=== PATIENT | male | born 1980 | race Caucasian/White ===

== ENCOUNTER → 2018-10-17 | Outpatient (CLI) | payer MEDICAID ==
--- NOTE | 2018-10-17 10:06 | REP ---
RIGHT UPPER QUADRANT ULTRASOUND: Real-time sonographic evaluation of the right upper quadrant was performed. There are small gallstones in the gallbladder with no gallbladder wall thickening or pericholecystic fluid or biliary dilatation. Common bile duct measures 3 mm. Liver demonstrates mild increased echotexture suggesting some degree of mild fatty infiltration. Pancreas could not be seen due to overlying bowel gas. Right kidney demonstrates no hydronephrosis with normal size 10.4 cm in length. IMPRESSION: Limited exam due to bowel gas. Small gallstones in the gallbladder without gallbladder wall thickening, pericholecystic fluid or biliary dilatation. Suspect mild fatty infiltration of the liver. Electronically Signed by Fan Larose MD 10/17/2018 05:23 P
== END ==
LOC: M RAD 08:16
PROVIDERS: ATTEND Physician Assistant
DX: R94.5 Abnormal results of liver function studies (principal); K80.20 Calculus of gallbladder without cholecystitis without obstruction

== ENCOUNTER 2021-05-05 12:28 | Emergency (ER) | payer MEDICAID ==
[~2021-05-05] VITALS: Ht 167.6 cm; Wt 84.1 kg
--- OUTSIDE RECORDS SUMMARY | 2021-05-05 12:38 | CCD | Continuity of Care Document ---
Author Author German ROSALES PA Organization Unknown Address [address] [place] [address] Phone [phone] Care Team Providers Care Halal Butcher Name Role Phone Bryant Meraz DO AUTM Unavailable Problems Active Problems Provider Date Hammer toe Karla Almeida DPM-pc Onset: 02/22/2018 Dystrophia unguium Karla Almeida DPM-pc Onset: 02/22/2018 Pain in limb Karla Almeida DPM-pc Onset: 02/22/2018 Metatarsus adductus Karla Almeida DPM-pc Onset: 02/22/2018 Ingrowing nail Karla Almeida DPM-pc Onset: 12/26/2020 Talipes planus Karla Almeida DPM-pc Onset: 12/26/2020 Tibialis tendinitis Karla Almeida DPM-pc Onset: 12/26/2020 Callosity on toe Karla Almeida DPM-pc Onset: 04/05/2019 Pronation Karla Almeida DPM-pc Onset: 04/05/2019 Social History Type Date Description Comments Sex Unknown Tobacco Use Start: Unknown Never Smoked Cigarettes Tobacco Use Start: Unknown Never Smoked Cigars Tobacco Use Start: Unknown Never Smoked A Pipe Smoking Status Reviewed: 03/10/21 Never Smoked A Pipe Tobacco Use Start: Unknown Never Used Smokeless Tobacco ETOH Use Denies alcohol use Tobacco Use Start: Unknown Patient has never smoked Allergies and adverse reactions Active Allergies Criticality Reaction | Severity Comments Date Penicillin Unable to assess criticality 02/22/2018 Medications Active Medications SIG Qnty Indications Ordering Provide r Date Dok 100mg Capsules Unknown Loratadine 10mg Tablets Unknown Metoprolol Tartrate 50mg Tablets Unknown Atorvastatin Calcium 10mg Tablets take 1 tablet by mouth once daily Unknown Ferrous Gluconate 324(38Fe) mg Tab lets take 1 tablet by mouth once daily Unknown Docqlace 100mg Capsules Unknown Omeprazole 20mg Capsules DR 1 by mouth every day Unknown History Medications Levofloxacin 500mg Tablets 1 by mouth once a day 10tabs Km Unger 1 - 03/10/2021 Immunizations Description No Information Available Vital Signs Date Vital Result Comment 05/03/2018 11:02am Weight 175.00 lb Weight 79.380 kg Height 64 inches 5'4" BMI (Body Mass Index) 30.0 kg/m2 BSA (Body Surface Area) 1.85 m2 02/22/2018 2:22pm Weight 176.00 lb Weight 79.834 kg Height 64 inches 5'4" BMI (Body Mass Index) 30.2 kg/m2 BSA (Body Surface Area) 1.85 m2 Results Description No Information Available Procedures Date Code Description Status 03/10/2021 48780 Trim Nondystrophic Nails Complet ed 02/04/2021 65188 Office/Outpatient Established Lo w MDM 20-29 Min Completed 02/04/2021 40047 Avulsion Nail Plate Simple Singl e Completed 01/21/2021 70553 Office/Outpatient Established SF MDM 10-19 Min Completed 12/26/2020 18743 Trim Nondystrophic Nails Complet ed Medical Devices Description No Information Available Encounters Description No Information Available Assessments Date Code Description Provider 03/10/2021 M21.6x9 Other acquired deformities of un specified foot Km Unger 03/10/2021 M20.41 Other hammer toe(s) (acquired), right foot Km Unger 03/10/2021 L60.0 Ingrowing nail Km Unger 03/10/2021 M21.40 Flat foot [pes planus] (acquired ), unspecified foot Km Unger 03/10/2021 L84 Corns and callosities Km Booker 03/10/2021 L60.3 Nail dystrophy Km Unger 02/04/2021 L60.0 Ingrowing nail Km Unger 02/04/2021 M20.41 Other hammer toe(s) (acquired), right foot Karla Almeida, DPM-pc 02/04/2021 M21.6x9 Other acquired deformities of un specified foot Karla Almeida DPM-pc 02/04/2021 M21.40 Flat foot [pes planus] (acquired ), unspecified foot Karla Almeida DPM-pc 02/04/2021 L84 Corns and callosities Karla Will iams, DPM-pc 02/04/2021 L60.3 Nail dystrophy Karla Almeida, DPM-pc 02/04/2021 M79.672 Pain in left foot Karla Almeida DPM-pc 02/04/2021 L03.031 Cellulitis of right toe Karla Gayle vianney, DPM-pc 01/21/2021 L60.0 Ingrowing nail Sohan Barbosa, DPM 12/26/2020 M20.41 Other hammer toe(s) (acquired), right foot Karla Almeida DPM-pc 12/26/2020 M21.6x9 Other acquired deformities of un specified foot Karla Almeida DPM-pc 12/26/2020 M21.40 Flat foot [pes planus] (acquired ), unspecified foot Karla Almeida DPM-pc 12/26/2020 L60.0 Ingrowing nail Karla Almeida, DPM-pc 12/26/2020 L84 Corns and callosities Karla Will iams, DPM-pc 12/26/2020 L60.3 Nail dystrophy Karla Almeida DPM-pc 12/26/2020 M79.672 Pain in left foot Karla MIMA AlmeidaM-renay Plan of Treatment Future Appointment(s):* 05/19/2021 1:15 pm - Km Unger at [facility] Podiatry 03/10/2021 - Km Unger* M21.6x9 Other acquired deformities of unspecified foot* Comments:* I removed hyperkeratosis from submet 5 and heels bilaterally with scalpel and burred to normal thickness. I trimmed dystrophic nails: x10 with nippers and bur. I will continue to monitor new nail growth on R1. Lotioned feet. Follow up in 10 weeks. * M20.41 Other hammer toe(s) (acquired), right foot * L60.0 Ingrowing nail * M21.40 Flat foot [pes planus] (acquired), unspecified foot * L84 Corns and callosities * L60.3 Nail dystrophy Functional Status Description No Information Available Mental Status Description No Information Available Referrals Description No Information Available
--- OUTSIDE RECORDS SUMMARY | 2021-05-05 12:38 | CCD | Continuity of Care Document ---
Author Author German LEHMAN DPM-PC Organization Unknown Address [address] [place] [address] Phone [phone] Care Team Providers Care Marine Equipment Test Engineer Name Role Phone Bryant Meraz DO AUTM Unavailable Problems Active Problems Provider Date Hammer toe Karla Lehman DPM-pc Onset: 02/22/2018 Dystrophia unguium Km Unger Onset: 02/22/2018 Pain in limb Karla Lehman DPM-renay Onset: 02/22/2018 Metatarsus adductus Km Unger Onset: 02/22/2018 Ingrowing nail Karla Lehman DPM-renay Onset: 12/26/2020 Talipes planus Karla Lehman DPM-renay Onset: 12/26/2020 Tibialis tendinitis Km Unger Onset: 12/26/2020 Callosity on toe Karla Lehman DPM-renay Onset: 04/05/2019 Pronation Karla Lehman DPM-renay Onset: 04/05/2019 Social History Type Date Description Comments Sex Unknown Tobacco Use Start: Unknown Never Smoked Cigarettes Tobacco Use Start: Unknown Never Smoked Cigars Tobacco Use Start: Unknown Never Smoked A Pipe Smoking Status Reviewed: 01/21/21 Never Smoked A Pipe Tobacco Use Start: Unknown Never Used Smokeless Tobacco ETOH Use Denies alcohol use Tobacco Use Start: Unknown Patient has never smoked Allergies, Adverse Reactions, Alerts Active Allergies Reaction Severity Comments Date Penicillin 02/22/2018 Medications Active Medications SIG Qnty Indications Ordering Provide r Date Levofloxacin 500mg Tablets 1 by mouth once a day 10tabs Karla Lehman DPM-pc Dok 100mg Capsules Unknown Loratadine 10mg Tablets Unknown Metoprolol Tartrate 50mg Tablets Unknown Atorvastatin Calcium 10mg Tablets take 1 tablet by mouth once daily Unknown Ferrous Gluconate 324(38Fe) mg Tab lets take 1 tablet by mouth once daily Unknown Docqlace 100mg Capsules Unknown Omeprazole 20mg Capsules DR 1 by mouth every day Unknown Immunizations Description No Information Available Vital Signs [...] Information Available Procedures Date Code Description Status 02/04/2021 20391 Office/Outpatient Established Lo w MDM 20-29 Min Completed 02/04/2021 64967 Avulsion Nail Plate Simple Singl e Completed 01/21/2021 00746 Office/Outpatient Established SF MDM 10-19 Min Completed 12/26/2020 23072 Trim Nondystrophic Nails Complet ed 10/17/2020 27335 Trim Nondystrophic Nails Complet ed 08/08/2020 73742 Trim Nondystrophic Nails Complet ed Medical Devices Description No Information Available Encounters Type Date Location Provider Dx Diagnosis Office Visit 02/04/2021 1:15p [facility] Podiatry Km Unger L6 0.0 Ingrowing nail M20.41 Other hammer toe(s) (acquire d), right foot M21.6x9 Other acquired deformities o f unspecified foot M21.40 Flat foot [pes planus] (acqu ired), unspecified foot L84 Corns and callosities L60.3 Nail dystrophy M79.672 Pain in left foot L03.031 Cellulitis of right toe Assessments Date Code Description Provider 02/04/2021 L60.0 Ingrowing nail Km Unger 02/04/2021 M20.41 Other hammer toe(s) (acquired), right foot Km Unger 02/04/2021 M21.6x9 Other acquired deformities of un specified foot Karla Lehman, DPM-pc 02/04/2021 M21.40 Flat foot [pes planus] (acquired ), unspecified foot Karla Lehman, DPM-pc 02/04/2021 L84 Corns and callosities Karla Will iams, DPM-pc 02/04/2021 L60.3 Nail dystrophy Karla Lehman, DPM-pc 02/04/2021 M79.672 Pain in left foot Karla Lehman , DPM-pc 02/04/2021 L03.031 Cellulitis of right toe Karla faith, DPM-pc 01/21/2021 L60.0 Ingrowing nail Sohan Barbosa, DPM 12/26/2020 M20.41 Other hammer toe(s) (acquired), right foot Karla Lehman, DPM-pc 12/26/2020 M21.6x9 Other acquired deformities of un specified foot Karla Lehman, DPM-pc 12/26/2020 M21.40 Flat foot [pes planus] (acquired ), unspecified foot Karla Lehman, DPM-pc 12/26/2020 L60.0 Ingrowing nail Krala Lehman, DPM-pc 12/26/2020 L84 Corns and callosities Karla Will iams, DPM-pc 12/26/2020 L60.3 Nail dystrophy Karla Lehman, DPM-pc 12/26/2020 M79.672 Pain in left foot Karla Lehman , DPM-pc 10/17/2020 M20.41 Other hammer toe(s) (acquired), right foot Karla Lehman, DPM-pc 10/17/2020 L60.3 Nail dystrophy Karla Lehman, DPM-pc 10/17/2020 M21.6x9 Other acquired deformities of un specified foot Karla Lehman, DPM-pc 10/17/2020 L84 Corns and callosities Karla Will iams, DPM-pc 08/08/2020 M20.41 Other hammer toe(s) (acquired), right foot Karla Lehman, DPM-pc 08/08/2020 L60.3 Nail dystrophy Karla Lehman, DPM-pc 08/08/2020 M21.6x9 Other acquired deformities of un specified foot Km Unger 08/08/2020 L84 Corns and callosities Karla Buenrostro Km carlson 08/08/2020 M79.672 Pain in left foot Km Unger Plan of Treatment Future Appointment(s):* 03/06/2021 11:00 am - Km Unger at [facility] Podiatry 02/04/2021 - Km Unger* L60.0 Ingrowing nail * M20.41 Other hammer toe(s) (acquired), right foot * M21.6x9 Other acquired deformities of unspecified foot * M21.40 Flat foot [pes planus] (acquired), unspecified foot * L84 Corns and callosities * L60.3 Nail dystrophy * M79.672 Pain in left foot * L03.031 Cellulitis of right toe* Comments:* I was unable to anesthetize him since he was agitated. He was able to do an examination of his right foot to ensure that he did not have any fractures to his dislocations by doing range of motion palpation and determined that the only thing a problematic was the infected ingrown nuisance nail of the right hallux I removed 3/4 of the distal tip of the right hallux nail and applied topical antibiotics, 2 x 2 and Coban. I put him on Levaquin. He can soak his foot in Epsom salts quarter cup in water for 15 minutes and then apply a light dressing with antibiotic and Band- Aid to the foot. Follow up in 1 week. * All * New Medication:* Levofloxacin 500 mg - 1 by mouth once a day Functional Status Description No Information Available Mental Status Description No Information Available Referrals Description No Information Available
--- OUTSIDE RECORDS SUMMARY | 2021-05-05 12:38 | CCD | Continuity of Care Document ---
Author Author German ROSALES PA Organization Unknown Address [address] [place] [address] Phone [phone] Care Team Providers Care Seat Nailer Name Role Phone Bryant Meraz DO AUTM [...] Available Procedures Date Code Description Status 03/10/2021 15190 Trim Nondystrophic Nails Complet ed 02/04/2021 16017 Office/Outpatient Established Lo w MDM 20-29 Min Completed 02/04/2021 07981 Avulsion Nail Plate Simple Singl e Completed 01/21/2021 30180 Office/Outpatient Established SF MDM 10-19 Min Completed 12/26/2020 44215 Trim Nondystrophic Nails Complet ed Medical Devices [...] 05/19/2021 1:15 pm - Km Unger at [facility] Podiatry 03/10/2021 - Km Unger* M21.6x9 Other [...]
--- OUTSIDE RECORDS SUMMARY | 2021-05-05 12:38 | CCD ---
Continuity of Care Document (CCD) Created on: 02/04/2021 German Brown External Reference #: [id number] : [id number] Sex: Male Author Author German LEHMAN DPM-PC Organization Unknown Address [address] [place] [address] Phone [phone] Care Team Providers Care Dispatcher Motor Vehicle Name Role Phone Bryant Meraz DO AUTM [...] Available Procedures Date Code Description Status 02/04/2021 16344 Office/Outpatient Established Lo w MDM 20-29 Min Completed 02/04/2021 53492 Avulsion Nail Plate Simple Singl e Completed 01/21/2021 02068 Office/Outpatient Established SF MDM 10-19 Min Completed 12/26/2020 71129 Trim Nondystrophic Nails Complet ed 10/17/2020 28041 Trim Nondystrophic Nails Complet ed 08/08/2020 96060 Trim Nondystrophic Nails Complet ed Medical Devices Description No Information Available Encounters Type Date Location Provider Dx Diagnosis Office Visit 02/04/2021 1:15p [facility] Podiatry Km Unger L6 0.0 Ingrowing [...] Karla Lehman, DPM-pc 12/26/2020 L60.0 Ingrowing nail Karla Lehman, DPM-pc 12/26/2020 L84 Corns and callosities [...] 03/06/2021 11:00 am - Km Unger at [facility] Podiatry 02/04/2021 - Km Unger* L60.0 [...]
--- OUTSIDE RECORDS SUMMARY | 2021-05-05 12:38 | CCD | Continuity of Care Document ---
Author Author German MOHAN D.O. Organization Unknown Address [address] [place] [id number] Phone [phone] Care Team Providers Care Broke Worker Name Role Phone Brennan Dela Cruz M.D. AUTM [phone] Bryant Mohan D.O. AUTM [phone] Problems Active Problems Provider Date Mental retardation Elias Torres M.D. Onset: 04/12/2007 Obstructive hydrocephalus Bryant Mohan D.O., JASMYNEFP Onset : 05/18/2007 Allergic rhinitis Elias Torres M.D. Onset: 07/26/2007 Heart valve replacement Elias Torres M.D. Onset: 008 Note: bovine Gastroesophageal reflux disease Bryant Mohan D.O., JASMYNEFP Onset: 05/30/2009 Hyperlipidemia Bryant Mohan D.O., FAAFP Onset: 09/28 Chronic nonalcoholic liver disease Bryant Mohan D.O., FA AFP Onset: 02/28/2013 Proteinuria Bryant Mohan D.O., FAAFP Onset: 08/2013 Benign hypertension Bryant Mohan D.O., FAAFP Onset: 11/26 Elevated liver enzymes level Bryant Mohan D.O., BARBRA On set: 12/08/2014 Note: FOLLOWED BY GI NEG W/U ? FATTY LIVER Intellectual disability Bryant Mohan D.O., JASMYNEFP Onset: 12/02/2018 Aortic valve disorder Bryant Mohan D.O., FAAFP Onset: Note: TAVR Social History Type Date Description Comments Sex Unknown Tobacco Use Start: Unknown Never Smoked Cigarettes ETOH Use alcohol use: never used Recreational Drug Use Never Used Drugs Tobacco Use Start: Unknown Patient has never smoked Smoking Status Reviewed: 11/20/20 Patient has never smoked Allergies, Adverse Reactions, Alerts Active Allergies Criticality Reaction | Severity Comments Date Penicillin Unable to assess criticality 08/19/2007 Medications Active Medications SIG Qnty Indications Ordering Provide r Date Carafate 1GM/10ML Suspension take 10ml by mouth three times a day 840ml Bryant Mohan D.O., F AAFP 11/29/2020 Albuterol Sulfate HFA 108(90Base) mcg/Act Aerosol Inhale 2 Puffs By Mouth Every 4 To 6 Hours as Needed 6.7units [facility] D.O., [facility] 11/05/[address] 1 by mouth every day (recommended by oncology) 60caps Bryant hanna D.O., FAAFP 08/14/2020 Pulmicort 0.5mg/2ML Suspension one by neb twice a day please call 60ml Bryant Mohan D.O., F AA 04/29/2020 Hydrocortisone 2.5% Cream apply externally two times a day to back x 10 dys 60gm Bryant Cherry , D.Charlene, [facility] 10/30/2019 Debrox 6.5% Solution 4 drops in each ear, let drops stay in each ear for 10 minutes x 3 days 1Bottle Bryant Mohan D.O., FAAFP 12/23/2018 Dok 100mg Capsules take 1 capsule by mouth twice daily for constipation 60caps Irvin Davis, FAAFP 05/11/2018 Clindamycin HCL 300mg Capsules take 2 capsules by mouth 1 hour before procedure 6caps Josette Mohan D.O., FAAFP 04/28/2018 Ferrous Gluconate 324(38Fe) mg Tab lets Take 1 Tablet By Mouth Every Day(Take For 60 Days) 30tabs Bryant Mohan D.O., FAAFP 10/14/2016 Metoprolol Tartrate 50mg Tablets Take 1 Tablet By Mouth Twice Daily 60tabs Bryant Mohan D.O ., FAAFP 03/20/2015 Albuterol Sulfate 0.63mg/3ML Nebul izer Inhale The Contents Of 1 Vial Every 6 Hours as Directed If Needed 300units Bryant Mohan D.O., FAAFP 04/15/2009 Loratadine 10mg Tablets Take 1 Tablet By Mouth Every Day 90tabs Bryant Mohan D.O., FAAFP Fish Oil Extra Strength 1200mg Capsules Unknown Moderna Covid-19 Vaccine 100mcg/0.5ML Suspension pt recieved both Unknown Aspirin 325mg Tablets 1 by mouth every day Per Process Server For Aortic Valve Replacement U nknown History Medications Aspirin 325mg Tablets take 1 tablet by mouth once daily Bryant Mohan D.O., FAAFP - 11/29/2020 Medications Administered in Office Medication SIG Qnty Indications Ordering Provider Date Injection (SC)/(Im) Injection [facility] D.O., [facility] 03/21/2021 Injection (SC)/(Im) Injection Bryant Mohan D.O., FAAFP 04/10/2014 Injection (SC)/(Im) Injection Bryant Mohan D.O., FAAFP 05/30/2013 Injection (SC)/(Im) Injection Bryant Mohan D.O., FAAFP 07/27/2012 Injection (SC)/(Im) Injection Bryant Mohan D.O., FAAFP 04/04/2012 Injection (SC)/(Im) Injection Bryant Mohan D.O., FAAFP 05/18/2011 Injection (SC)/(Im) Injection Bryant Mohan D.O., FAAFP 03/03/2011 Injection (SC)/(Im) Injection Bryant Mohan D.O., FAAFP 06/24/2010 Immunizations CPT Code Status Date Vaccine Lot # [id number] Given 03/21/2021 Influenza Virus Vaccine, Quadrivalent, Slit Virus, Im Use 3Y & Up 40100 Given 04/29/2020 Influenza Virus Vaccine, Quadrivalent, Slit Virus, Im Use 3Y & Up [id number] 97403 Given 06/16/2019 Influenza Virus Vaccine, Quadrivalent, Slit Virus, Im Use 3Y & Up [id number] 25377 Given 05/13/2018 Influenza Virus Vaccine, Quadrivalent, Slit Virus, Im Use 3Y & Up [id number] 66259 Given 04/20/2017 Influenza Virus Vaccine, Quadrivalent, Slit Virus, Im Use 3Y & Up [id number] 27074 Given 05/13/2016 Influenza Virus Vaccine, Quadrivalent, Slit Virus, Im Use 3Y & Up [id number] 59572 Given 08/28/2015 Influenza Virus Vac. Split Virus Individuals 3 Years And Above 79711 Given 04/10/2014 Influenza Virus Vac. Split Virus Individuals 3 Years And Above [id number] 15140 Given 01/10/2014 Tdap Tetanus,Dip htheria Toxoids/Acellular Pertussis 7Yrs Or Older [id number] 72029 Given 05/30/2013 Influenza Virus Vac. Split Virus Individuals 3 Years And Above [id number] 01415 Given 07/27/2012 PPD Tuberculosis Intradermal 41798 Given 04/04/2012 Influenza Virus Vac. Split Virus Individuals 3 Years And Above [id number] 87071 Given 05/18/2011 Influenza Virus Vac. Split Virus Individuals 3 Years And Above [id number] 26109 Given 03/03/2011 Pneumococcal Immunization 06 14 11570 Given 06/24/2010 Influenza Virus Vac. Split Virus Individuals 3 Years And Above [id number] 31312 Given 05/30/2009 Influenza Virus Vac. Split Virus Individuals 3 Years And Above [id number] 25270 Given 02/06/2004 PPD Tuberculosis Intradermal Vital Signs Date Vital Result Comment 03/21/2021 9:32am BP Systolic 130 mmHg BP Diastolic 70 mmHg Body Temperature 97.2 F Heart Rate 71 /min Respiratory Rate 18 /min Height 64.25 inches 5'4.25" Weight 186.00 lb Clarks Body Weight 130 lb BMI (Body Mass Index) 31.7 kg/m2 O2 % BldC Oximetry 96 % 11/20/2020 1:41pm BP Systolic 130 mmHg BP Diastolic 72 mmHg Body Temperature 98.0 F Heart Rate 71 /min Height 64.25 inches 5'4.25" Weight 182.00 lb Clarks Body Weight 130 lb BMI (Body Mass Index) 31.0 kg/m2 O2 % BldC Oximetry 98 % Results Test Acquired Date Facility Test Result H/L Range Note CBC W/Automated Diff 11/20/2020 [place] [address] [phone] CBC W/Automated Diff (SEE NOTE) 1, 2 WBC 6.0 10^3/uL 4.2 - 11.0 RBC 4.91 10^6/uL 4.50 - 6.30 Hemoglobin 11.7 g/dL Low 14.0 - 16.0 Hematocrit 38.3 % Low 41.0 - 51.0 MCV 78.0 fL Low 80.0 - 94.0 MCH 23.8 pg Low 27.0 - 34.0 MCHC 30.5 g/dL Low 31.0 - 36.0 RDW 13.7 % 11.5 - 14.8 Platelets 258 10^3/uL 150 - 450 MPV 10.8 fL High 7.4 - 10.4 Neut 60.9 % 37.0 - 80.0 Lymph 22.9 % Low 25.0 - 40.0 [place] 7.2 % 3.0 - 8.0 Eos 7.5 % High 0.0 - 7.0 Baso 1.2 % 0.0 - 2.0 %Ig 0.3 % High 0.0 - 0.0 %NRBC 0.0 % 0.0 - 0.0 #Neut 3.65 10^3/uL 2.00 - 6.90 #Lymph 1.37 10^3/uL 0.60 - 3.40 #[place] 0.43 10^3/uL 0.00 - 0.90 #Eos 0.45 10^3/uL 0.00 - 0.70 #Baso 0.07 10^3/uL 0.00 - 0.20 #Ig 0.02 10^3/uL 0.00 - 0.10 #NRBC 0.00 10^3/uL 0.00 - 0.00 Manual Diff NOT INDICATED RBC Morph NOT INDICATED Comprehensive Metabolic Panel 11/20/2020 [place] [address] [phone] Comprehensive Metabo (SEE NOTE) 3 Sodium 140 mEq/L 134 - 153 Potassium 4.1 mEq/L 3.6 - 5.0 Chloride 103 mEq/L 98 - 107 Co2 28 mEq/L 22 - 30 Glucose 88 mg/dL 70 - 99 BUN 15 mg/dL 7 - 21 Creatinine 0.8 mg/dL 0.7 - 1.5 BUN/Creat 19 8 - 27 Total Protein 7.2 g/dL 6.3 - 8.2 Albumin 4.1 g/dL 3.9 - 5.0 Globulin 3.1 GM/DL 2.4 - 3.2 A/G Ratio 1.3 0.8 - 2.0 Calcium 9.2 mg/dL 8.4 - 10.2 Total Bili <0.7 mg/dL 0.2 - 1.3 Alkaline Phos 201 U/L High 38 - 126 Sgot/Ast 44 U/L High 5 - 40 SGPT/Alt 51 U/L 7 - 56 Anion Gap 9.0 mmol/L 8.0 - 16.0 Age 40 yrs Non-Aa GFR >60 mL/min Afr Amer GFR >60 mL/min 4 Cve Panel 11/20/2020 [place] [address] [phone] Cve Panel (SEE NOTE) 5 Cholesterol 226 mg/dL High 131 - 200 Triglycerides 146 mg/dL 35 - 160 HDL 71 mg/dL 29 - 86 LDL 143 mg/dL 65 - 175 Risk Factor 3.2 Low 3.4 - 4.9 LDL/HDL 2.01 1.00 - 3.55 6 Urinalysis 11/20/2020 [place] [address] [phone] Urinalysis (SEE NOTE) 7 Source Random Void Color yellow Normal: Yellow Clarity clear Normal: Clear Spec [place] 1.020 1.001 - 1.030 pH 5 5 - 9 Glucose NORM Normal: Negative Bilirubin NEG Normal: Negative Ketone NEG Normal: Negative Protein 100 Abnormal Normal: Negative Nitrite NEG Normal: Negative Blood NEG Normal: Negative Leuk Est 100 Abnormal Normal: Negative Urobilinogen NOR less than 1.0 mg/dL Microscopic See Below WBC 30 - 40 Abnormal Normal: None Seen RBC 0 - 1 Normal: None Seen Epithelial FEW Normal: None Seen Bacteria 1+ SMALL Normal: None Seen Mucous Trace Normal: None Seen Laboratory test finding 11/20/2020 [facility] [place] [address] [phone] CPK 118 U/L 30 - 170 Culture Urine 11/20/2020 [facility] [place] [address] [phone] Culture Urine (SEE NOTE) 8 Laboratory test finding 11/20/2020 [facility] [place] [address] [phone] Ferritin Kristina 14.5 ng/mL 5.0 - 244 Iron Binding Capacity 11/20/2020 [facility] [place] [address] [phone] Iron 28 g/dL Low 42 - 135 Uibc 404 g/dL High 112 - 347 Tibc 432 g/dL 250 - 450 Iron Sat 6 % 1 {SOURCE: Random Void~NURSE COLLECTED? N Is patient fasting? N Is patient fasting? N 2 COMPLETE BLOOD COUNT 3 COMPREHENSIVE METABOLIC PANE L 4 Male GFR Interprentation 20-49 yrs >60 mL/min Normal 50-59 yrs >56 mL/min Normal 60-69 yrs >49 mL/min Normal 70-79yrs >42 mL/min Normal 80 and above >35 mL/min Normal Female GFR Interpretation 20-39 yrs >60 mL/min Normal 40-49 yrs >58 mL/min Normal 50-59 yrs >51 mL/min Normal 60-69 yrs >45 mL/min Normal 70-79 yrs >39 mL/min Normal 80 and above >32 mL/min Normal 5 LIPID PANEL 6 CVE RISK CHOL/HDL LDL/HDL MEN: 1/2 AVERAGE 3.43 1.00 AVERAGE 4.97 3.55 2X AVERAGE 9.55 6.25 3X AVERAGE 23.99 7.99 WOMEN: / AVERAGE 3.27 1.47 AVERAGE 4.44 3.22 2X AVERAGE 7.05 5.03 3X AVERAGE 11.04 6.14 7 URINALYSIS 8 _CULTURE URINE_ ^$[id number] ^^[id number] $$867893 ^^596794 $$075890 $$361638 $$578213 $$348521 $$180439 $$934311 $$082391 $$765614 $$277989 $$957946 $$872877 $$800475 $$888389 $$325240 $$842153 $$693639 $$740973 $$724721 $$788503 $$821638 $$320635 $$892470 $$147500 ^^665044 $$918663 $$735901 $$092310 -- Continued on next page -- Patient: PRICILA Cevallos Order: Page 2 Culture: CULTURE URINE Status: Final -- Continued on next page -- Patient: PRICILA SON J Order: Page 2 Culture: CULTURE URINE Status: Prelim $$[id number] $$[id number] REPORTED DATE/TIME: 11/26/2020 14:06 Culture: CULTURE URINE Status: Final Urine Culture,Comprehensive: P1 No growth in 36 - 48 hours. Previous result entered on 11/23/2020 09:53 ET No growth after 18-24 hours. P1 [facility]: [id number] [address] [place] [phone] [facility] [address] Undercollar Baster : Aguilar Schwartz MD NPI #: Casing Sewer : 11/23/20.1042.XMT.SENT REF 11/27/20.XMT.SENT REF 11/27/20.DW .to MARQUES JOANGAYATHRI via fax Procedures Date Code Description Status 03/21/2021 65555 Office/Outpatient Established Mo d MDM 30-39 Min Completed 03/21/2021 56732 Injection (SC)/(Im) Completed 11/22/2020 04447 Removal Impacted Cerumen Irrigat ion/Lavage Unilateral Completed 11/20/2020 64386 Office/Outpatient Established Mo d MDM 30-39 Min Completed Medical Devices Description No Information Available Encounters Type Date Location Provider Dx Diagnosis Office Visit 03/21/2021 9:15a [place] [facility] Bryant Mohan D.O ., FAAFP E78.5 Hyperlipidemia, unspecified I10 Essential (primary) hyperten brit K76.0 Fatty (change of) liver, not elsewhere classified K21.9 Gastro-esophageal reflux dis ease without esophagitis Z95.2 Presence of prosthetic heart valve D50.9 Iron deficiency anemia, unsp ecified Office Visit 11/20/2020 2:00p [place] [facility] Luli Davis, FAAFP E78.5 Hyperlipidemia, unspecified I10 Essential (primary) hyperten brit K76.0 Fatty (change of) liver, not elsewhere classified K21.9 Gastro-esophageal reflux dis ease without esophagitis F79 Unspecified intellectual dis abilities Z95.2 Presence of prosthetic heart valve H61.22 Impacted cerumen, left ear H61.21 Impacted cerumen, right ear Assessments Date Code Description Provider 03/21/2021 E78.5 Hyperlipidemia, unspecified Adrian Mohan D.O., FAAFP 03/21/2021 I10 Essential (primary) hypertension Bryant Mohan D.O., FAAFP 03/21/2021 K76.0 Fatty (change of) liver, not els ewhere classified Bryant Mohan D.O., FAAFP 03/21/2021 K21.9 Gastro-esophageal reflux disease without esophagitis Bryant Mohan D.O., FAAFP 03/21/2021 Z95.2 Presence of prosthetic heart jodi ve Jemal Davis.Charlene, FAAFP 03/21/2021 D50.9 Iron deficiency anemia, unspecif ied Bryant Mohan D.O., FAAFP 11/22/2020 H61.22 Impacted cerumen, left ear Lyndon Mohan D.O., FAAFP 11/22/2020 H61.21 Impacted cerumen, right ear Irvin MiddletonOSabrina, FAAFP 11/20/2020 E78.5 Hyperlipidemia, unspecified Adrian Mohan D.O., [facility] 11/20/2020 I10 Essential (primary) hypertension Bryant Mohan D.O., [facility] 11/20/2020 K76.0 Fatty (change of) liver, not els ewhere classified Bryant Mohan D.O., [facility] 11/20/2020 K21.9 Gastro-esophageal reflux disease without esophagitis Bryant Mohan D.O., [facility] 11/20/2020 F79 Unspecified intellectual disabil ities Bryant Mohan D.O., [facility] 11/20/2020 Z95.2 Presence of prosthetic heart jodi ve Bryant Mohan D.O., [facility] 11/20/2020 H61.22 Impacted cerumen, left ear Lyndon Mohan D.O., [facility] 11/20/2020 H61.21 Impacted cerumen, right ear Adrian Mohan D.O., FAAFP Plan of Treatment Future Appointment(s):* 06/24/2021 10:00 am - Bryant Mohan D.O., FAAFP at [facility] Functional Status Description No Information Available Mental Status Description No Information Available Referrals Refer to Reason for Referral Status Appt Date [facility] PLEASE EVAL COMPLAINTS OF SOB AND OCCAS IONAL WHEEZING Closed 03/12/[address] [place] [address] [phone]
--- OUTSIDE RECORDS SUMMARY | 2021-05-05 12:38 | CCD | Continuity of Care Document ---
Author Author German MOHAN D.O. Organization Unknown Address [address] [place] [address] Phone [phone] Care Team Providers Care Blender/Braze Applicator Name Role Phone Brennan Dela Cruz M.D. AUTM [phone] Bryant Mohan D.O. AUTM [phone] Problems Active Problems Provider Date Mental retardation Elias Torres M.D. Onset: 04/12/2007 Obstructive hydrocephalus Bryant Mohan D.O., JASMYNEFP Onset : 05/18/2007 Allergic rhinitis Elias Torres M.D. Onset: 07/26/2007 Heart valve replacement Elais Torres M.D. Onset: 008 Note: bovine Gastroesophageal [...] Hours as Needed 6.7units [facility].O., [facility] 11/05/[address] 1 by mouth every day (recommended by oncology) 60caps Bryant hanna D.O., FAAFP 08/14/2020 Pulmicort 0.5mg/2ML Suspension one by neb twice a day please call 60ml Bryant Mohan D.O., F AA 04/29/2020 Hydrocortisone 2.5% Cream apply externally two times a day to back x 10 dys 60gm Bryant Cherry , D.Charlene, [facility] 10/30/2019 Debrox 6.5% Solution 4 drops in [...] Directed If Needed 300units Bryant [facility]an D.O., [facility] 04/15/2009 Loratadine 10mg Tablets Take 1 Tablet By Mouth Every Day 90tabs Bryant Mohan D.O., FAAFP Fish Oil Extra Strength 1200mg Capsules Unknown Moderna Covid-19 Vaccine 100mcg/0.5ML Suspension pt recieved both Unknown Aspirin 325mg Tablets 1 by mouth every day Per College Counselor For Aortic Valve Replacement U nknown History Medications Aspirin 325mg Tablets take 1 tablet by mouth once daily Bryant [facility]an D.O., [facility] - 11/29/2020 Medications Administered in Office Medication SIG Qnty Indications Ordering Provider Date Injection (SC)/(Im) Injection Bryant Mohan D.O., [facility] 03/21/2021 Injection (SC)/(Im) Injection Bryant Mohan D.O., [...] CPT Code Status Date Vaccine Lot # [id number] Given 03/21/2021 Influenza Virus Vaccine, Quadrivalent, Slit Virus, Im Use 3Y & Up [id number] 04268 Given 04/29/2020 Influenza Virus Vaccine, Quadrivalent, Slit Virus, Im Use 3Y & Up [id number] 03485 Given 06/16/2019 Influenza Virus Vaccine, Quadrivalent, Slit Virus, Im Use 3Y & Up [id number] 19574 Given 05/13/2018 Influenza Virus Vaccine, Quadrivalent, Slit Virus, Im Use 3Y & Up [id number] 39460 Given 04/20/2017 Influenza Virus Vaccine, Quadrivalent, Slit Virus, Im Use 3Y & Up [id number] 02478 Given 05/13/2016 Influenza Virus Vaccine, Quadrivalent, Slit Virus, Im Use 3Y & Up [id number] 97906 Given 08/28/2015 Influenza Virus Vac. Split Virus Individuals 3 Years And Above 45161 Given 04/10/2014 Influenza Virus Vac. Split Virus Individuals 3 Years And Above [id number] 83503 Given 01/10/2014 Tdap Tetanus,Dip htheria Toxoids/Acellular Pertussis 7Yrs Or Older [id number] 71490 Given 05/30/2013 Influenza Virus Vac. Split Virus Individuals 3 Years And Above [id number] 37286 Given 07/27/2012 PPD Tuberculosis Intradermal 36889 Given 04/04/2012 Influenza Virus Vac. Split Virus Individuals 3 Years And Above [id number] 37461 Given 05/18/2011 Influenza Virus Vac. Split Virus Individuals 3 Years And Above [id number] 89692 Given 03/03/2011 Pneumococcal Immunization 06 14 55828 Given 06/24/2010 Influenza Virus Vac. Split Virus Individuals 3 Years And Above [id number] 83130 Given 05/30/2009 Influenza Virus Vac. Split Virus Individuals 3 Years And Above [id number] 14427 Given 02/06/2004 PPD Tuberculosis Intradermal Vital Signs Date Vital Result Comment 03/21/2021 9:32am BP Systolic 130 mmHg BP Diastolic 70 mmHg Body Temperature 97.2 F Heart Rate 71 /min Respiratory Rate 18 /min Height 64.25 inches 5'4.25" Weight 186.00 lb [place] Body Weight 130 lb BMI (Body Mass Index) 31.7 kg/m2 O2 % BldC Oximetry 96 % 11/20/2020 1:41pm BP Systolic 130 mmHg BP Diastolic 72 mmHg Body Temperature 98.0 F Heart Rate 71 /min Height 64.25 inches 5'4.25" Weight 182.00 lb [place] Body Weight 130 lb BMI (Body Mass Index) 31.0 kg/m2 O2 % BldC Oximetry 98 % Results Test Acquired Date Facility Test Result H/L Range Note CBC With Differential/Platelet 03/21/2021 [facility] [place] E WBC 4.6 x10E3/uL 3.4-10.8 RBC 5.83 x10E6/uL High 4.14-5.80 Hemoglobin 15.8 g/dL 13.0-17.7 Hematocrit 47.1 % 37.5-51.0 MCV 81 fL 79-97 MCH 27.1 pg 26.6-33.0 MCHC 33.5 g/dL 31.5-35.7 RDW 15.0 % 11.6-15.4 Platelets 167 x10E3/uL 150-450 Neutrophils 53 % Not Estab. Lymphs 30 % Not Estab. Monocytes 8 % Not Estab. Eos 7 % Not Estab. Basos 2 % Not Estab. Immature Cells TNP Neutrophils (Absolute) 2.4 x10E3/uL 1.4-7.0 Lymphs (Absolute) 1.4 x10E3/uL 0.7-3.1 Monocytes(Absolute) 0.4 x10E3/uL 0.1-0.9 Eos (Absolute) 0.3 x10E3/uL 0.0-0.4 Baso (Absolute) 0.1 x10E3/uL 0.0-0.2 Immature Granulocytes 0 % Not Estab. Immature Grans (Abs) 0.0 x10E3/uL 0.0-0.1 NRBC TNP Hematology Comments: TNP Comp. Metabolic Panel (14) 03/21/2021 [facility] [place] Glucose 94 mg/dL 65-99 BUN 13 mg/dL 6-20 Creatinine 0.79 mg/dL 0.76-1.27 eGFR If NonAfricn Am 113 mL/min/1.73 >59 eGFR If Africn Am 131 mL/min/1.73 >59 1 BUN/Creatinine Ratio 16 9-20 Sodium 140 mmol/L 134-144 Potassium 4.3 mmol/L 3.5-5.2 Chloride 103 mmol/L 96-106 Carbon Dioxide, Total 26 mmol/L 20-29 Calcium 9.1 mg/dL 8.7-10.2 Protein, Total 7.1 g/dL 6.0-8.5 Albumin 3.9 g/dL Low 4.0-5.0 Globulin, Total 3.2 g/dL 1.5-4.5 A/G Ratio 1.2 1.2-2.2 Bilirubin, Total 0.6 mg/dL 0.0-1.2 Alkaline Phosphatase 215 IU/L High 44-121 2 Ast (Sgot) 51 IU/L High 0-40 Alt (SGPT) 49 IU/L High 0-44 CBC W/Automated Diff 11/20/2020 [place], [place] [address] [phone] CBC W/Automated Diff (SEE NOTE) 3, 4 WBC 6.0 10^3/uL 4.2 - 11.0 RBC [...] Lymph 22.9 % Low 25.0 - 40.0 [place] 7.2 % 3.0 - 8.0 Eos 7.5 % High 0.0 - 7.0 Baso 1.2 % 0.0 - 2.0 %Ig 0.3 % High 0.0 - 0.0 %NRBC 0.0 % 0.0 - 0.0 #Neut 3.65 10^3/uL 2.00 - 6.90 #Lymph 1.37 10^3/uL 0.60 - 3.40 #[place] 0.43 10^3/uL 0.00 - 0.90 #Eos 0.45 10^3/uL 0.00 - 0.70 #Baso 0.07 10^3/uL 0.00 - 0.20 #Ig 0.02 10^3/uL 0.00 - 0.10 #NRBC 0.00 10^3/uL 0.00 - 0.00 Manual Diff NOT INDICATED RBC Morph NOT INDICATED Comprehensive Metabolic Panel 11/20/2020 [facility] [place] [address] [phone] Comprehensive Metabo (SEE NOTE) 5 Sodium 140 mEq/L 134 - 153 Potassium [...] >60 mL/min Afr Amer GFR >60 mL/min 6 Cve Panel 11/20/2020 [place] [address] [phone] Cve Panel (SEE NOTE) 7 Cholesterol 226 mg/dL High 131 - 200 Triglycerides 146 mg/dL 35 - 160 HDL 71 mg/dL 29 - 86 LDL 143 mg/dL 65 - 175 Risk Factor 3.2 Low 3.4 - 4.9 LDL/HDL 2.01 1.00 - 3.55 8 Urinalysis 11/20/2020 [place] [address] [phone] Urinalysis (SEE NOTE) 9 Source Random Void Color yellow Normal: Yellow Clarity clear Normal: Clear Spec [place] 1.020 1.001 - 1.030 pH 5 5 [...] Normal: None Seen Laboratory test finding 11/20/2020 [place] [address] [phone] CPK 118 U/L 30 - 170 Culture Urine 11/20/2020 [place] [address] [phone] Culture Urine (SEE NOTE) 10 Laboratory test finding 11/20/2020 [place] [address] [phone] Ferritin Kristina 14.5 ng/mL 5.0 - 244 Iron Binding Capacity 11/20/2020 [place] [address] [phone] Iron 28 g/dL Low 42 - 135 Uibc 404 g/dL High 112 - 347 Tibc 432 g/dL 250 - 450 Iron Sat 6 % 1 [facility] currently reports eGFR in compliance with the current recommendations of the National Kidney Foundation. [facility] will update reporting as new guidelines are published from the NKF-ASN Task force. 2 Please note reference inte rval change 3 {SOURCE: Random Void~NURSE COLLECTED? N Is patient fasting? N Is patient fasting? N 4 COMPLETE BLOOD COUNT 5 COMPREHENSIVE METABOLIC PANE L 6 Male GFR Interprentation 20-49 yrs >60 mL/min Normal 50-59 yrs >56 mL/min Normal 60-69 yrs >49 mL/min Normal 70-79yrs >42 mL/min Normal 80 and above >35 mL/min Normal Female GFR Interpretation 20-39 yrs >60 mL/min Normal 40-49 yrs >58 mL/min Normal 50-59 yrs >51 mL/min Normal 60-69 yrs >45 mL/min Normal 70-79 yrs >39 mL/min Normal 80 and above >32 mL/min Normal 7 LIPID PANEL 8 CVE RISK CHOL/HDL LDL/HDL MEN: 1/2 AVERAGE 3.43 1.00 AVERAGE 4.97 3.55 2X AVERAGE 9.55 6.25 3X AVERAGE 23.99 7.99 WOMEN: 1/2 AVERAGE 3.27 1.47 AVERAGE 4.44 3.22 2X AVERAGE 7.05 5.03 3X AVERAGE 11.04 6.14 9 URINALYSIS 10 _CULTURE URINE_ ^$703820 ^^318706 $$023429 ^^274436 $$800156 $$146056 $$831876 $$707195 $$900863 $$069671 $$827619 $$458212 $$844854 $$036052 $$056366 $$123816 $$014110 $$521146 $$214968 $$202288 $$224629 $$994162 $$860388 $$206920 $$306875 $$227351 $$875525 ^^113388 $$022840 $$482960 $$474131 -- Continued on next page -- Patient: PRICILA SON J Order: [id number] [place] 2 Culture: CULTURE URINE Status: Final -- Continued on next page -- Patient: PRICILA SON J Order: [place] 2 Culture: CULTURE URINE Status: Prelim $$[id number] $$[id number] REPORTED DATE/TIME: 11/26/2020 14:06 Culture: CULTURE URINE Status: Final Urine Culture,Comprehensive: P1 No growth in 36 - 48 hours. Previous result entered on 11/23/2020 09:53 ET No growth after 18-24 hours. P1 Test performed by: [facility] Christy CORTEZ #: [id number] [address] [place] [address] Avenue [id number] [facility] [address] Isobutylene Operator Chief : Aguilar Schwartz MD NPI #: Chief Communications Officer : 11/23/20.1042.XMT.SENT REF 11/27/20.XMT.SENT REF 11/27/20.DW .to MARQUES LENNON via fax Procedures Date Code Description Status 03/21/2021 76128 Office/Outpatient Established Mo d MDM 30-39 Min Completed 03/21/2021 51801 Injection (SC)/(Im) Completed 11/22/2020 86617 Removal Impacted Cerumen Irrigat ion/Lavage Unilateral Completed 11/20/2020 56083 Office/Outpatient Established Mo d MDM 30-39 Min Completed Medical Devices Description No Information Available Encounters Type Date Location Provider Dx Diagnosis Office Visit 03/21/2021 9:15a [place] [facility] Llui Davis, FAAFP E78.5 Hyperlipidemia, unspecified I10 Essential (primary) hyperten brit K76.0 Fatty (change of) liver, not elsewhere classified K21.9 Gastro-esophageal reflux dis ease without esophagitis Z95.2 Presence of prosthetic heart valve D50.9 Iron deficiency anemia, unsp ecified Office Visit 11/20/2020 2:00p [place] [facility] Luli Davis, FAAFP E78.5 Hyperlipidemia, unspecified [...] prosthetic heart jodi ve Bryant Mohan D.O., FAAFP 03/21/2021 D50.9 Iron deficiency anemia, unspecif ied [facility] D.O., [facility] 11/22/2020 H61.22 Impacted cerumen, left ear Lyndon Mohan D.O., FAAFP 11/22/2020 H61.21 Impacted cerumen, right ear Adrian Mohan D.O., [facility] 11/20/2020 E78.5 Hyperlipidemia, unspecified Adrian [facility]an D.O., [facility] 11/20/2020 I10 Essential (primary) hypertension Bryant Mohan D.O., [facility] 11/20/2020 K76.0 Fatty (change of) liver, not els ewhere classified Bryant Mohan D.O., [facility] 11/20/2020 K21.9 Gastro-esophageal reflux disease without esophagitis Bryant Mohan D.O., [facility] 11/20/2020 F79 Unspecified intellectual disabil ities Bryant Mohan D.O., [facility] 11/20/2020 Z95.2 Presence of prosthetic heart jodi ve Bryant Mohan D.O., [facility] 11/20/2020 H61.22 Impacted cerumen, left ear Lyndon Mohan D.O., [facility] 11/20/2020 H61.21 Impacted cerumen, right ear Adrian Mohan D.O., FAAFP Plan of Treatment Future Appointment(s):* 06/24/2021 10:00 am - Bryant Mohan D.O., FAAFP at [facility] Functional Status Description No Information Available Mental Status Description No Information Available Referrals Refer to Reason for Referral Status Appt Date [facility] PLEASE EVAL COMPLAINTS OF SOB AND OCCAS IONAL WHEEZING Closed 03/12/[address] [place] [address] [phone]
--- OUTSIDE RECORDS SUMMARY | 2021-05-05 12:38 | CCD | Continuity of Care Document ---
Author Author German MOHAN D.O. Organization Unknown Address [address] [place] [address] Phone [phone] Care Team Providers Care Observation Nurse Name Role Phone Brennan Dela Cruz M.D. AUTM [phone] Bryant Mohan D.O. AUTM [phone] Problems Active Problems Provider Date Mental retardation Elias Torres M.D. Onset: 04/12/2007 Obstructive hydrocephalus Bryant Mohan D.O., [facility] Onset : 05/18/2007 Allergic rhinitis Elias Torres M.D. Onset: 07/26/2007 Heart valve replacement Elias Torres M.D. Onset: 008 Note: bovine Gastroesophageal reflux disease Bryant Mohan D.O., JASMYNEFP Onset: 05/30/2009 Hyperlipidemia Bryant oMhan D.O., FAAFP Onset: 09/28 Chronic nonalcoholic liver [...] Hours as Needed 6.7units [facility]., [facility] 11/05/[address] 1 by mouth every day (recommended by oncology) 60caps Bryant hanna D.O., FAAFP 08/14/2020 Pulmicort 0.5mg/2ML Suspension one by neb twice a day please call 60ml Bryant Mohan D.O., F AA 04/29/2020 Hydrocortisone 2.5% Cream apply externally two times a day to back x 10 dys 60gm Bryant Cherry , D.Charlene, [facility] 10/30/2019 Debrox 6.5% Solution 4 drops [...] Directed If Needed 300units [facility] D.O., [facility] 04/15/2009 Loratadine 10mg Tablets Take 1 Tablet By Mouth Every Day 90tabs Bryant Mohan D.O., FAAFP Fish Oil Extra Strength 1200mg Capsules Unknown Moderna Covid-19 Vaccine 100mcg/0.5ML Suspension pt recieved both Unknown Aspirin 325mg Tablets 1 by mouth every day Per Phone Circuit Operator For Aortic Valve Replacement U nknown History Medications Aspirin 325mg Tablets take 1 tablet by mouth once daily [facility] D.O., [facility] - 11/29/2020 Medications Administered in Office Medication SIG Qnty Indications Ordering Provider Date Injection (SC)/(Im) Injection Bryant Mohan D.O., [facility] 04/10/2014 Injection (SC)/(Im) Injection Bryant Mohan D.O., FAAFP 05/30/2013 Injection (SC)/(Im) Injection Bryant Mohan D.O., FAAFP 07/27/2012 Injection (SC)/(Im) Injection Bryant Mohan D.O., FAAFP 04/04/2012 Injection (SC)/(Im) Injection Bryant Mohan D.O., FAAFP 05/18/2011 Injection (SC)/(Im) Injection Bryant Mohan D.O., FAAFP 03/03/2011 Injection (SC)/(Im) Injection Bryant Mohan D.O., FAAFP 06/24/2010 Immunizations CPT Code Status Date Vaccine Lot # [id number] Given 03/21/2021 Influenza Virus Vaccine, Quadrivalent, Slit Virus, Im Use 3Y & Up [id number] 28915 Given 04/29/2020 Influenza Virus Vaccine, Quadrivalent, Slit Virus, Im Use 3Y & Up [id number] 34082 Given 06/16/2019 Influenza Virus Vaccine, Quadrivalent, Slit Virus, Im Use 3Y & Up [id number] 14835 Given 05/13/2018 Influenza Virus Vaccine, Quadrivalent, Slit Virus, Im Use 3Y & Up [id number] 58489 Given 04/20/2017 Influenza Virus Vaccine, Quadrivalent, Slit Virus, Im Use 3Y & Up [id number] 65020 Given 05/13/2016 Influenza Virus Vaccine, Quadrivalent, Slit Virus, Im Use 3Y & Up [id number] 64278 Given 08/28/2015 Influenza Virus Vac. Split Virus Individuals 3 Years And Above 11709 Given 04/10/2014 Influenza Virus Vac. Split Virus Individuals 3 Years And Above [id number] 19082 Given 01/10/2014 Tdap Tetanus,Dip htheria Toxoids/Acellular Pertussis 7Yrs Or Older [id number] 27632 Given 05/30/2013 Influenza Virus Vac. Split Virus Individuals 3 Years And Above [id number] 94563 Given 07/27/2012 PPD Tuberculosis Intradermal 37191 Given 04/04/2012 Influenza Virus Vac. Split Virus Individuals 3 Years And Above [id number] 63989 Given 05/18/2011 Influenza Virus Vac. Split Virus Individuals 3 Years And Above [id number] 59713 Given 03/03/2011 Pneumococcal Immunization 06 14 09141 Given 06/24/2010 Influenza Virus Vac. Split Virus Individuals 3 Years And Above [id number] 86274 Given 05/30/2009 Influenza Virus Vac. Split Virus Individuals 3 Years And Above [id number] 17360 Given 02/06/2004 PPD Tuberculosis Intradermal Vital Signs Date Vital Result Comment 03/21/2021 9:32am BP Systolic 130 mmHg BP Diastolic 70 mmHg Body Temperature 97.2 F Heart Rate 71 /min Respiratory Rate 18 /min Height 64.25 inches 5'4.25" Weight 186.00 lb [place] Body Weight 130 lb BMI (Body Mass Index) 31.7 kg/m2 O2 % BldC Oximetry 96 % 11/20/2020 1:41pm BP Systolic 130 mmHg BP Diastolic 72 mmHg Body Temperature 98.0 F Heart Rate 71 /min Height 64.25 inches 5'4.25" Weight 182.00 lb [place] Body Weight 130 lb BMI (Body Mass [...] IU/L High 0-44 CBC W/Automated Diff 11/20/2020 [place] [address] [phone] CBC W/Automated Diff (SEE NOTE) 3, 4 [...] Lymph 22.9 % Low 25.0 - 40.0 [place] 7.2 % 3.0 - 8.0 Eos 7.5 % High 0.0 - 7.0 Baso 1.2 % 0.0 - 2.0 %Ig 0.3 % High 0.0 - 0.0 %NRBC 0.0 % 0.0 - 0.0 #Neut 3.65 10^3/uL 2.00 - 6.90 #Lymph 1.37 10^3/uL 0.60 - 3.40 #[place] 0.43 10^3/uL 0.00 - 0.90 #Eos 0.45 10^3/uL 0.00 - 0.70 #Baso 0.07 10^3/uL 0.00 - 0.20 #Ig 0.02 10^3/uL 0.00 - 0.10 #NRBC 0.00 10^3/uL 0.00 - 0.00 Manual Diff NOT INDICATED RBC Morph NOT INDICATED Comprehensive Metabolic Panel 11/20/2020 [place] [address] [phone] Comprehensive Metabo (SEE NOTE) 5 Sodium 140 [...] GFR >60 mL/min 6 Cve Panel 11/20/2020 [place], [place] 10[address] [phone] Cve Panel (SEE NOTE) 7 Cholesterol 226 mg/dL High 131 - 200 Triglycerides 146 mg/dL 35 - 160 HDL 71 mg/dL 29 - 86 LDL 143 mg/dL 65 - 175 Risk Factor 3.2 Low 3.4 - 4.9 LDL/HDL 2.01 1.00 - 3.55 8 Urinalysis 11/20/2020 [place] [address] [phone] Urinalysis (SEE NOTE) 9 Source Random Void Color yellow Normal: Yellow Clarity clear Normal: Clear Spec [place] 1.020 1.001 - 1.030 pH 5 5 [...] Normal: None Seen Laboratory test finding 11/20/2020 [place] [address] [phone] CPK 118 U/L 30 - 170 Culture Urine 11/20/2020 [place] [address] [phone] Culture Urine (SEE NOTE) 10 Laboratory test finding 11/20/2020 [place] [address] [phone] Ferritin Kristina 14.5 ng/mL 5.0 - 244 Iron Binding Capacity 11/20/2020 [place] [address] [phone] Iron 28 g/dL Low 42 - 135 [...] 11.04 6.14 9 URINALYSIS 10 _CULTURE URINE_ ^$222331 ^^428215 $$238592 ^^606602 $$974287 $$254127 $$180919 $$113035 $$656143 $$053363 $$094080 $$316028 $$653636 $$998979 $$812296 $$555873 $$929894 $$271811 $$239447 $$958307 $$789539 $$273550 $$755784 $$553741 $$701315 $$336333 $$509580 ^^347885 $$252004 $$776673 $$743542 -- Continued on next page -- Patient: PRICILA SON J Order: [id number] [place] 2 Culture: CULTURE URINE Status: Final -- Continued on next page -- Patient: PRICILA SON J Order: [id number] [place] 2 Culture: CULTURE URINE Status: Prelim $$[id number] $$[id number] REPORTED DATE/TIME: 11/26/2020 14:06 Culture: CULTURE URINE Status: Final Urine Culture,Comprehensive: P1 No growth in 36 - 48 hours. Previous result entered on 11/23/2020 09:53 ET No growth after 18-24 hours. P1 Test performed by: [facility] Christy CORTEZ #: [id number] [address] [place] [address] [id number] [facility] [address] Marketing Analytics Lead : Aguilar Schwartz MD NPI #: General Labor : 11/23/20.1042.XMT.SENT REF 06.XMT.SENT REF 11/27/20.DW .to MARQUES LENNON via fax Procedures Date Code Description Status 03/21/2021 83357 Office/Outpatient Established Mo d MDM 30-39 Min Completed 11/22/2020 48093 Removal Impacted Cerumen Irrigat ion/Lavage Unilateral Completed 11/20/2020 31217 Office/Outpatient Established Mo d MDM 30-39 Min Completed Medical Devices Description No Information Available Encounters Type Date Location Provider Dx Diagnosis Office Visit 03/21/2021 9:15a [place] [facility] Luli Davis, FAAFP E78.5 Hyperlipidemia, unspecified I10 Essential (primary) hyperten brit K76.0 Fatty (change of) liver, not elsewhere classified K21.9 Gastro-esophageal reflux dis ease without esophagitis Z95.2 Presence of prosthetic heart valve D50.9 Iron deficiency anemia, unsp ecified Z23 Encounter for immunization Office Visit 11/20/2020 2:00p [place] [facility] Luli Davis, FAAFP E78.5 Hyperlipidemia, unspecified [...] deficiency anemia, unspecif ied Bryant Mohan D.O., [facility] 03/21/2021 Z23 Encounter for immunization Lyndon Mohan D.O., [facility] 11/22/2020 H61.22 Impacted cerumen, left ear Lyndon Mohan D.O., [facility] 11/22/2020 H61.21 Impacted cerumen, right ear Adrian Mohan D.O., [facility] 11/20/2020 E78.5 Hyperlipidemia, unspecified Adrian Mohan D.O., [facility] 11/20/2020 I10 Essential (primary) hypertension Bryant Mohan D.O., [facility] 11/20/2020 K76.0 Fatty (change of) liver, not els ewhere classified Bryant Mohan D.O., [facility] 11/20/2020 K21.9 Gastro-esophageal reflux disease without esophagitis Bryant Mohan D.O., [facility] 11/20/2020 F79 Unspecified intellectual disabil ities Bryant Mohan D.O., [facility] 11/20/2020 Z95.2 Presence of prosthetic heart jodi ve Bryant Mohan D.O., [facility] 11/20/2020 H61.22 Impacted cerumen, left ear Lyndon Mohan D.O., [facility] 11/20/2020 H61.21 Impacted cerumen, right ear Adrian Mohan D.O., FAAFP Plan of Treatment Future Appointment(s):* 06/24/2021 10:00 am - Bryant Mohan D.O., FAAFP at [facility] Functional Status Description No Information Available Mental Status Description No Information Available Referrals Refer to Reason for Referral Status Appt Date [facility] PLEASE EVAL COMPLAINTS OF SOB AND OCCAS IONAL WHEEZING Closed 03/12/[address] [place] [address] [phone]
--- OUTSIDE RECORDS SUMMARY | 2021-05-05 12:39 | CCD | Continuity of Care Document ---
Author Author German LEHMAN DPM-PC Organization Unknown Address [address] [place] [address] Phone [phone] Care Team Providers Care Outpatient Pharmacy Manager Name Role Phone Bryant Meraz DO AUTM [...] Available Procedures Date Code Description Status 02/04/2021 83418 Office/Outpatient Established Lo w MDM 20-29 Min Completed 02/04/2021 55167 Avulsion Nail Plate Simple Singl e Completed 01/21/2021 25903 Office/Outpatient Established SF MDM 10-19 Min Completed 12/26/2020 42394 Trim Nondystrophic Nails Complet ed 10/17/2020 78679 Trim Nondystrophic Nails Complet ed 08/08/2020 10858 Trim Nondystrophic Nails Complet ed Medical Devices Description No Information Available Encounters Type Date Location Provider Dx Diagnosis Office Visit 02/04/2021 1:15p [facility] Pod[facility] [place] L6 0.0 Ingrowing nail [...] 03/06/2021 11:00 am - [facility] at [facility] Podiatry 02/04/2021 - [place] [place]* L60.0 Ingrowing [...]
--- OUTSIDE RECORDS SUMMARY | 2021-05-05 12:39 | CCD | Continuity of Care Document ---
Author Author German LEHMAN DPM-PC Organization Unknown Address [address] [place] [address] Phone [phone] Care Team Providers Care Metal Fabricating Shop Helper Name Role Phone Bryant Meraz DO AUTM [...] Available Procedures Date Code Description Status 02/04/2021 05887 Office/Outpatient Established Lo w MDM 20-29 Min Completed 02/04/2021 24532 Avulsion Nail Plate Simple Singl e Completed 01/21/2021 02686 Office/Outpatient Established SF MDM 10-19 Min Completed 12/26/2020 48704 Trim Nondystrophic Nails Complet ed 10/17/2020 97222 Trim Nondystrophic Nails Complet ed 08/08/2020 25240 Trim Nondystrophic Nails Complet ed Medical Devices Description No Information Available Encounters Type Date Location Provider Dx Diagnosis Office Visit 02/04/2021 1:15p [facility] Podiatry [place] L6 0.0 Ingrowing [...] 03/06/2021 11:00 am - [facility] at [facility] Podiatry 02/04/2021 - [place] [place]* L60.0 [...]
--- OUTSIDE RECORDS SUMMARY | 2021-05-05 12:42 | CCD ---
Author Author [facility] Organization [facility] Address Unknown Phone Unavailable Care Team Providers Care Consulting Software Engineer Name Role Phone Elvira Lee Unavailable Unavailable Symenow, Elvira German PA Unavailable Unavailable Symenow, Elvira German PA Unavailable Unavailable Symenow, Elvira German PA Unavailable Unavailable Symenow, Elvira German PA Unavailable Unavailable Symenow, Elvira German PA Unavailable Unavailable Symenow, Elvira German PA Unavailable Unavailable Symenow, Elvira German PA Unavailable Unavailable Symenow, Elvira German PA Unavailable Unavailable BelénenoElivra spann PA Unavailable Unavailable SymenoElvira spann PA Unavailable Unavailable Symenow, Elvira German PA Unavailable Unavailable Symenow, Elvira German PA Unavailable Unavailable Symenow, Elvira German PA Unavailable Unavailable Symenow, Elvira German PA Unavailable Unavailable Symenow, Elvira Monserrat PA Unavailable Unavailable Symenow, Elvira German PA Unavailable Unavailable Symenow, Elvira German PA Unavailable Unavailable Symenow, Elvira Monserrat PA Unavailable Unavailable Symenow, Elvira German PA Unavailable Unavailable Symenow, Elvira Monserrat PA Unavailable Unavailable Symenow, Elvira German PA Unavailable Unavailable Symenow, Elvira Monserrat PA Unavailable Unavailable Symenow, Elvira Monserrat PA Unavailable Unavailable Symenow, Elvira Monserrat PA Unavailable Unavailable Symenow, Elvira Monserrat PA Unavailable Unavailable Symenow, Elvira Monserrat PA Unavailable Unavailable Symenow, Elvira Monserrat PA Unavailable Unavailable Symenow, Elvira Monserrat PA Unavailable Unavailable Symenow, Elvira Monserrat PA Unavailable Unavailable Symenow, Elvira Monserrat PA Unavailable Unavailable Symenow, Elvira Monserrat PA Unavailable Unavailable Symenow, Elvira Monserrat PA Unavailable Unavailable Symenow, Elvira Monserrat PA Unavailable Unavailable Kennedi BARBOSA MD Unavailable Unavailable Kennedi BARBOSA MD Unavailable Unavailable Kennedi BARBOSA MD Unavailable Unavailable Kennedi BARBOSA MD Unavailable Unavailable Kennedi BARBOSA MD Unavailable Unavailable Kennedi BARBOSA MD Unavailable Unavailable Kennedi BARBOSA MD Unavailable Unavailable Kennedi BARBOSA MD Unavailable Unavailable Kennedi BARBOSA MD Unavailable Unavailable Kennedi BARBOSA MD Unavailable Unavailable Kennedi BARBOSA MD Unavailable Unavailable Kennedi BARBOSA MD Unavailable Unavailable Kennedi BARBOSA MD Unavailable Unavailable Kennedi BARBOSA MD Unavailable Unavailable Kennedi BARBOSA MD Unavailable Unavailable Kennedi BARBOSA MD Unavailable Unavailable Kennedi BARBOSA MD Unavailable Unavailable Kennedi BARBOSA MD Unavailable Unavailable Kennedi BARBOSA MD Unavailable Unavailable Kennedi BARBOSA MD Unavailable Unavailable Kennedi BARBOSA MD Unavailable Unavailable Kennedi BARBOSA MD Unavailable Unavailable Kennedi BARBOSA MD Unavailable Unavailable Kennedi BARBOSA MD Unavailable Unavailable Kennedi BARBOSA MD Unavailable Unavailable Kennedi BARBOSA MD Unavailable Unavailable Kennedi BARBOSA MD Unavailable Unavailable Kennedi BARBOSA MD Unavailable Unavailable Kennedi BARBOSA MD Unavailable Unavailable Kennedi BARBOSA MD Unavailable Unavailable Kennedi BARBOSA MD Unavailable Unavailable Kennedi BARBOSA MD Unavailable Unavailable Kennedi BARBOSA MD Unavailable Unavailable Kennedi BARBOSA MD Unavailable Unavailable Kennedi BARBOSA MD Unavailable Unavailable Kennedi BARBOSA MD Unavailable Unavailable Kennedi BARBOSA MD Unavailable Unavailable Kennedi BARBOSA MD Unavailable Unavailable Kennedi BARBOSA MD Unavailable Unavailable Kennedi BARBOSA MD Unavailable Unavailable Kennedi BARBOSA MD Unavailable Unavailable Kennedi BARBOSA MD Unavailable Unavailable Kennedi BARBOSA MD Unavailable Unavailable Kennedi BARBOSA MD Unavailable Unavailable Kennedi BARBOSA MD Unavailable Unavailable Kennedi BARBOSA MD Unavailable Unavailable Kennedi BARBOSA MD Unavailable Unavailable Kennedi BARBOSA MD Unavailable Unavailable Kennedi BARBOSA MD Unavailable Unavailable Kennedi BARBOSA MD Unavailable Unavailable Kennedi BARBOSA MD Unavailable Unavailable Kennedi BARBOSA MD Unavailable Unavailable Kennedi BARBOSA MD Unavailable Unavailable Kennedi BARBOSA MD Unavailable Unavailable Kennedi BARBOSA MD Unavailable Unavailable Kennedi BARBOSA MD Unavailable Unavailable Kennedi BARBOSA MD Unavailable Unavailable Kennedi BARBOSA MD Unavailable Unavailable Kennedi BARBOSA MD Unavailable Unavailable Kennedi BARBOSA MD Unavailable Unavailable Kennedi BARBOSA MD Unavailable Unavailable Kennedi BARBOSA MD Unavailable Unavailable Kennedi BARBOSA MD Unavailable Unavailable Kennedi BARBOSA MD Unavailable Unavailable Kennedi BARBOSA MD Unavailable Unavailable Kennedi BARBOSA MD Unavailable Unavailable Kennedi BARBOSA MD Unavailable Unavailable Kennedi BARBOSA MD Unavailable Unavailable Kennedi BARBOSA MD Unavailable Unavailable Kennedi BARBOSA MD Unavailable Unavailable Kennedi BARBOSA MD Unavailable Unavailable Kennedi BARBOSA MD Unavailable Unavailable Kennedi BARBOSA MD Unavailable Unavailable Kennedi BARBOSA MD Unavailable Unavailable Kennedi BARBOSA MD Unavailable Unavailable Kennedi BARBOSA MD Unavailable Unavailable Vanessa Linares Unavailable Unavailable ANTECOL, Kennedi MUNOZ MD Unavailable Unavailable ANTECOL, Kennedi MUNOZ MD Unavailable Unavailable ANTECOL, Kennedi MUNOZ MD Unavailable Unavailable ANTECOL, Kennedi MUNOZ MD Unavailable Unavailable ANTECOL, Kennedi MUNOZ MD Unavailable Unavailable ANTECOL, Kennedi MUNOZ MD Unavailable Unavailable ANTECOL, Kennedi MUNOZ MD Unavailable Unavailable ANTECOL, Kennedi MUNOZ MD Unavailable Unavailable ANTECOL, Kennedi MUNOZ MD Unavailable Unavailable ANTECOL, Kennedi MUNOZ MD Unavailable Unavailable ANTECOL, Kennedi MUNOZ MD Unavailable Unavailable ANTECOL, Kennedi MUNOZ MD Unavailable Unavailable ANTECOL, Kennedi MUNOZ MD Unavailable Unavailable ANTECOL, Kennedi MUNOZ MD Unavailable Unavailable ANTECOL, Kennedi MUNOZ MD Unavailable Unavailable ANTECOL, Kennedi MUNOZ MD Unavailable Unavailable ANTECOL, Kennedi MUNOZ MD Unavailable Unavailable ANTECOL, Kennedi MUNOZ MD Unavailable Unavailable ANTECOL, Kennedi MUNOZ MD Unavailable Unavailable ANTECOL, Kennedi MUNOZ MD Unavailable Unavailable ANTECOL, Kennedi MUNOZ MD Unavailable Unavailable ANTECOL, Kennedi MUNOZ MD Unavailable Unavailable ANTECOL, Kennedi MUNOZ MD Unavailable Unavailable ANTECOL, Kennedi MUNOZ MD Unavailable Unavailable ANTECOL, Kennedi MUNOZ MD Unavailable Unavailable ANTECOL, Kennedi MUNOZ MD Unavailable Unavailable ANTECOL, Kennedi MUNOZ MD Unavailable Unavailable ANTECOL, Kennedi MUNOZ MD Unavailable Unavailable ANTECOL, Kennedi MUNOZ MD Unavailable Unavailable ANTECOL, Kennedi MUNOZ MD Unavailable Unavailable ANTECOL, Kennedi MUNOZ MD Unavailable Unavailable ANTECOL, Kennedi MUNOZ MD Unavailable Unavailable ANTECOL, Kennedi MUONZ MD Unavailable Unavailable ANTECOL, Kennedi MUNOZ MD Unavailable Unavailable ANTECOL, Kennedi MUNOZ MD Unavailable Unavailable ANTECOL, Kennedi MUNOZ MD Unavailable Unavailable ANTECOL, Kennedi MUNOZ MD Unavailable Unavailable ANTECOL, Kennedi MUNOZ MD Unavailable Unavailable ANTECOL, Kennedi MUNOZ MD Unavailable Unavailable ANTECOL, Kennedi MUNOZ MD Unavailable Unavailable ANTECOL, Kennedi MUNOZ MD Unavailable Unavailable ANTECOL, Kennedi MUNOZ MD Unavailable Unavailable ANTECOL, Kennedi MUNOZ MD Unavailable Unavailable ANTECOL, Kennedi MUNOZ MD Unavailable Unavailable ANTECOL, Kennedi MUNOZ MD Unavailable Unavailable ANTECOL, Kennedi MUNOZ MD Unavailable Unavailable ANTECOL, Kennedi MUNOZ MD Unavailable Unavailable ANTECOL, Kennedi MUNOZ MD Unavailable Unavailable ANTECOL, Kennedi MUNOZ MD Unavailable Unavailable ANTECOL, Kennedi MUNOZ MD Unavailable Unavailable ANTECOL, Kennedi MUNOZ MD Unavailable Unavailable ANTECOL, Kennedi MUNOZ MD Unavailable Unavailable ANTECOL, Kenneid MUNOZ MD Unavailable Unavailable ANTECOL, Kennedi MUNOZ MD Unavailable Unavailable Ban LINARES MD Unavailable Unavailable Ban LINARES MD Unavailable Unavailable Ban LINARES MD Unavailable Unavailable Ban LINARES MD Unavailable Unavailable Ban LINARES MD Unavailable Unavailable Ban LINARES MD Unavailable Unavailable Ban LINARES MD Unavailable Unavailable Ban LINARES MD Unavailable Unavailable Ban LINARES MD Unavailable Unavailable Ban LINARES MD Unavailable Unavailable Ban LINARES MD Unavailable Unavailable Ban LINARES MD Unavailable Unavailable Ban LINARES MD Unavailable Unavailable Ban LINARES MD Unavailable Unavailable Ban LINARES MD Unavailable Unavailable Ban LINARES MD Unavailable Unavailable Ban LINARES MD Unavailable Unavailable Ban LINARES MD Unavailable Unavailable Ban LINARES MD Unavailable Unavailable Ban LINARES MD Unavailable Unavailable Ban LINARES MD Unavailable Unavailable Ban LINARES MD Unavailable Unavailable Ban LINARES MD Unavailable Unavailable Ban LINARES MD Unavailable Unavailable Ban LINARES MD Unavailable Unavailable Ban LINARES MD Unavailable Unavailable Ban LINARES MD Unavailable Unavailable Ban LINARES MD Unavailable Unavailable Ban LINARES MD Unavailable Unavailable Ban LINARES MD Unavailable Unavailable Ban LINARES MD Unavailable Unavailable Ban LINARES MD Unavailable Unavailable Ban LINARES MD Unavailable Unavailable Ban LINARES MD Unavailable Unavailable Ban LINARES MD Unavailable Unavailable Ban LINARES MD Unavailable Unavailable Ban LINARES MD Unavailable Unavailable Ban LINARES MD Unavailable Unavailable Ban LINARES MD Unavailable Unavailable Ban LINARES MD Unavailable Unavailable Ban LINARES MD Unavailable Unavailable Ban LINARES MD Unavailable Unavailable Ban LINARES MD Unavailable Unavailable Ban LINARES MD Unavailable Unavailable Ban LINARES MD Unavailable Unavailable Ban LINARES MD Unavailable Unavailable Ban LINARES MD Unavailable Unavailable Ban LINARES MD Unavailable Unavailable Ban LINARES MD Unavailable Unavailable Ban LINARES MD Unavailable Unavailable Ban LINARES MD Unavailable Unavailable Ban LINARES MD Unavailable Unavailable Ban LINARES MD Unavailable Unavailable Ban LINARES MD Unavailable Unavailable Ban LINARES MD Unavailable Unavailable Ban LINARES MD Unavailable Unavailable Ban LINARES MD Unavailable Unavailable Ban LINARES MD Unavailable Unavailable Ban LINARES MD Unavailable Unavailable Ban LINARES MD Unavailable Unavailable Ban LINARES MD Unavailable Unavailable Ban LINARES MD Unavailable Unavailable Ban LINARES MD Unavailable Unavailable Ban LINARES MD Unavailable Unavailable Ban LINARES MD Unavailable Unavailable Ban LINARES MD Unavailable Unavailable Ban LINARES MD Unavailable Unavailable Ban LINARES MD Unavailable Unavailable Ban LINARES MD Unavailable Unavailable Ban LINARES MD Unavailable Unavailable Ban LINARES MD Unavailable Unavailable Ban LINARES MD Unavailable Unavailable Ban LINARES MD Unavailable Unavailable Ban LINARES MD Unavailable Unavailable Ban LINARES MD Unavailable Unavailable Ban LINARES MD Unavailable Unavailable Ban LINARES MD Unavailable Unavailable Ban LINARES MD Unavailable Unavailable Ban LINARES MD Unavailable Unavailable Ban LINARES MD Unavailable Unavailable Ban LINARES MD Unavailable Unavailable Ban LINARES MD Unavailable Unavailable Ban LINARES MD Unavailable Unavailable Ban LINARES MD Unavailable Unavailable Ban LINARES MD Unavailable Unavailable Ban LINARES MD Unavailable Unavailable Ban LINARES MD Unavailable Unavailable Ban LINARES MD Unavailable Unavailable Ban LINARES MD Unavailable Unavailable Ban LINARES MD Unavailable Unavailable Ban LINARES MD Unavailable Unavailable Ban LINARES MD Unavailable Unavailable Ban LINARES MD Unavailable Unavailable Ban LINARES MD Unavailable Unavailable Ban LINARES MD Unavailable Unavailable Ban LINARES MD Unavailable Unavailable Ban LINARES MD Unavailable Unavailable Fish, J Bryant Unavailable Unavailable Fish, J Bryant Unavailable Unavailable Fish, J Bryant Unavailable Unavailable Fish, J Bryant Unavailable Unavailable Fish, J Bryant Unavailable Unavailable Fish, J Bryant Unavailable Unavailable Fish, J Bryant Unavailable Unavailable Fish, J Bryant Unavailable Unavailable Fish, J Bryant Unavailable Unavailable Fish, J Bryant Unavailable Unavailable Fish, J Bryant Unavailable Unavailable Fish, J Bryant Unavailable Unavailable Fish, J Bryant Unavailable Unavailable Fish, J Bryant Unavailable Unavailable Fish, J Bryant Unavailable Unavailable Fish, J Bryant Unavailable Unavailable Fish, J Bryant Unavailable Unavailable Fish, J Bryant Unavailable Unavailable Fish, J Bryant Unavailable Unavailable Fish, J Bryant Unavailable Unavailable Fish, J Bryant Unavailable Unavailable Fish, J Bryant Unavailable Unavailable Fish, J Bryant Unavailable Unavailable Fish, J Bryant Unavailable Unavailable Fish, J Bryant Unavailable Unavailable Fish, J Bryant Unavailable Unavailable Fish, J Bryant Unavailable Unavailable Fish, J Bryant Unavailable Unavailable Fish, J Bryant Unavailable Unavailable Fish, J Bryant Unavailable Unavailable Fish, J Bryant Unavailable Unavailable Fish, J Bryant Unavailable Unavailable Fish, J Bryant Unavailable Unavailable Fish, J Bryant Unavailable Unavailable Fish, J Bryant Unavailable Unavailable Fish, J Bryant Unavailable Unavailable Fish, J Bryant Unavailable Unavailable Fish, J Bryant Unavailable Unavailable Fish, J Bryant Unavailable Unavailable Fish, J Bryant Unavailable Unavailable Fish, J Bryant Unavailable Unavailable Fish, J Bryant Unavailable Unavailable Fish, J Bryant Unavailable Unavailable Fish, J Bryant Unavailable Unavailable Fish, J Bryant Unavailable Unavailable Fish, J Bryant Unavailable Unavailable Fish, J Bryant Unavailable Unavailable Fish, J Bryant Unavailable Unavailable Fish, J Bryant Unavailable Unavailable Fish, J Bryant Unavailable Unavailable Fish, J Bryant Unavailable Unavailable Fish, J Bryant Unavailable Unavailable Fish, J Bryant Unavailable Unavailable Fish, J Bryant Unavailable Unavailable Fish, J Bryant Unavailable Unavailable Fish, J Bryant Unavailable Unavailable Fish, J Bryant Unavailable Unavailable Fish, J Bryant Unavailable Unavailable Fish, J Bryant Unavailable Unavailable Fish, J Bryant Unavailable Unavailable Fish, J Bryant Unavailable Unavailable Fish, J Bryant Unavailable Unavailable Fish, J Bryant Unavailable Unavailable Fish, J Bryant Unavailable Unavailable Fish, J Bryant Unavailable Unavailable Fish, J Bryant Unavailable Unavailable Fish, J Bryant Unavailable Unavailable Fish, J Bryant Unavailable Unavailable Fish, J Bryant Unavailable Unavailable Fish, J Bryant Unavailable Unavailable Fish, J Bryant Unavailable Unavailable Fish, J Bryant Unavailable Unavailable Fish, J Bryant Unavailable Unavailable Fish, J Bryant Unavailable Unavailable Fish, J Bryant Unavailable Unavailable Fish, J Bryant Unavailable Unavailable Fish, J Bryant Unavailable Unavailable Fish, J Bryant Unavailable Unavailable Fish, J Bryant Unavailable Unavailable Fish, J Bryant Unavailable Unavailable Fish, J Bryant Unavailable Unavailable Fish, J Bryant Unavailable Unavailable Fish, J Bryant Unavailable Unavailable Fish, J Bryant Unavailable Unavailable Fish, J Bryant Unavailable Unavailable FORNI, R JENNIFER DPM Unavailable Unavailable FORNI, R JENNIFER DPM Unavailable Unavailable FORNI, R JENNIFER DPM Unavailable Unavailable FORNI, R JENNIFER DPM Unavailable Unavailable FORNI, R JENNIFER DPM Unavailable Unavailable FORNI, R JENNIFER DPM Unavailable Unavailable FORNI, R JENNIFER DPM Unavailable Unavailable FORNI, R JENNIFER DPM Unavailable Unavailable FORNI, R JENNIFER DPM Unavailable Unavailable FORNI, R JENNIFER DPM Unavailable Unavailable MustizerVenice PA Unavailable Unavailable MustizerVenice PA Unavailable Unavailable MustizerVenice PA Unavailable Unavailable MustizerVenice PA Unavailable Unavailable Mustizer E Lenore PA Unavailable Unavailable Mustizer E Lenore PA Unavailable Unavailable Fish, J Bryant Unavailable Unavailable Fish, J Bryant Unavailable Unavailable Fish, J Bryant Unavailable Unavailable Fish, J Bryant Unavailable Unavailable Fish, J Bryant Unavailable Unavailable Fish, J Bryant Unavailable Unavailable Fish, J Bryant Unavailable Unavailable Fish, J Bryant Unavailable Unavailable Fish, J Bryant Unavailable Unavailable Fish, J Bryant Unavailable Unavailable Fish, J Bryant Unavailable Unavailable Fish, J Bryant Unavailable Unavailable Fish, J Bryant Unavailable Unavailable Fish, J Bryant Unavailable Unavailable Fish, J Bryant Unavailable Unavailable Fish, J Bryant Unavailable Unavailable Fish, J Bryant Unavailable Unavailable Fish, J Bryant Unavailable Unavailable Fish, J Bryant Unavailable Unavailable Fish, J Bryant Unavailable Unavailable Fish, J Bryant Unavailable Unavailable Fish, J Bryant Unavailable Unavailable Fish, J Bryant Unavailable Unavailable Fish, J Bryant Unavailable Unavailable Fish, J Bryant Unavailable Unavailable Fish, J Bryant Unavailable Unavailable Fish, J Bryant Unavailable Unavailable Fish, J Bryant Unavailable Unavailable Fish, J Bryant Unavailable Unavailable Fish, J Bryant Unavailable Unavailable Fish, J Bryant Unavailable Unavailable Fish, J Bryant Unavailable Unavailable Fish, J Bryant Unavailable Unavailable Fish, J Bryant Unavailable Unavailable Fish, J Bryant Unavailable Unavailable Fish, J Bryant Unavailable Unavailable Fish, J Bryant Unavailable Unavailable Fish, J Bryant Unavailable Unavailable Fish, J Bryant Unavailable Unavailable Fish, J Bryant Unavailable Unavailable Fish, J Bryant Unavailable Unavailable Fish, J Bryant Unavailable Unavailable Fish, J Bryant Unavailable Unavailable Fish, J Bryant Unavailable Unavailable Fish, J Bryant Unavailable Unavailable Fish, J Bryant Unavailable Unavailable Fish, J Bryant Unavailable Unavailable Fish, J Bryant Unavailable Unavailable Fish, J Bryant Unavailable Unavailable Fish, J Bryant Unavailable Unavailable Fish, J Bryant Unavailable Unavailable Fish, J Bryant Unavailable Unavailable Fish, J Bryant Unavailable Unavailable Fish, J Bryant Unavailable Unavailable Fish, J Bryant Unavailable Unavailable Fish, J Bryant Unavailable Unavailable Fish, J Bryant Unavailable Unavailable Fish, J Bryant Unavailable Unavailable Fish, J Bryant Unavailable Unavailable Fish, J Bryant Unavailable Unavailable Fish, J Bryant Unavailable Unavailable Fish, J Bryant Unavailable Unavailable Fish, J Bryant Unavailable Unavailable Fish, J Bryant Unavailable Unavailable Fish, J Bryant Unavailable Unavailable Fish, J Bryant Unavailable Unavailable Fish, J Bryant Unavailable Unavailable Fish, J Bryant Unavailable Unavailable Fish, J Bryant Unavailable Unavailable Fish, J Bryant Unavailable Unavailable Fish, J Bryant Unavailable Unavailable Fish, J Bryant Unavailable Unavailable Fish, J Bryant Unavailable Unavailable Fish, J Bryant Unavailable Unavailable Fish, J Bryant Unavailable Unavailable Fish, J Bryant Unavailable Unavailable Fish, J Bryant Unavailable Unavailable Fish, J Bryant Unavailable Unavailable Fish, J Bryant Unavailable Unavailable Fish, J Bryant Unavailable Unavailable Fish, J Bryant Unavailable Unavailable Fish, J Bryant Unavailable Unavailable Fish, J Bryant Unavailable Unavailable Fish, J Bryant Unavailable Unavailable Fish, J Bryant Unavailable Unavailable Kennedi BARBOSA MD Unavailable Unavailable Kennedi BARBOSA MD Unavailable Unavailable Kennedi BARBOSA MD Unavailable Unavailable Kennedi BARBOSA MD Unavailable Unavailable Kennedi BARBOSA MD Unavailable Unavailable Kennedi BARBOSA MD Unavailable Unavailable Kennedi BARBOSA MD Unavailable Unavailable Kennedi BARBOSA MD Unavailable Unavailable Kennedi BARBOSA MD Unavailable Unavailable Kennedi BARBOSA MD Unavailable Unavailable Kennedi BARBOSA MD Unavailable Unavailable Kennedi BARBOSA MD Unavailable Unavailable Kennedi BARBOSA MD Unavailable Unavailable Kennedi BARBOSA MD Unavailable Unavailable Kennedi BARBOSA MD Unavailable Unavailable Kennedi BARBOSA MD Unavailable Unavailable Kennedi BARBOSA MD Unavailable Unavailable Kennedi BARBOSA MD Unavailable Unavailable Kennedi BARBOSA MD Unavailable Unavailable Kennedi BARBOSA MD Unavailable Unavailable Kennedi BARBOSA MD Unavailable Unavailable Kennedi BARBOSA MD Unavailable Unavailable Kennedi BARBOSA MD Unavailable Unavailable Kennedi BARBOSA MD Unavailable Unavailable Kennedi BARBOSA MD Unavailable Unavailable Kennedi BARBOSA MD Unavailable Unavailable Kennedi BARBOSA MD Unavailable Unavailable Kennedi BARBOSA MD Unavailable Unavailable Kennedi BARBOSA MD Unavailable Unavailable Kennedi BARBOSA MD Unavailable Unavailable Kennedi BARBOSA MD Unavailable Unavailable Kennedi BARBOSA MD Unavailable Unavailable Kennedi BARBOSA MD Unavailable Unavailable Kennedi BARBOSA MD Unavailable Unavailable Kennedi BARBOSA MD Unavailable Unavailable Kennedi BARBOSA MD Unavailable Unavailable Kennedi BARBOSA MD Unavailable Unavailable Kennedi BARBOSA MD Unavailable Unavailable Kennedi BARBOSA MD Unavailable Unavailable Kennedi BARBOSA MD Unavailable Unavailable Kennedi BARBOSA MD Unavailable Unavailable Kennedi BARBOSA MD Unavailable Unavailable Kennedi BARBOSA MD Unavailable Unavailable Kennedi BARBOSA MD Unavailable Unavailable Kennedi BARBOSA MD Unavailable Unavailable Kennedi BARBOSA MD Unavailable Unavailable Kennedi BARBOSA MD Unavailable Unavailable Kennedi BARBOSA MD Unavailable Unavailable Kennedi BARBOSA MD Unavailable Unavailable Kennedi BARBOSA MD Unavailable Unavailable Kennedi BARBOSA MD Unavailable Unavailable Kennedi BARBOSA MD Unavailable Unavailable Kennedi BARBOSA MD Unavailable Unavailable Kennedi BARBOSA MD Unavailable Unavailable Kennedi BARBOSA MD Unavailable Unavailable Kennedi BARBOSA MD Unavailable Unavailable Kennedi BARBOSA MD Unavailable Unavailable Kennedi BARBOSA MD Unavailable Unavailable Kennedi BARBOSA MD Unavailable Unavailable Kennedi BARBOSA MD Unavailable Unavailable Kennedi BARBOSA MD Unavailable Unavailable Kennedi BARBOSA MD Unavailable Unavailable Kennedi BARBOSA MD Unavailable Unavailable Kennedi BARBOSA MD Unavailable Unavailable Kennedi BARBOSA MD Unavailable Unavailable Kennedi BARBOSA MD Unavailable Unavailable Kennedi BARBOSA MD Unavailable Unavailable Kennedi BARBOSA MD Unavailable Unavailable Kennedi BARBOSA MD Unavailable Unavailable Kennedi BARBOSA MD Unavailable Unavailable Kennedi BARBOSA MD Unavailable Unavailable Kennedi BARBOSA MD Unavailable Unavailable Kennedi BARBOSA MD Unavailable Unavailable Kennedi BARBOSA MD Unavailable Unavailable Kennedi BARBOSA MD Unavailable Unavailable Kennedi BARBOSA MD Unavailable Unavailable FALLON, J YONATHAN DPM PC Unavailable Unavailable FALLON, J YONATHAN DPM PC Unavailable Unavailable FALLON, J YONATHAN DPM PC Unavailable Unavailable FALLON, J YONATHAN DPM [facility] Unavailable Unavailable FALLON, J YONATHAN D[facility] Unavailable Unavailable FALLON, J YONATHAN [facility] Unavailable Unavailable FALLON, J YONATHAN [facility] Unavailable Unavailable FALLON, J YONATHAN [facility] Unavailable Unavailable FALLON, J YONATHAN [facility] Unavailable Unavailable FALLON, J YONATHAN [facility] Unavailable Unavailable FALLON, J YONATHAN [facility] Unavailable Unavailable FALLON, J YONATHAN [facility] Unavailable Unavailable FALLON, J YONATHAN [facility] Unavailable Unavailable FALLON, J YONATHAN [facility] Unavailable Unavailable FALLON, J YONATHAN [facility] Unavailable Unavailable FALLON, J YONATHAN [facility] Unavailable Unavailable FALLON, J YONATHAN [facility] Unavailable Unavailable FALLON, J YONATHAN [facility] Unavailable Unavailable FALLON, J YONATHAN [facility] Unavailable Unavailable FALLON, J YONATHAN [facility] Unavailable Unavailable FALLON, J YONATHAN [facility] Unavailable Unavailable FALLON, J YONATHAN [facility] Unavailable Unavailable FALLON, J YONATHAN [facility] Unavailable Unavailable FALLON, J YONATHAN [facility] Unavailable Unavailable FALLON, J YONATHAN [facility] Unavailable Unavailable FALLON, J YONATHAN [facility] Unavailable Unavailable FALLON, J YONATHAN [facility] Unavailable Unavailable FALLON, J YONATHAN [facility] Unavailable Unavailable FALLON, J YONATHAN [facility] Unavailable Unavailable FALLON, J YONATHAN [facility] Unavailable Unavailable FALLON, J YONATHAN [facility] Unavailable Unavailable AFLLON, J YONATHAN [facility] Unavailable Unavailable FALLON, J YONATHAN [facility] Unavailable Unavailable [facility] Unavailable Unavailable [facility] Unavailable Unavailable [facility] Unavailable Unavailable [facility] Unavailable Unavailable [facility] Unavailable Unavailable [facility] Unavailable Unavailable [facility] Unavailable Unavailable [facility] Unavailable Unavailable [facility] Unavailable Unavailable [facility] Unavailable Unavailable [facility] Unavailable Unavailable [facility] Unavailable Unavailable [facility] Unavailable Unavailable [facility] Unavailable Unavailable [facility] Unavailable Unavailable [facility] Unavailable Unavailable [facility] Unavailable Unavailable [facility], [facility] Unavailable Unavailable [facility] Unavailable Unavailable [facility] Unavailable Unavailable [facility] Unavailable Unavailable [facility] Unavailable Unavailable [facility] Unavailable Unavailable Re-disclosure Warning The records that you are about to access may contain information from federally-assisted alcohol or drug abuse programs. If such information is present, then the following federally mandated warning applies: This information has been disclosed to you from records protected by federal confidentiality rules (42 CFR part 2). The federal rules prohibit you from making any further disclosure of this information unless further disclosure is expressly permitted by the written consent of the person to whom it pertains or as otherwise permitted by 42 CFR part 2. A general authorization for the release of medical or other information is NOT sufficient for this purpose. The Federal rules restrict any use of the information to criminally investigate or prosecute any alcohol or drug abuse patient.The records that you are about to access may contain highly sensitive health information, the redisclosure of which is protected by Article 27-F of the [facility] Public Health law. If you continue you may have access to information: Regarding HIV / AIDS; Provided by facilities licensed or operated by the [facility] Office of Mental Health; or Provided by the [facility] Office for People With Developmental Disabilities. If such information is present, then the following [facility] mandated warning applies: This information has been disclosed to you from confidential records which are protected by state law. State law prohibits you from making any further disclosure of this information without the specific written consent of the person to whom it pertains, or as otherwise permitted by law. Any unauthorized further disclosure in violation of state law may result in a fine or mcfp sentence or both. A general authorization for the release of medical or other information is NOT sufficient authorization for further disc losure. Family History Family Member Name Family Member Gender Family Member Status Date o f Status Description Data Source(s) Unknown Unknown Problem [facility] ([facility] Grandfather Unknown Female Problem [facility] ([facility] Encounters Encounter Providers Location Date Indications Data Source(s ) Outpatient Attender: Lenore Flores PAConsultant: Bryant Meraz 04/27/2021 01:13:00 PM EDT - 04/27/2021 01:13:00 PM EDT [facility] Attender: Vanessa Schmidt: TAMMY Joaquin 04/07/2021 08:21:10 PM EDT [facility] Attender: Vanessa Schmidt: TAMMY Joaquin 04/07/2021 08:21:10 PM EDT [facility] Outpatient Attender: Bryant Maruqes [place] [facility] 03/21/2021 09:15:0 0 AM EDT [facility] ([facility] Outpatient Attender: YONATHAN LEHMAN DPM PCConsultant: Lyndon perez Fish 03/10/2021 10:43:00 AM EDT - 03/10/2021 10:43:00 AM EDT [facility] Outpatient Attender: YONATHAN LEHMAN DPM [facility] 02/04/2021 01:15:00 PM EDT [facility] ([facility] Outpatient Attender: YONATHAN LEHMAN DPM PCAttender: JENNIFER NEGRETE DPMConsultant: Bryant Meraz 02/04/2021 01:13:00 PM EDT - 02/04/2021 01:13:00 PM EDT [facility] Outpatient Attender: JENNIFER NEGRETE DPMConsultant: Bryant Cherry h 01/21/2021 11:16:00 AM EDT - 01/21/2021 11:16:00 AM EDT [facility] Outpatient Attender: YONATHAN LEHMAN DPM PCConsultant: Lyndon Meraz 12/26/2020 10:41:00 AM EDT - 12/26/2020 10:41:00 AM EDT [facility] Outpatient Attender: Bryant MerazReferrer: Bryant MerazConsultant: Bryant Meraz 11/20/2020 05:53:00 PM EDT - 11/20/2020 06:03:00 PM EDT [facility] Outpatient Attender: Bryant Meraz [place] [facility] 11/20/2020 02:00:0 0 PM EDT [facility] ([facility] Outpatient Attender: YONATHAN LEHMAN DPM PCConsultant: Lyndon Meraz 10/17/2020 10:48:00 AM EDT - 10/17/2020 10:48:00 AM EDT [facility] Attender: VANESSA LINARES MDReferrer: TAMMY Slade MD 10/03/2020 08:21:04 PM EDT [facility] Attender: VANESSA LINARES MDReferrer: TAMMY Slade MD 10/03/2020 08:21:04 PM EDT [facility] Attender: Bryant Meraz [place] [facility] 08/14/2020 01:00:0 0 PM EST [facility] ([facility] Outpatient Attender: YONATHAN LEHMAN DPM PCConsultant: Lyndon Meraz 08/08/2020 10:59:00 AM EST - 08/08/2020 10:59:00 AM EST [facility] Attender: VANESSA LINARES MDReferrer: TAMMY Slade MD 07/09/2020 08:21:01 PM EST [facility] Attender: VANESSA LINARES MDReferrer: TAMMY Slade MD 07/09/2020 08:21:01 PM EST [facility] Attender: VANESSA LNIARES MDReferrer: TAMMY Slade MD 06/25/2020 08:20:12 PM EST [facility] Attender: VANESSA LINARES MDReferrer: TAMMY Slade MD 06/25/2020 08:20:12 PM EST [facility] Out[facility] Attender: Monserrat Lee [facility] 06/13/2020 12:00:00 PM EST [facility] ([facility]) Outpatient Attender: YONATHAN LEHMAN DPM PCConsultant: Lyndon Meraz 05/30/2020 11:17:00 AM EST - 05/30/2020 11:17:00 AM EST [facility] Attender: VANESSA LINARES MDReferrer: TAMMY Slade MD 05/14/2020 08:20:11 PM EST [facility] Attender: VANESSA LINARES MDReferrer: TAMMY Slade MD 05/14/2020 08:20:11 PM EST [facility] Out[facility] Attender: Bryant Meraz [place] [facility] 04/29/2020 12:00:0 0 PM EST [facility] ([facility] Outpatient Attender: KELTON BARBOSA MDConsultant: Bryant Saleh cyndi 04/24/2020 09:21:00 AM EDT - 04/24/2020 10:21:00 AM EDT [facility] Patient discharged. Outpatient Attender: KELTON BARBOSA MDConsultant: Bryant Saleh cyndi 04/20/2020 08:58:00 AM EDT - 04/22/2020 11:59:00 AM EDT [facility] Patient discharged. Outpatient Attender: KELTON BARBOSA MDConsultant: Bryant Saleh cyndi 04/16/2020 12:45:00 PM EDT - 04/16/2020 01:45:00 PM EDT [facility] Outpatient Attender: KELTON BARBOSA MD [facility] 10:40:00 AM EDT [facility] ([facility] Attender: VANESSA LINARES MDReferrer: TAMMY Slade MD 04/11/2020 08:20:10 PM EDT [facility] Attender: VANESSA LINARES MDReferrer: TAMMY Slade MD 04/11/2020 08:20:10 PM EDT [facility] Attender: VANESSA LINARES MDReferrer: TAMMY Slade MD 04/01/2020 08:20:10 PM EDT [facility] Attender: VANESSA LINARES MDReferrer: TAMMY Slade MD 04/01/2020 08:20:10 PM EDT [facility] Attender: VANESSA LINARES MDReferrer: TAMMY Slade MD 04/01/2020 08:20:10 PM EDT [facility] Attender: VANESSA LINARES MDReferrer: TAMMY Slade MD 04/01/2020 08:20:10 PM EDT [facility] Attender: VANESSA LINARES MDReferrer: TAMMY Slade MD 04/01/2020 08:20:10 PM EDT [facility] Attender: VANESSA LINARES MDReferrer: TAMMY Slade MD 04/01/2020 08:20:10 PM EDT [facility] Attender: YONATHAN LEHMAN DPM PCConsultant: Lyndon Meraz 03/21/2020 10:55:00 AM EDT - 03/21/2020 10:55:00 AM EDT [facility] Immunizations Vaccine Date Status Description Data Source(s) New in 2012. IIV4 03/21/2021 09:46:00 AM EDT completed [facility] ([facility] COVID-19 VACCINE Moderna 09/20/2020 12:00:00 AM EDT completed [facility] Vaccine Series Complete: YESThis Data wa s Submitted to [facility]. COVID-19 VACCINE Moderna 08/23/2020 12:00:00 AM EST completed [facility] Vaccine Series Complete: NOThis Data was Submitted to [facility]. New in 2012. IIV4 04/29/2020 01:25:00 PM EST completed [facility] ([facility] Medications Medication Brand Name Start Date Product Form Dose Route Admi nistrative Instructions Pharmacy Instructions Status Indications Reaction Description Data Source(s) Injection (SC)/(Im) 03/21/2021 12:00:00 AM EDT completed [facility] ([facility] Medication administered onsite Levofloxacin 500 MG Oral Tablet Levofloxacin 02/04/2021 12:00:00 AM E DT ORAL completed [facility] ([facility]) Sucralfate 100 MG/ML Oral Suspension [Carafate] Carafate 11/29/2020 12:00:00 AM EDT ORAL active [facility] ([facility] Aspirin 325 MG Oral Tablet Aspirin 11/29/2020 12:00:00 AM EDT ORAL completed [facility] ([facility] 60 ACTUAT Albuterol 0.09 MG/ACTUAT Metered Dose Inhaler Albu terol Sulfate HFA 11/05/2020 12:00:00 AM EDT RESPIRATORY active [facility] ([facility] Omeprazole 20 MG Delayed Release Oral Capsule Omeprazole 08/14/2020 12:00:00 AM EST ORAL active [facility] ([facility] Omeprazole 40 MG Delayed Release Oral Capsule Omeprazole 07/12/2020 12:00:00 AM EST ORAL completed [facility] ([facility] Famotidine 20 MG Oral Tablet Famotidine 06/12/2020 12:00:00 AM EST ORAL active [facility] Budesonide 0.25 MG/ML Inhalant Solution [Pulmicort] Pulmicor t 04/29/2020 12:00:00 AM EST active M EDENT ([facility] Zithromax Z-Mauro Zithromax Z-Mauro 04/29/2020 12:00:00 AM EST ORAL completed [facility] ([facility] Omeprazole 20 MG Delayed Release Oral Capsule Omeprazole 04/16/2020 12:00:00 AM EDT ORAL completed [facility] ([facility] Insurance Providers Payer name Policy type / Coverage type Policy ID Covered alliance party ID Covered alliance party's relationship to underwood Policy [place] Plan Information MEDICAID M [id number] Self [id number] Lifetime Benefit Solut Medigap Part B [id number] Family Dependent 3 [id number] Rmsco/Lifetime Selvin Solut Medigap Part B [id number] Family Dep endent Lifetime Benefit Solut Medigap Part B [id number] Family Dependent BCBS [place] PPO 302/307 [id number] FA2 [id number] POMCO [id number] FA2 [id number] BCBS [place] PPO 302/307 [id number] FA2 [id number] POMCO [id number] FA2 [id number] MEDICAID [id number] SP [id number] Pomco Medigap Part B [id number] Family Dependent [id number] [place] Medigap Part B [id number] Family Dependent [address] [facility] [id number] UNAV AILABLE [place] [id number] AV [id number] [employer] GERMAN Cevallos UNAVAILABLE 1980 UNAVA[address]ABLE [address] DOMIN[place]QUE [place] UNAVAILABLE [id number] UNAV AILABLE [address] DOMIN[place]QUE S UNAVAILABLE [id number] UNAV AILABLE Pomco [id number] POMCO [id number] FA2 [id number] POMCO U [id number] Child [id number] POMCO U [id number] Child [id number] MEDICAID M [id number] Self [id number] MEDICAID [id number] SP [id number] BCBS Excellus Ppo U/W Medigap Part B [id number] Family Dependent BCBS Excell[place] Ppo U/W Medigap Part [id number] Family Dependent BCBS Excellus Ppo U/W Medigap Part B [id number] Family Dependent [id number] BCBS [facility] Commercial [id number] Family Dependent EXCELLUS H [id number] Unkn [id number] BCBS [place] PPO 302/307 [id number] FA2 [id number] [facility] PPO POS [id number] EXCELLUS H [id number] Child [id number] EXCELLUS H [id number] Unkn [id number] [place]ID [place] [id number] AV [id number] BC/BS [place] Commercial [id number] Self MEDICAID M [id number] S [id number] EXCELLUS BCBS B [id number] C [id number] [id number] [place] Medigap Part B [id number] Family Dependent Medicaid Medigap Part B [id number] Self 1 1 MEDICAID -RECURRING [id number] 1 8 [id number] [facility] BLUE SHIELD -RECURRING [id number] [place] [id number] Medicaid Medicaid [id number] [facility] SHIELD -O/P [id number] POMCO-O/P [id number] 19 [id number] MEDICAID [id number] SP [id number] Medicaid Medicaid [id number] Self [id number] Medicaid Medicaid [id number] Self [id number] Medicaid Medicaid [id number] Self [id number] MEDICAID-O/P [id number] S MEDICAID -PHYSICIAN [place] [id number] 1 [id number] Medicaid Medicaid [id number] S elf [id number] Medicaid Medigap Part B [id number] Self Problems, Conditions, and Diagnoses Code Display Name Description Problem Type Effective Dates Data Source(s) Z1152 ENCOUNTER FOR SCREENING FOR COVID-19 ENCOUNTER F OR SCREENING FOR COVID-19 Diagnosis 04/27/2021 01:13:00 PM EDT [facility] N37303 Cellulitis of right toe Cellulitis of right toe Diagno sis 02/04/2021 01:13:00 PM EDT [facility] V22348 Pain in left foot Pain in left foot Diagnosis 02/04/2021 01:13:00 PM EDT [facility] 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 Diagnosis 02/04/2021 01:13: 00 PM EDT [facility] M2140 Flat foot [pes planus] (acquired), unspe cified foot Flat foot [pes planus] (acquired), unspecified foot Diagnosis 02/04/2021 01:13:00 PM EDT [facility] L84 Corns and callosities Corns and callosities Diagnosis [facility] Other acquired deformities of unspecifie d foot Other acquired deformities of unspecified foot Diagnosis [facility] Other hammer toe(s) (acquired), right fo ot Other hammer toe(s) (acquired), right foot Diagnosis 02/04/2021 01:13:00 PM EDT [facility] L600 Ingrowing nail Ingrowing nail Diagnosis 02/04/2021 01:13: 00 PM [facility] K219 Gastro-esophageal reflux disease without esophagitis Gastro-esophageal reflux disease without esophagitis Diagnosis 11/20/2020 05:53:00 PM ED [facility] I10 Essential (primary) hypertension Essential (primary) h ypertension Diagnosis 11/20/2020 05:53:00 PM EDT [facility] E785 Hyperlipidemia, unspecified Hyperlipidemia, unspecifie d Diagnosis 11/20/2020 05:53:00 PM [facility] K760 Fatty (change of) liver, not elsewhere c lassified Fatty (change of) liver, not elsewhere classified Diagnosis 04/24/2020 09:21:00 AM [facility] I517 Cardiomegaly Cardiomegaly Diagnosis 04/24/2020 09:21:00 A M [facility] R0602 Shortness of breath Shortness of breath Diagnosis 1 09:21:00 AM [facility] R99 Ill-defined and unknown cause of mortali ty Ill-defined and unknown cause of mortality Diagnosis 04/22/2020 11:59:00 AM [facility] Z952 Presence of prosthetic heart valve Presence of p rosthetic heart valve Diagnosis 04/16/2020 12:45:00 PM [facility] K920 Hematemesis Hematemesis Diagnosis 04/16/2020 12:45:00 PM [facility] M76.829 Tibialis tendinitis Tibialis tendinitis Problem 0 12/26/2020 12:00:00 AM EDT [facility] ([facility]) 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 ) Note: TAVR Surgeries/Procedures Procedure Description Date Indications Data Source(s) OFFICE OUTPATIENT VISIT 25 MINUTES 03/21/2021 12:00:00 AM EDT [facility] ([facility] Injection (SC)/(Im) 03/21/2021 12:00:00 AM EDT [facility] ([facility] Trim Nondystrophic Nails 03/10/2021 12:00:00 AM EDT [facility] ([facility]) Avulsion Nail Plate Simple Single 02/04/2021 12:00:00 AM EDT [facility] ([facility]) OFFICE OUTPATIENT VISIT 15 MINUTES 02/04/2021 12:00:00 AM EDT [facility] ([facility]) OFFICE OUTPATIENT VISIT 10 MINUTES 01/21/2021 12:00:00 AM EDT [facility] ([facility]) Trim Nondystrophic Nails 12/26/2020 12:00:00 AM EDT [facility] ([facility]) Removal Impacted Cerumen Irrigation/Lavage Unilateral 11/22/2020 12:00:00 AM EDT [facility] OFFICE OUTPATIENT VISIT 25 MINUTES 11/20/2020 12:00:00 AM EDT [facility] ([facility] Trim Nondystrophic Nails 10/17/2020 12:00:00 AM EDT [facility] ([facility]) Trim Nondystrophic Nails 08/08/2020 12:00:00 AM EST [facility] ([facility]) ECG ROUTINE ECG W/LEAST 12 LDS W/I&R 06/13/2020 12:00: 00 AM EST [facility] ([facility]) Trim Nondystrophic Nails 05/30/2020 12:00:00 AM EST [facility] ([facility]) Trim Nondystrophic Nails 03/21/2020 12:00:00 AM EDT [facility] ([facility]) Results ID Date Data Source [id number] 04/27/2021 01:30:00 PM EDT [facility] Name Value Range Interpretation Code Description Data Anu rce(s) Supporting Document(s) SARS coronavirus 2 RNA Not Detected [facility] [place] This lab was ordered by [facility] Edin joshua and reported by [facility]. ID Date Data Source [id number] 04/29/2021 12:09:00 PM EDT [facility] Name Value Range Interpretation Code Description Data Anu rce(s) Supporting Document(s) SARS-CoV-2, JAYESH Not Detected Not Detected [facility] This nucleic acid amplification test was developed and its performancecharacteristics determined by [employer]. Nucleic acidamplification tests include RT-PCR and TMA. This test has not beenFDA cleared or approved. This test has been authorized by FDA underan Emergency Use Authorization (EUA). This test is only authorizedfor the duration of time the declaration that circumstances existjustifying the authorization of the emergency use of in vitrodiagnostic tests for detection of SARS-CoV-2 virus and/or diagnosisof COVID-19 infection under section 564(b)(1) of the Act, 21 U.S.C.360bbb-3(b) (1), unless the authorization is terminated or revokedsooner.When diagnostic testing is negative, the possibility of a falsenegative result should be considered in the context of a patient'srecent exposures and the presence of clinical signs and symptomsconsistent with COVID- 19. An individual without symptoms of COVID-19and who is not shedding SARS-CoV-2 virus would expect to have anegative (not detected) result in this assay. SARS-CoV-2, JAYESH 2 DAY TAT Performed [facility] ID Date Data Source [id number] 04/07/2021 02:30:00 PM EDT [facility] Name Value Range Interpretation Code Description Data Anu rce(s) Supporting Document(s) Follow Up [facility] UTHVMj7oJzBVRqNjIIFbMabDZValMWeiUSNmD8Z6KEymXt1RELsrwmDwUDFqUj4+OALjPN4enc2mXDIh gMy 8zGMBbYpjaM5GzCTOnj37HMEHtMTuSQwUyPtIyHZKpMRU3QsR8UVM4WfDkJdewGF1aFKA5CEUqJIngPL KkRPMzTIZ4LGznEA3jPUgvKCtvFq5VAV6ox7BlTAJkMLDgTpwMLVdzEQdqVZKxTRYsKHNlU131qsGcTT 3TsVEhOEy7WCUjEdL2DPCuVfP8CSZtDaBvDdYgMLIg P1Pxp903ftSinpX5IN9QG9WiMKA3HEj9A5avPsEbTDTtAOQaOW4bJgX1JUPaBh6RnTxwCXQcLWEjSo9D sBn1HBB6NQDrTi3+Pj4+Xf2agtZlPvcXMRZsDW6zag30LM5EcPKiKS7PSKhnG29iVYdiUz59MIugRYPo IkSfQHs5Yu5lHpCfl7PxE4QfIDr9P0rZPpwuN4DkQM oiCA7hYAL3KMOqMm7+Qh6wMXCbBM58ZHGaDRWLI0YskzVvqsSfLQh6WZExMw9+Hw8ubtFkKflXRFOdVL 2dcy64LF3FSB2abQtdQcF1BPNjT70hsFXmB8bgJvOgZ4YngClqYUMrQM5tK4CcMTjqXLAbRT1cohLcsH 9MsFf8IPPgVk0GiWE3HEYlB89rAIPjRZSCIPWpx0Jc GU4Yj1srjjYyPMVyXH4ZZZZkW1DMQ7CuF3nyuPpjBXFtQY6BSRlayYLsUPc6FA1HuQEpHQStQ38hnA5x LJ70UAb+DpI6suLtcU1IjSrkg9DRTG7I8r8KmMbySoIjxRynOBHIKLPeeJM6mV6sLofSQpoWkuhQrKY9 FY49MBm10D301Lbke9/k9o3z63jl/4j9jaaqlkjpa7 [file] UXECVHahlgbIax03vr/r7em/senior living+eOSc8p1+mErxZ02WTJyzBi//IclSghZxU71L/YHn+cDOxPNYcfT8 [file] RHF74mTV1JnqsP2SWWWnW5BLwqYCkz/Ll3x7Z8RDKFg3hMt+Paper Sealer/QDESrf8Dpr4u2gxST7aNdR9O5PWVN NCUQ60kW1/hI93/sM5IJ9mygplMQJymf+m6tFhVghPOysIh0H8JACszAOQFhfZUG1QQWqBE9ec4o+I1K zfQzwnxc1rlrq9pWLhZLoDI5GNENu/9I4e9JVSqfUB 6YAJ5NhK1uISfRGgtUYJPWT+TpZ/akWl3nSWoCAfp1Omhukc4JsOZ2H4vrvB4w61JYLrrqupl/iWY6HI SUuBTo+AUD2PYbUXKSE3lXaw2aZXuYiMEEg/Ke/fikZWuG9O8I8/WsK3kZkCKA4/3tLnxzY9YRdBWmlU 4lovyiqtHiv4IvdjMianizhOC9cqn+6pckj9fy2rB+ [file] X7lie4HS1CoEWI/NnlWYvhl2R62mZOhrLIoLj/assembler product [file] ss6PGsZwmeOG62g7kh5QzKXURy/Sofía/YUWDMl0+PXsRMtoiZP/JwvLmhO1ZouvtTvMxruGC4MQ/m4hIm [file] 6YU+/vfW1jP4oiNjzDid/PEDRO LUIS+UkP19iKMnvfnkdtATim0EWcBn9+ncz5Zau8KUq637QllFxpszmw7ayK [file] BpBeEqQECHCZa+5798x2m2RHVaqo/dzn3Lv+eH [file] pRGY2jy8D/iJpmTDB2d2bUQL8/6da5EkYwf6AAzCxparLoKau5aTbFSu4bikhd/digging machine operator+LguOF98qr2Fie [file] Luís+na3KY0zysVDcqzB8hsB8sISBVWBgDCiZjOagCIdOht8Xc8mSI5G/napQ3Wu4f5T+/k8MVJTE9zDO2 foFpzviU+9GU3gXPbUI+OdgqHc4D8OLjZgIYakJFZf/T+GCoFb/8HnlD01eTJlPd4bDKbPp9iUd04iyC 1u+nB6iMiZN7Q4qoVs18/vClH7w5CkrezUtd6wGOCT vlZTWAJHr6sCE9JwCCKtzGqVumrUl5upbqF4a3gcveE+dvp2bWz7e/S2kL0pq2TaSCwMAm+n7DqxqOk+ Qy/irL0c02bBAJNjvqor/I/7JERQYrV8IkgkqIFp3arjI9AwXEN+d6wZ8gU6v8oG4C4nTfUF6yzOHCU2 U7Ivmn5+3dcNf7IFQxPS0qp2d+ve8OaFnjxtE3U6Lo OLKmAjhSspfRAp4JwqUUalSgkRGEVo4TcKzt4Ich5ea+dvqhuXoRW9e5+GJix/bC3cINncUziRI4AkGn 7oHOKevCf1zwd4CVI77/Omrtn/FwGmpbodAHJ35p5fYa5HQVL/e12MCng49gX9OuE7belBLH7nBqB/fp J5WOi1mDM/oe7v11AN+tYweCFh1oe6mw0B80zQV8g4 VfmIgvZGy9QkDZWsFl6pHXuSMz0CxtxvxCOW/UWgYOlAVzgDbX//sF/68RFVdupTw+7xPRk44D9ArUQZ ha2Mdj8lhKnqP4+PPqRoBFutr+Alisa+EhGl4qv1GHKcfzELEIMVlpUnUoxDtX96mb5iz1C7KCrih9pvoB [file] Q965qIXbFPyv5KBIEYn0jq+DIRECTOR OF PSYCHIATRY+ye7IkgKa1hAuNKeb5cPbKaOF+NDKeeRthp4Nr3Dtu27fOShDRLGl6G [file] Luís/+AcYhY7ftDqvJ3k3KNIm0Icop4Ku1zc9zvpFhc8knND3iSG+OvzXEHzNfIKwfEKGUbHxr/e0SsQ8+ [file] VFT0Y= ID Date Data Source [id number] 03/21/2021 09:50:00 AM EDT [facility] ([facility] Name Value Range Interpretation Code Description Data Anu rce(s) Supporting Document(s) Glucose [Mass/volume] in Serum or Plasma 94 mg/dL 65-99 [facility] ([facility] Creatinine [Mass/volume] in Serum or Plasma 0.79 mg/dL 0.76-1.27 [facility] ([facility] BUN 13 mg/dL 6-20 [facility] ([facility] eGFR If NonAfricn Am 113 mL/min/1.73 [facility] ([facility] [facility] eGFR If Africn Am 131 mL/min/1.73 [place] DENT ([facility] currently reports eGFR in comp liance with the current recommendations of the [employer] Kid[employer]. [facility] will update reporting as new guidelines are published from the NKF-ASN Task force. Urea nitrogen/Creatinine [Mass Ratio] in Serum or Plasma 16 9 -20 MEDENT ([facility] Sodium [Moles/volume] in Serum or Plasma 140 mmol/L 134-144 MED[facility] ([facility] Potassium [Moles/volume] in Serum or Plasma 4.3 mmol/L 3.5-5.2 [facility] ([facility] Chloride [Moles/volume] in Serum or Plasma 103 mmol/L 96-106 MED[facility] ([facility] Carbon dioxide, total [Moles/volume] in Serum or Plasma 26 mmol/L 20 -29 [facility] ([facility] Calcium [Mass/volume] in Serum or Plasma 9.1 mg/dL 8.7-10.2 [facility] ([facility] Protein [Mass/volume] in Serum or Plasma 7.1 g/dL 6.0-8.5 [facility] ([facility] Albumin [Mass/volume] in Serum or Plasma 3.9 g/dL 4.0-5.0 Below low normal [facility] ([facility] Albumin/Globulin [Mass Ratio] in Serum or Plasma 1.2 1.2-2.2 [facility] ([facility] Globulin [Mass/volume] in Serum by calculation 3.2 g/dL 1.5-4.5 [facility] ([facility] Bilirubin.total [Mass/volume] in Serum or Plasma 0.6 mg/dL 0.0-1.2 [facility] ([facility] Aspartate aminotransferase [Enzymatic activity/volume] in Serum or Plasma 51 IU/L 0-40 Above high normal [facility] ([facility] Alkaline phosphatase [Enzymatic activity/volume] in Serum or Plasma 215 IU/L 44-121 Above high normal [facility] ([facility] Please note reference interval change* * Alanine aminotransferase [Enzymatic activity/volume] in Seru m or Plasma 49 IU/L 0-44 Above high normal [facility] ([facility] ID Date Data Source [id number] 03/21/2021 09:50:00 AM EDT MEDENT ([facility] Name Value Range Interpretation Code Description Data Anu rce(s) Supporting Document(s) Leukocytes [#/volume] in Blood by Automated count 4.6 x10E3/uL 3.4-10 .8 [facility] ([facility] Hematocrit [Volume Fraction] of Blood by Automated count 47.1 % 3 7.5-51.0 [facility] ([facility] Erythrocytes [#/volume] in Blood by Automated count 5.83 x10E6/u L 4.14-5.80 Above high normal [facility] ([facility] ) Hemoglobin [Mass/volume] in Blood 15.8 g/dL 13.0-17.7 [facility] ([facility] Erythrocyte mean corpuscular hemoglobin concentration [Mass/volume] by Automated count 33.5 g/dL 31.5-35.7 [facility] ([facility] Erythrocyte mean corpuscular hemoglobin [Entitic mass] by Automated count 27.1 pg 26.6-33.0 [facility]ENT ([facility] Erythrocyte mean corpuscular volume [Entitic volume] by Auto mated count 81 fL 79-97 [facility] ([facility] Erythrocyte distribution width [Ratio] by Automated count 15.0 % 11.6-15.4 [facility] ([facility] Neutrophils 53 % [facility] ([facility] Platelets [#/volume] in Blood by Automated count 167 x10E3/uL 150-450 [facility] ([facility] Eosinophils/100 leukocytes in Blood by Automated count 7 % [facility] ([facility] Monocytes/100 leukocytes in Blood by Automated count 8 % [facility] ([facility] Lymphs 30 % [facility] Basophils/100 leukocytes in Blood by Automated count 2 % [facility] ([facility] Immature cells [#/volume] in Blood Laboratory test result MEDENT ([facility] Neutrophils [#/volume] in Blood by Automated count 2.4 x10E3/uL 1.4-7 .0 [facility] ([facility] Eosinophils [#/volume] in Blood by Automated count 0.3 x10E3/uL 0.0-0 .4 [facility] ([facility] Lymphocytes [#/volume] in Blood 1.4 x10E3/uL 0.7-3.1 [facility] ([facility] Monocytes [#/volume] in Blood 0.4 x10E3/uL 0.1-0.9 [facility] ([facility] Basophils [#/volume] in Blood by Automated count 0.1 x10E3/uL 0.0-0.2 [facility] ([facility] Immature granulocytes/100 leukocytes in Blood by Automated count 0 % [facility] ([facility] Immature granulocytes [#/volume] in Blood by Automated count 0.0 x10E3/uL 0.0-0.1 [facility] ([facility] Morphology [Interpretation] in Blood Narrative Laboratory test result MEDENT ([facility] Nucleated erythrocytes/100 leukocytes [Ratio] in Blood by Automated count Laboratory test result MEDENT ([facility] ID Date Data Source [id number] 11/20/2020 02:24:00 PM EDT [facility] ([facility] Name Value Range Interpretation Code Description Data Anu rce(s) Supporting Document(s) Culture Urine Laboratory test result MEDENT ([facility] {SOURCE: Random Void~NURSE COLLECTED? N Is patient fasting? N Is patient fasting? N ID Date Data Source [id number] 11/20/2020 02:24:00 PM EDT [facility] ([facility] Name Value Range Interpretation Code Description Data Anu rce(s) Supporting Document(s) Creatine kinase [Enzymatic activity/volume] in Serum or Plasma 118 U/L 30-170 [facility] ([facility] {SOURCE: Random Void~NURSE COLLECTED? N Is patient fasting? N Is patient fasting? N ID Date Data Source [id number] 11/20/2020 02:24:00 PM EDT [facility] ([facility] Name Value Range Interpretation Code Description Data Anu rce(s) Supporting Document(s) Urinalysis Laboratory test result ME DENT ([facility] {SOURCE: Random Void~NURSE COLLECTED? N Is patient fasting? N Is patient fasting? N Clarity Laboratory test result MEDENT ([facility] {SOURCE: Random Void~NURSE COLLECTED? N Is patient fasting? N Is patient fasting? N Color Laboratory test result MEDENT ([facility] {SOURCE: Random Void~NURSE COLLECTED? N Is patient fasting? N Is patient fasting? N Source Laboratory test result MEDENT ([facility] {SOURCE: Random Void~NURSE COLLECTED? N Is patient fasting? N Is patient fasting? N Spec Fillmore 1.020 1.001-1.030 MED[facility] ([facility] {SOURCE: Random Void~NURSE COLLECTED? N Is patient fasting? N Is patient fasting? N pH 5 5-9 MED[facility] ([facility] {SOURCE: Random Void~NURSE COLLECTED? N Is patient fasting? N Is patient fasting? N Bilirubin Laboratory test result [place] DENT ([facility] {SOURCE: Random Void~NURSE COLLECTED? N Is patient fasting? N Is patient fasting? N Glucose [facility] {SOURCE: Random Void~NURSE COLLECTED? N Is patient fasting? N Is patient fasting? N Ketone Laboratory test result [facility] {SOURCE: Random Void~NURSE COLLECTED? N Is patient fasting? N Is patient fasting? N Protein 100 Abnormal (applies to non-numeric res ults) [facility] ([facility] {SOURCE: Random Void~NURSE COLLECTED? N Is patient fasting? N Is patient fasting? N Nitrite Laboratory test result [facility] ([facility] {SOURCE: Random Void~NURSE COLLECTED? N Is patient fasting? N Is patient fasting? N Leuk Est 100 Abnormal (applies to non-numeric res ults) [facility] {SOURCE: Random Void~NURSE COLLECTED? N Is patient fasting? N Is patient fasting? N Urobilinogen Laboratory test result MEDENT ([facility] {SOURCE: Random Void~NURSE COLLECTED? N Is patient fasting? N Is patient fasting? N Blood Laboratory test result MED[facility] ([facility] {SOURCE: Random Void~NURSE COLLECTED? N Is patient fasting? N Is patient fasting? N WBC Laboratory test result Abnormal (applies to non -numeric results) [facility] {SOURCE: Random Void~NURSE COLLECTED? N Is patient fasting? N Is patient fasting? N RBC Laboratory test result MEDENT ([facility] {SOURCE: Random Void~NURSE COLLECTED? N Is patient fasting? N Is patient fasting? N Microscopic Laboratory test result M JUDY ([facility] {SOURCE: Random Void~NURSE COLLECTED? N Is patient fasting? N Is patient fasting? N Epithelial Laboratory test result ME ALDRIDGE ([facility] {SOURCE: Random Void~NURSE COLLECTED? N Is patient fasting? N Is patient fasting? N Bacteria Laboratory test result MED[facility] ([facility] {SOURCE: Random Void~NURSE COLLECTED? N Is patient fasting? N Is patient fasting? N Mucous Laboratory test result [facility] ([facility] {SOURCE: Random Void~NURSE COLLECTED? N Is patient fasting? N Is patient fasting? N ID Date Data Source [id number] 11/20/2020 02:24:00 PM EDT [facility] [place] Name Value Range Interpretation Code Description Data Anu rce(s) Supporting Document(s) Cve Panel Laboratory test result OLY ([facility] {SOURCE: Random Void~NURSE COLLECTED? N Is patient fasting? N Is patient fasting? N Cholesterol 226 mg/dL 131-200 Above high normal MEDENT ([facility] {SOURCE: Random Void~NURSE COLLECTED? N Is patient fasting? N Is patient fasting? N Triglycerides 146 mg/dL 35-160 [facility] {SOURCE: Random Void~NURSE COLLECTED? N Is patient fasting? N Is patient fasting? N HDL 71 mg/dL 29-86 MED[facility] ([facility] {SOURCE: Random Void~NURSE COLLECTED? N Is patient fasting? N Is patient fasting? N LDL 143 mg/dL 65-175 [facility] ([facility] {SOURCE: Random Void~NURSE COLLECTED? N Is patient fasting? N Is patient fasting? N Risk Factor 3.2 3.4-4.9 Below low normal MED[facility] ([facility] {SOURCE: Random Void~NURSE COLLECTED? N Is patient fasting? N Is patient fasting? N LDL/HDL 2.01 1.00-3.55 [facility] ([facility] {SOURCE: Random Void~NURSE COLLECTED? N Is patient fasting? N Is patient fasting? N ID Date Data Source [id number] 11/20/2020 02:24:00 PM EDT [facility] ([facility] Name Value Range Interpretation Code Description Data Anu rce(s) Supporting Document(s) Sodium 140 meq/L 134-153 [facility] ([facility] {SOURCE: Random Void~NURSE COLLECTED? N Is patient fasting? N Is patient fasting? N Comprehensive Metabo Laboratory test result MED[facility] ([facility] {SOURCE: Random Void~NURSE COLLECTED? N Is patient fasting? N Is patient fasting? N Chloride 103 meq/L 98-107 [facility] ([facility] {SOURCE: Random Void~NURSE COLLECTED? N Is patient fasting? N Is patient fasting? N Co2 28 meq/L 22-30 [facility] ([facility] {SOURCE: Random Void~NURSE COLLECTED? N Is patient fasting? N Is patient fasting? N Potassium 4.1 meq/L 3.6-5.0 MED[facility] ([facility] {SOURCE: Random Void~NURSE COLLECTED? N Is patient fasting? N Is patient fasting? N BUN 15 mg/dL 7-21 [facility] ([facility] {SOURCE: Random Void~NURSE COLLECTED? N Is patient fasting? N Is patient fasting? N Glucose 88 mg/dL 70-99 [facility] ([facility] {SOURCE: Random Void~NURSE COLLECTED? N Is patient fasting? N Is patient fasting? N Creatinine 0.8 mg/dL 0.7-1.5 [facility] ([facility] {SOURCE: Random Void~NURSE COLLECTED? N Is patient fasting? N Is patient fasting? N Total Protein 7.2 g/dL 6.3-8.2 [facility] {SOURCE: Random Void~NURSE COLLECTED? N Is patient fasting? N Is patient fasting? N BUN/Creat 19 8-27 MED[facility] ([facility] {SOURCE: Random Void~NURSE COLLECTED? N Is patient fasting? N Is patient fasting? N Albumin 4.1 g/dL 3.9-5.0 [facility] ([facility] {SOURCE: Random Void~NURSE COLLECTED? N Is patient fasting? N Is patient fasting? N Globulin 3.1 GM/DL 2.4-3.2 MED[facility] ([facility] {SOURCE: Random Void~NURSE COLLECTED? N Is patient fasting? N Is patient fasting? N Calcium 9.2 mg/dL 8.4-10.2 MED[facility] ([facility] {SOURCE: Random Void~NURSE COLLECTED? N Is patient fasting? N Is patient fasting? N A/G Ratio 1.3 0.8-2.0 MED[facility] ([facility] {SOURCE: Random Void~NURSE COLLECTED? N Is patient fasting? N Is patient fasting? N Total Bili Laboratory test result 0.2-1.3 [place] OLY ([facility] {SOURCE: Random Void~NURSE COLLECTED? N Is patient fasting? N Is patient fasting? N Sgot/Ast 44 U/L 5-40 Above high normal [facility] ([facility] {SOURCE: Random Void~NURSE COLLECTED? N Is patient fasting? N Is patient fasting? N Alkaline Phos 201 U/L 38-126 Above high normal MEDE NT ([facility] {SOURCE: Random Void~NURSE COLLECTED? N Is patient fasting? N Is patient fasting? N SGPT/Alt 51 U/L 7-56 MED[facility] ([facility] {SOURCE: Random Void~NURSE COLLECTED? N Is patient fasting? N Is patient fasting? N Age 40 yrs MEDENT ([facility] {SOURCE: Random Void~NURSE COLLECTED? N Is patient fasting? N Is patient fasting? N Anion Gap 9.0 mmol/L 8.0-16.0 MED[facility] ([facility] {SOURCE: Random Void~NURSE COLLECTED? N Is patient fasting? N Is patient fasting? N Non-Aa GFR Laboratory test result [place] OLY ([facility] {SOURCE: Random Void~NURSE COLLECTED? N Is patient fasting? N Is patient fasting? N Afr Amer GFR Laboratory test result MEDENT ([facility] {SOURCE: Random Void~NURSE COLLECTED? N Is patient fasting? N Is patient fasting? N ID Date Data Source [id number] 11/20/2020 02:24:00 PM EDT [facility] ([facility] Name Value Range Interpretation Code Description Data Anu rce(s) Supporting Document(s) CBC W/Automated Diff Laboratory test result [facility] ([facility] {SOURCE: Random Void~NURSE COLLECTED? N Is patient fasting? N Is patient fasting? N WBC 6.0 10^3/uL 4.2-11.0 [facility] ([facility] {SOURCE: Random Void~NURSE COLLECTED? N Is patient fasting? N Is patient fasting? N RBC 4.91 10^6/uL 4.50-6.30 [facility] ([facility] {SOURCE: Random Void~NURSE COLLECTED? N Is patient fasting? N Is patient fasting? N Hemoglobin 11.7 g/dL 14.0-16.0 Below low normal MEDENT ( [facility] {SOURCE: Random Void~NURSE COLLECTED? N Is patient fasting? N Is patient fasting? N Hematocrit 38.3 % 41.0-51.0 Below low normal [facility] ( [facility] {SOURCE: Random Void~NURSE COLLECTED? N Is patient fasting? N Is patient fasting? N MCH 23.8 pg 27.0-34.0 Below low normal [facility] ( [facility] {SOURCE: Random Void~NURSE COLLECTED? N Is patient fasting? N Is patient fasting? N MCV 78.0 fL 80.0-94.0 Below low normal MED[facility] ( [facility] {SOURCE: Random Void~NURSE COLLECTED? N Is patient fasting? N Is patient fasting? N MCHC 30.5 g/dL 31.0-36.0 Below low normal [facility] ( [facility] {SOURCE: Random Void~NURSE COLLECTED? N Is patient fasting? N Is patient fasting? N RDW 13.7 % 11.5-14.8 [facility] ([facility] {SOURCE: Random Void~NURSE COLLECTED? N Is patient fasting? N Is patient fasting? N MPV 10.8 fL 7.4-10.4 Above high normal [facility] ([facility] {SOURCE: Random Void~NURSE COLLECTED? N Is patient fasting? N Is patient fasting? N Platelets 258 10^3/uL 150-450 [facility] {SOURCE: Random Void~NURSE COLLECTED? N Is patient fasting? N Is patient fasting? N Neut 60.9 % 37.0-80.0 MEDENT ([facility] {SOURCE: Random Void~NURSE COLLECTED? N Is patient fasting? N Is patient fasting? N Lymph 22.9 % 25.0-40.0 Below low normal [facility] ( [facility] {SOURCE: Random Void~NURSE COLLECTED? N Is patient fasting? N Is patient fasting? N Baso 1.2 % 0.0-2.0 MED[facility] ([facility] {SOURCE: Random Void~NURSE COLLECTED? N Is patient fasting? N Is patient fasting? N Eos 7.5 % 0.0-7.0 Above high normal MEDENT ([facility] {SOURCE: Random Void~NURSE COLLECTED? N Is patient fasting? N Is patient fasting? N Stoddard 7.2 % 3.0-8.0 MED[facility] ([facility] {SOURCE: Random Void~NURSE COLLECTED? N Is patient fasting? N Is patient fasting? N %NRBC 0.0 % 0.0-0.0 MED[facility] ([facility] {SOURCE: Random Void~NURSE COLLECTED? N Is patient fasting? N Is patient fasting? N %Ig 0.3 % 0.0-0.0 Above high normal MEDENT ([facility] {SOURCE: Random Void~NURSE COLLECTED? N Is patient fasting? N Is patient fasting? N #Neut 3.65 10^3/uL 2.00-6.90 [facility] ([facility] {SOURCE: Random Void~NURSE COLLECTED? N Is patient fasting? N Is patient fasting? N #Stoddard 0.43 10^3/uL 0.00-0.90 MED[facility] ([facility] {SOURCE: Random Void~NURSE COLLECTED? N Is patient fasting? N Is patient fasting? N #Lymph 1.37 10^3/uL 0.60-3.40 [facility] ([facility] {SOURCE: Random Void~NURSE COLLECTED? N Is patient fasting? N Is patient fasting? N #Ig 0.02 10^3/uL 0.00-0.10 [facility] ([facility] {SOURCE: Random Void~NURSE COLLECTED? N Is patient fasting? N Is patient fasting? N #Baso 0.07 10^3/uL 0.00-0.20 [facility] ([facility] {SOURCE: Random Void~NURSE COLLECTED? N Is patient fasting? N Is patient fasting? N #Eos 0.45 10^3/uL 0.00-0.70 [facility] {SOURCE: Random Void~NURSE COLLECTED? N Is patient fasting? N Is patient fasting? N Manual Diff Laboratory test result M EDJANICE ([facility] {SOURCE: Random Void~NURSE COLLECTED? N Is patient fasting? N Is patient fasting? N #NRBC 0.00 10^3/uL 0.00-0.00 MED[facility] ([facility] {SOURCE: Random Void~NURSE COLLECTED? N Is patient fasting? N Is patient fasting? N RBC Morph Laboratory test result ME DENT ([facility] {SOURCE: Random Void~NURSE COLLECTED? N Is patient fasting? N Is patient fasting? N ID Date Data Source [id number] 11/27/2020 07:55:00 PM EDT [facility] Name Value Range Interpretation Code Description Data Anu rce(s) Supporting Document(s) CULTURE URINE [facility] spital _CULTURE URINE_$$[id number]$$[id number]$$[id number]$$[id number]$$[id number]$$[id number]$$[id number]$$[id number]$$[id number]$$ [id number]$$[id number]$$[id number]$$[id number]$$[id number]$$[id number]$$[id number]$$[id number]$$[id number]$$[id number]$$ [id number]$$[id number]$$[id number]$$[id number]$$[id number]$$[id number]$$[id number]$$[id number] -- Continued on next page --Patient: PRICILA Cevallos Order: Page 2Culture: CULTURE URINE Status: Final ==== -- Continued on next page --Patient: PRICILA SON J Order: Page 2Culture: CULTURE URINE Status: Prelim =====$$[id number]$$[id number] DATE/TIME: 11/26/2020 14:06Culture: CULTURE URINE Status: FinalUrine Culture,Comprehensive: P1No growth in 36 - 48 hours. Previous result entered on 11/23/2020 09:53 ET No growth after 18-24 hours.P1 [facility] COR[facility]Z #: [id number] [address] [place] [address] [id number] [facility] [id number] Director : Aguilar Schwartz MD NPI #:Broodmare Foreman : 11/23/20.1042.XMT.SENT REF 11/27/20.XMT.SENT REF 11/27/20.DW .to MARQUES LENNON via fax ID Date Data Source [id number] 11/20/2020 08:54:00 PM EDT [facility] Name Value Range Interpretation Code Description Data Anu rce(s) Supporting Document(s) CBC W/AUTOMATED DIFF [facility] COMPLETE BLOOD COUNT Leukocytes [#/volume] in Blood by Automated count 6.0 10^3/uL 4.2 - 1 1.0 [facility] Erythrocytes [#/volume] in Blood by Automated count 4.91 10^6/uL 4. 50 - 6.30 [facility] Hemoglobin [Mass/volume] in Blood 11.7 g/dL 14.0 - 16.0 L [facility] Hematocrit [Volume Fraction] of Blood by Automated count 38.3 % 4 1.0 - 51.0 L [facility] Erythrocyte mean corpuscular volume [Entitic volume] by Auto mated count 78.0 fL 80.0 - 94.0 L [facility] Erythrocyte mean corpuscular hemoglobin [Entitic mass] by Automated count 23.8 pg 27.0 - 34.0 L [facility] Erythrocyte mean corpuscular hemoglobin concentration [Mass/volume] by Automated count 30.5 g/dL 31.0 - 36.0 L [facility] Erythrocyte distribution width [Ratio] by Automated count 13.7 % 11.5 - 14.8 [facility] Platelets [#/volume] in Blood by Automated count 258 10^3/uL 150 - 45 0 [facility] Platelet mean volume [Entitic volume] in Blood by Automated count 10.8 fL 7.4 - 10.4 H [facility] Neutrophils/100 leukocytes in Blood by Automated count 60.9 % 37. 0 - 80.0 [facility] Lymphocytes/100 leukocytes in Blood by Manual count 22.9 % 25.0 - 40.0 L [facility] Monocytes/100 leukocytes in Blood by Automated count 7.2 % 3.0 - 8.0 [facility] Eosinophils/100 leukocytes in Blood by Automated count 7.5 % 0.0 - 7.0 H [facility] Basophils/100 leukocytes in Blood by Automated count 1.2 % 0.0 - 2.0 [facility] %IG 0.3 % 0.0 - 0.0 H [facility] %NRBC 0.0 % 0.0 - 0.0 [facility] al Neutrophils [#/volume] in Blood by Automated count 3.65 10^3/uL 2.00 - 6.90 [facility] Lymphocytes [#/volume] in Blood by Automated count 1.37 10^3/uL 0.60 - 3.40 [facility] Monocytes [#/volume] in Blood by Automated count 0.43 10^3/uL 0.00 - 0.90 [facility] Eosinophils [#/volume] in Blood by Automated count 0.45 10^3/uL 0.00 - 0.70 [facility] Basophils [#/volume] in Blood by Automated count 0.07 10^3/uL 0.00 - 0.20 [facility] #IG 0.02 10^3/uL 0.00 - 0.10 [facility] H [facility]spital #NRBC 0.00 10^3/uL 0.00 - 0.00 [facility] ospital MANUAL DIFF NOT INDICATED [facility] RBC MORPH NOT INDICATED [facility] spital ID Date Data Source [id number] 11/20/2020 08:42:00 PM EDT [facility] Name Value Range Interpretation Code Description Data Anu rce(s) Supporting Document(s) CVE PANEL [facility] al LIPID PANEL Cholesterol [Mass/volume] in Serum or Plasma 226 MG/DL 131 - 200 H [facility] Deprecated Triglyceride [Mass/volume] in Serum or Plasma 146 MG/DL 3 5 - 160 [facility] HDL 71 MG/DL 29 - 86 [facility] al Cholesterol in LDL [Mass/volume] in Serum or Plasma by Direc t assay 143 mg/dL 65 - 175 [facility] Cholesterol.total/Cholesterol in HDL [Mass Ratio] in Serum o r Plasma 3.2 3.4 - 4.9 L [facility] LDL/HDL 2.01 1.00 - 3.55 [place] [facility] CVE RISK CHOL/HDL LDL/HDLMEN: 1/2 AVERAGE 3.43 1.00 AVERAGE 4.97 3.55 2X AVERAGE 9.55 6.25 3X AVERAGE 23.99 7.99WOMEN: 1/2 AVERAGE 3.27 1.47 AVERAGE 4.44 3.22 2X AVERAGE 7.05 5.03 3X AVERAGE 11.04 6.14 ID Date Data Source [id number] 11/20/2020 08:42:00 PM EDT [facility] Name Value Range Interpretation Code Description Data Anu rce(s) Supporting Document(s) COMPREHENSIVE METABOLIC PANEL [facility] COMPREHENSIVE METABOLIC PANEL Sodium [Moles/volume] in Serum or Plasma 140 mEq/L 134 - 153 [facility] Potassium [Moles/volume] in Serum or Plasma 4.1 mEq/L 3.6 - 5.0 [facility] Chloride [Moles/volume] in Serum or Plasma 103 mEq/L 98 - 107 [facility] Carbon dioxide, total [Moles/volume] in Serum or Plasma 28 MEQ/L 22 - 30 [facility] Glucose [Mass/volume] in Serum or Plasma 88 MG/DL 70 - 99 [facility] BUN 15 MG/DL 7 - 21 [facility] al Creatinine [Mass/volume] in Serum or Plasma 0.8 MG/DL 0.7 - 1.5 [facility] BUN/CREAT 19 8 - 27 [facility] Protein [Mass/volume] in Serum or Plasma 7.2 G/DL 6.3 - 8.2 [facility] Albumin [Mass/volume] in Serum or Plasma 4.1 G/DL 3.9 - 5.0 [facility] Globulin [Mass/volume] in Serum by calculation 3.1 GM/DL 2.4 - 3.2 [facility] A/G RATIO 1.3 0.8 - 2.0 [facility] Calcium [Mass/volume] in Serum or Plasma 9.2 MG/DL 8.4 - 10.2 [facility] Bilirubin.total [Mass/volume] in Serum or Plasma <0.7 MG/DL 0.2 - 1.3 [facility] Alkaline phosphatase [Enzymatic activity/volume] in Serum or Plasma 201 U/L 38 - 126 H [facility] Aspartate aminotransferase [Enzymatic activity/volume] in Serum or Plasma 44 U/L 5 - 40 H [facility] Alanine aminotransferase [Enzymatic activity/volume] in Seru m or Plasma 51 U/L 7 - 56 [facility] Anion gap 3 in Serum or Plasma 9.0 mmol/L 8.0 - 16.0 [facility] 40 [facility] >60 mL/min [facility] AFR AMER GFR >60 mL/min [facility] Ho spital Male GFR In terprentation 20-49 yrs >60 mL/min Normal 50-59 yrs >56 mL/min Normal 60-69 yrs >49 mL/min Normal 70-79yrs >42 mL/min Normal 80 and above >35 mL/min Normal Female GFR Interpretation 20-39 yrs >60 mL/min Normal 40-49 yrs >58 mL/min Normal 50-59 yrs >51 mL/min Normal 60-69 yrs >45 mL/min Normal 70-79 yrs >39 mL/min Normal 80 and above >32 mL/min Normal ID Date Data Source [id number] 11/20/2020 08:38:00 PM EDT [facility] Name Value Range Interpretation Code Description Data Anu rce(s) Supporting Document(s) [facility] S[facility] Random Void [facility] ital COLOR yellow NORMAL: Yellow [facility] CLARITY clear NORMAL: Clear [facility] sp[facility] Specific gravity of Urine by Test strip 1.020 1.001 - 1.030 [facility] pH 5 5 - 9 [facility] Glucose [Mass/volume] in Urine by Test strip NORM NORMAL: Negat [facility] Bilirubin.total [Presence] in Urine by Test strip NEG NORMAL: Negative [facility] Ketones [Presence] in Urine by Test strip NEG NORMAL: Negative [facility] Protein [Mass/volume] in Urine by Test strip 100 NORMAL: Negat [facility] Nitrite [Presence] in Urine by Test strip NEG NORMAL: Negative [facility] BLOOD NEG NORMAL: Negative [facility] Leukocyte esterase [Presence] in Urine by Test strip 100 STEFF L: Negative [facility] Urobilinogen [Mass/volume] in Urine by Test strip NOR less fern n 1.0 mg/dL [facility] MICROSCOPIC See Below [facility] ital WBC 30 - 40 NORMAL: NONE SEEN [facility] Erythrocytes [#/volume] in Urine by Test strip 0 - 1 NORMAL: NON E SEEN [facility] EPITHELIAL FEW NORMAL: NONE SEEN [facility] Bacteria [Presence] in Urine sediment by Light microscopy 1+ SMALL NORMAL: NONE SEEN [facility] Mucus [Presence] in Urine sediment by Light microscopy Trace NORMAL: NONE SEEN [facility] ID Date Data Source [id number] 11/20/2020 08:29:00 PM EDT [facility] Name Value Range Interpretation Code Description Data Anu rce(s) Supporting Document(s) Creatine kinase [Enzymatic activity/volume] in Serum or Plasma 1 18 U/L 30 - 170 [facility] ID Date Data Source [id number] 11/20/2020 02:16:00 PM EDT [facility] ([facility] Name Value Range Interpretation Code Description Data Anu rce(s) Supporting Document(s) Iron 28 ug/dL 42-135 Below low normal [facility] ( [facility] Iron Sat 6 % [facility] Tibc 432 ug/dL 250-450 [facility] Uibc 404 ug/dL 112-347 Above high normal [facility] ([facility] ID Date Data Source [id number] 11/20/2020 02:16:00 PM EDT [facility] ([facility] Name Value Range Interpretation Code Description Data Anu rce(s) Supporting Document(s) Ferritin [Mass/volume] in Serum or Plasma 14.5 ng/mL 5.0-244 [facility] ([facility] ID Date Data Source [id number] 11/27/2020 10:28:00 AM EDT [facility] Name Value Range Interpretation Code Description Data Anu rce(s) Supporting Document(s) Iron [Mass/volume] in Serum or Plasma 28 UG/DL 42 - 135 L [facility] Iron binding capacity.unsaturated [Mass/volume] in Serum or Plasma 404 UG/DL 112 - 347 H [facility] Iron binding capacity [Mass/volume] in Serum or Plasma 432 ug/dL 250 - 450 [facility] Iron saturation [Mass Fraction] in Serum or Plasma 6 % [facility] ID Date Data Source [id number] 11/26/2020 04:45:00 PM EDT [facility] Name Value Range Interpretation Code Description Data Anu rce(s) Supporting Document(s) Ferritin [Mass/volume] in Serum or Plasma 14.5 ng/mL 5.0 - 244 [facility] ID Date Data Source [id number] 10/03/2020 04:45:00 PM EDT [facility] Name Value Range Interpretation Code Description Data Anu rce(s) Supporting Document(s) Follow Up [facility] VCNDLz3kNrCRHuFiGSAuSnwUBBgvWOeuDZHbQ4V0WSycQf7OZZykdmCwBDWrHo0+SFDeCT4kcx1aTXGi gMy [file] XoZQ/2YJkW3zCHi9aKvlHorijHtrahr4fzEJGkRfsXxyoC3C4o/Cloth Finishing Range Operator Chief/mjKslquc2mPnhHUY7bHwag0fqv [file] EFbgUWZWD9qzGsD2sh4hMRqhpOxhjjYpS1vW7acgT0HQ58B/XuoVVZjIFgQtra5CTDM7KLWT8Ffxa/Margarito CHwJAXCm6ieD1t+KRbHsbCvLnSCmqBQ8kOOPLhvRJN n1iG2c69rIn/EuEmbXrcb3OcJCJFw1r9fHnF0N/1jkfQmN+VV0/3e1V2vzX2i0gugKHsosOoTKX8uMLy bI5c3/ucL1xPcHxD3/g+DAOqYgg7h6CFPKGx9PrpTjzcEoN9yCsXGhcSpJuBNlIr9B/0WdWxHCk381oR C3wcjRtQp0KloYNUfVV2MM9R4toZx+boat buffer plastic+02hRpZNr [file] cEq4SOGKcW2cUnp3K2GJWQ/oZFSh/salesperson florist supplies+banEGaddhWiq6xSsGOAY/ZiZYDwQ+T1haZsuzcL23di5y9Y [file] YSq5TGmvkLriidx0UsB1pNRGlBwvOvOOkVxd4EF5pw3lFvJD+XswUcUNc1TUBaj3xqN/AW3fVB0b2/evp operations [file] YBfyXzZCcQ336+0pxnnKwy7/+M1MrEKX3gH6AmBPD/DXr9IVI0Ij4Pi4lBHr97QuVh1+Paper Sealer+8Ber3Ex2/ [file] Abdifatah/UGoGz5/RllHPp96/0pUfqVHc39irj7ZlvFtCC0g9x/97C99yCsy00euLXHIQpC/maintenance leader+UxbJy6Hd1Q [file] Lk2DivJqX/ynwEgvWtP8q9ByVpF+rzMZPjZzrMH/Naseem VThf+1UEEEm1gYEGqM9itU59AllvEZad0OTBRhNTToPFEri71YG4vO7HknZo6wQGmV7S6h7vsqi815/j 67mHn9LIjVbpRwsYt5I7R+9C53FrbeQYZBUTaChKnmP3HcguQWBOzNRZAzY6bGpCP2PjOBah4rdw9+WT BqmRBRNn2S5x/bh0sy6SrVjRVsOENlSFQlejXxQod6 OuCEPyFX/bgs3L7k5VuBuyuif5x/t/+DvbxarmV7qcCa96Rnu88x7yX1LdUBD8t67MWG4mwx+sco4D8u K5v6kZ8GIWcz+ZPh9xdfWt0fOROP9H1LK4RlcTTPEVfZcxj35L9FGftIB4y7q/8fnmlnkzQbefzl+l1A gIFOPKfQZpY014NQoftz+RB2+na0Fbe1VQTiK02mPk 88MM9AxHx73g5sTX9itlrBGQwlqD8wsEX3y+ZTzHMGaULNb4EoJ+/fU9uB07y7CBplReajt2DfaZDhKz jh12P9BTBETKP8YrTmm04ZH+j0xvfn2WgGox5MckPaeqgmQcgpS6GG75mT919t2ojBLQT95fPtvt/GtL iHCTWlPmleGB970TS5QRHmjuooQKQRUc9axddeIo9G qXsFwlW7klVb8aZsfca61ucrJjklqzfGGa7AV6el7uQ8VgkUynVhvp2Rr//w+AxSCcdFxxLpzJyUXFo1 yOvQVKTt5pjxaj0QM7VhvfM/JsgnJRI6/cxr7+L1nofJBK4yR8pwB5YxH+FfZAS4V66ejrrcfRdIJcJu MNV8Kq+0SHaijruhHuZpUfNKdGqRkGQkr9vs5wBD6F zjwhHOtnu8WB1Z9dsVPuwkcIvAeVks3o1w35NGPr5Dbb9J1+Pc2fWiMf+Jx9cCosApF9HTgWjvk5j0Vc j9/j7yVUQBfON4a1ExIghTwuniwgUpLKQ5PaXv7TSBCBZ9GI6WQk/5xYTUrK4nC3vnASj7RA+Barrera+Xqrk wE7l5Zz9WPuRH+iLO6CuwGY9ppTRQir+WKI/IbwkSE vhGZli64kHr4m4hGDb913WjMbwsG3H6fkpW0kOEvufYoX0saeHiKbr1uUFi0+X7b8qm7dgjENaNNS4ai F+cg+64w8OOp2hVe9cIR5Yo/EtHAiYN2bH0Cn8vw57HXuWdoEhNv/UsnSNiaF9F7G49dOpvhZwPKH8zI /1W/tdprQvA9p/lt+BHg4Uip2bxVAfZ8qXGtgRA/jL c8Lwe55NLRk0yhNgPvRXq8JqNgrVs42xSlF6GqgmtrmMQ3kagl2Ts79Hvu5Bxayus/rGvyjmRPPOA9tn bYsRO/MwIUuT2ft72fsR89Ji+51pKnc7kYoi8EVKITEe21548IfizqX761hErQA0sKSiaQ+Yf4vresGi 5xrJWEtzCeZc0ObxkdCYEs/kd03BdL4H6dWn4e/IGNACIO eAynhlPj93o0UkghHV+uMWLeni1rl29HUVp43Jg60tipCuV3va/8+jWLQyI3gtJAbr1YvcYUhUfr4MdS 36kajTFSUeQOEzpspV3OPDHaBgzDkxUN5cBuQPin+HBe1m3dYhIH5T/jEMwPbeyKhFudWserwxyOC0+z WZcIqMUH54dycDwJNM+gb8iwpHlpObRr7WN/qRqlfl +N01iKru4Nc1qoI/SDwkYjGFa+dxdXQbGeo+hiIqpwsUEXCo9OEz4ZH8O7Wy3CZqE3Y1zK6/QpM7wk++ RP08st+p/Dr8f8Ksx/dA/6XWGNGD/GOf5vhhCPsH3rZNctO+/9L3wKtK9qtf/cT272KKsG/LKwJQ9zPk Te-Moak+TYu14RZLyPbp5VtiNzC9utuyXetDnzT+UOdwAC [file] hqrZ+F/0JzvX0j4QVRTlDXHLcRD0PVXE97iF0F [file] S1a1KQjBIhCzGbrQpKqwJUPFnqIOIsf0Xmdyg+1u/cETaLugztg36N3/QycIJuTRf8C8r0aGmosg+client technical support associate [file] sr6InNTCD0jyRROZ5ML2bmRcIDU8qwTDG3gEPEID+OM3/Luís+/OLYiDd6WFG1lsh07PkiI+m6+6YVr+G8 [file] Ftf45yN+8WlX0pZ7om5d4q/LUÍS+QHfA4kHoHN64r9Xo [file] O/q3mr28NRAVVSll5f+08Bsbspr3QJ2RRcsw9J1QeAQVeyq4QhAv+DIRECTOR OF PSYCHIATRY/TpK2C9+MZP/Ka+V5b4eBn6yq rcJm4cpgD2G5zsA6jTLfflVyYOqf6DW6uEbVZs8tA5 UisXUWMeEMWIfffQgEw6fw/9W2bKIJ9MhpEWwvVQj5REpP7FoTNiTn74biot3kSRGcCT/gx6r9+04Si1 ntNmybqr048yM4zJNb+fwOJIzxqj3WlcF1Wt+y/P5djWSx3Yk3PMiJrS8YuoYemlB7QIZ+VxEkXep/SS 01eLzwf0PT9cV+9h9kI+bEfRi6l2bgK+Mala+zKA3Lm [file] DSzXb7MRKXdIrfi1B8uprwtmx2eVnqyU5CPFLP+java tech lead [file] Tlq6ys69To1l4AGk0Izu84OX+livery car driver+QaXQPqc6m1+Dl [file] GXhmnuHdRtaHIZtkuZLfgItlADCUGzkeCMZwYE5APEZKX3U= ID Date Data Source [id number] 09/27/2020 08:05:00 AM EDT [facility] Name Value Range Interpretation Code Description Data Anu rce(s) Supporting Document(s) Protein, Total 6.8 g/dL 6.0-8.5 [facility] Albumin 3.5 g/dL 4.0-5.0 Below low normal [facility] Bilirubin, Total 0.4 mg/dL 0.0-1.2 [facility] Bilirubin, Direct 0.26 mg/dL 0.00-0.40 [facility] Alkaline Phosphatase 197 IU/L 39-117 Above high normal [facility] AST (SGOT) 43 IU/L 0-40 Above high normal [facility] ALT (SGPT) 45 IU/L 0-44 Above high normal [facility] ID Date Data Source [id number] 08/14/2020 02:41:00 PM EST [facility] Name Value Range Interpretation Code Description Data Anu rce(s) Supporting Document(s) Written Authorization Laboratory test result [facility] Written Authorization Received. Authorization received from BRYANT MERAZ MD 08-16-2020 Logged by Юлия Lema ID Date Data Source [id number] 08/14/2020 02:41:00 PM EST [facility] Name Value Range Interpretation Code Description Data Anu rce(s) Supporting Document(s) Triglyceride [Mass/volume] in Serum or Plasma 249 mg/dL 0-149 Above high normal [facility] ([facility] Cholesterol in HDL [Mass/volume] in Serum or Plasma 58 mg/dL [facility] ([facility] Cholesterol [Mass/volume] in Serum or Plasma 221 mg/dL 100 -199 Above high normal [facility] ([facility] ) Comment: Laboratory test result [facility] ([facility] Laboratory test finding (navigational concept) 120 mg/dL 0-99 Above high normal [facility] ([facility] Laboratory test finding (navigational concept) 43 mg/dL 5-40 Above high normal [facility] ([facility] ID Date Data Source [id number] 08/14/2020 02:41:00 PM EST [facility] ([facility] Name Value Range Interpretation Code Description Data Anu rce(s) Supporting Document(s) Glucose [Mass/volume] in Serum or Plasma 83 mg/dL 65-99 [facility] ([facility] BUN 12 mg/dL 6-20 [facility] ([facility] eGFR If NonAfricn Am 116 mL/min/1.73 [facility] ([facility] Creatinine [Mass/volume] in Serum or Plasma 0.75 mg/dL 0.76 -1.27 Below low normal [facility] ([facility] ) eGFR If Africn Am 134 mL/min/1.73 [facility] ([facility] Sodium [Moles/volume] in Serum or Plasma 144 mmol/L 134-144 [facility] Potassium [Moles/volume] in Serum or Plasma 4.1 mmol/L 3.5-5.2 [facility] ([facility] Urea nitrogen/Creatinine [Mass Ratio] in Serum or Plasma 16 9 -20 [facility] ([facility] Calcium [Mass/volume] in Serum or Plasma 9.1 mg/dL 8.7-10.2 [facility] ([facility] Carbon dioxide, total [Moles/volume] in Serum or Plasma 26 mmol/L 20 -29 [facility] ([facility] Chloride [Moles/volume] in Serum or Plasma 107 mmol/L 96-106 Above high normal [facility] ([facility] Albumin [Mass/volume] in Serum or Plasma 3.9 g/dL 4.0-5.0 Below low normal [facility] ([facility] Protein [Mass/volume] in Serum or Plasma 6.9 g/dL 6.0-8.5 [facility] ([facility] Bilirubin.total [Mass/volume] in Serum or Plasma 0.5 mg/dL 0.0-1.2 [facility] ([facility] Albumin/Globulin [Mass Ratio] in Serum or Plasma 1.3 1.2-2.2 [facility] ([facility] Globulin [Mass/volume] in Serum by calculation 3.0 g/dL 1.5-4.5 [facility] ([facility] Alkaline phosphatase [Enzymatic activity/volume] in Serum or Plasma 234 IU/L 39-117 Above high normal [facility] Aspartate aminotransferase [Enzymatic activity/volume] in Serum or Plasma 45 IU/L 0-40 Above high normal [facility] ([facility] Alanine aminotransferase [Enzymatic activity/volume] in Seru m or Plasma 71 IU/L 0-44 Above high normal [facility] ([facility] ID Date Data Source [id number] 08/14/2020 02:41:00 PM EST [facility] ([facility] Name Value Range Interpretation Code Description Data Anu rce(s) Supporting Document(s) Erythrocytes [#/volume] in Blood by Automated count 5.50 x10E6/uL 4.1 4-5.80 [facility] ([facility] Leukocytes [#/volume] in Blood by Automated count 7.0 x10E3/uL 3.4-10 .8 [facility] ([facility] Hematocrit [Volume Fraction] of Blood by Automated count 43.3 % 3 7.5-51.0 [facility] ([facility] Erythrocyte mean corpuscular volume [Entitic volume] by Auto mated count 79 fL 79-97 [facility] ([facility] Hemoglobin [Mass/volume] in Blood 14.2 g/dL 13.0-17.7 [facility] ([facility] Erythrocyte mean corpuscular hemoglobin [Entitic mass] by Automated count 25.8 pg 26.6-33.0 Below low normal [facility] ([facility] Erythrocyte mean corpuscular hemoglobin concentration [Mass/volume] by Automated count 32.8 g/dL 31.5-35.7 [facility] Erythrocyte distribution width [Ratio] by Automated count 16.9 % 11.6-15.4 Above high normal [facility] ([facility] ) Platelets [#/volume] in Blood by Automated count 239 x10E3/uL 150-450 [facility] Neutrophils 57 % [facility] Eosinophils/100 leukocytes in Blood by Automated count 7 % [facility] Lymphs 25 % [facility] Monocytes/100 leukocytes in Blood by Automated count 10 % [facility] Basophils/100 leukocytes in Blood by Automated count 1 % [facility] Neutrophils [#/volume] in Blood by Automated count 4.0 x10E3/uL 1.4-7 .0 [facility] ([facility] Immature cells [#/volume] in Blood Laboratory test result [facility] Lymphocytes [#/volume] in Blood 1.7 x10E3/uL 0.7-3.1 [facility] ([facility] Monocytes [#/volume] in Blood 0.7 x10E3/uL 0.1-0.9 [facility] ([facility] Eosinophils [#/volume] in Blood by Automated count 0.5 x10E3/uL 0.0-0.4 Above high normal [facility] ([facility] ) Immature granulocytes/100 leukocytes in Blood by Automated count 0 % [facility] Basophils [#/volume] in Blood by Automated count 0.1 x10E3/uL 0.0-0.2 [facility] ([facility] Nucleated erythrocytes/100 leukocytes [Ratio] in Blood by Automated count Laboratory test result [facility] Immature granulocytes [#/volume] in Blood by Automated count 0.0 x10E3/uL 0.0-0.1 [facility] Morphology [Interpretation] in Blood Narrative Laboratory test result [facility] ([facility] ID Date Data Source [id number] 05/08/2020 10:45:00 AM EST [facility] Name Value Range Interpretation Code Description Data Anu rce(s) Supporting Document(s) EGD [facility] MZOORp9uQaFWUzBiULWnKzbNRZmiRWlaYUCkH4Z2VSzqYg4OFVxufdVzOAEdGo2+KDOvBW4iwt3sKJOu gMy 7mERXeRydrK5OcURVdc21JORCcZYnJAvZdNlQeGSCgEBT7FuL8ZSG7PjHvOonhIN7kEON0HNMpFNulAG MpFXYiASYvHIjjXr3kWUbvJOzuYp8XZE4te5CzWUBaMXLcPtvZGLtsYKynFSAuPHJfUJMwX376imHeUb 0TjJFtXIp8PUYgKlH8MBZzSqF6NCExQc1yQePmo4Tq Y0FnGQj5Y3yTSvjfD2ZlYCfuPP8dSPA8WARxAb5TcJslBOnjUHJEX9loYuRfGWAqIROAOq0+Pj4+DWVu YH8ved68AGJbp6YxITa3J6T5gYBiN0BlO7BaGBWvmPBPi7xmEdNeVPW0ZWKmYqjcSH3HBMDmxXDeDZHw IShmKL6uyjKbzDX6GN8NcQrsMGHxLGKFRy2+Pi9QYX CufuFcHeWwOFQzO11feHPkfDFtEtboOCGFNN7+ATQgBL4pkq60VWQqf2XmGSg0S2snypo9fZGrQmP5OH ImZlZzAWAcEZ3qJV2PyIW3kUJoGL6YcEEfCJ5ZtMFbJY6RG6DkRIX2S0UqgNQlzlEiJ0OaOGUvTUQat9 ByES0PV3FFJDEkXJAzY5IduG4kI1BmI3ShP5Wsurxd GMVKEy9SyGK4wQEjBXUlN4gmhUqoqFTxRFilD0JuaBULGQAVw63wa24qwjEbQY4+x5WbRTXcGNb29ov6 ZVAcX/hyQKGUHve8NAyuMSCiIpISrm9vP2fuKeZ1IFy7PihvxHH2S7nFoIBU7//ziqs7vae6vk/eD+/z 5FVQmu8+s6yv9qZd1tZz9NFZAQaxZIDRtRTMXSHK66 edjAb2DPnddUdnrQbG+ASsBWWHdWQaq4yL3C0Fw1OOnhIiTxG44+Jc1grw6fda4fWn3+Lm/VgeIC6vn4 ZHQyfGwCDmfEv+lvP/IZ33MTdbdTzabqKEPsRYOmOUN+VgV5SUHADgJvfRRJ3nELdMKbCkw9Rpg6V3YP CPDXiFAAS+QgQiISEi/u31+ugZTMMXxr3G5UEOF4rN [file] dPelnaTUQZCaHqU+BCFyuxTkG1ZKanAmp91mjD/broke beater operator [file] Paper Sealer+YS0d0tYLwiuZ7iFhK9AjZyrDOfKIG6Uq/xpp68v [file] [facility]+LxuZOYyAavk2ncZ6wUGJLBm13eoqYRTy5zJDZzI+aydZ7vYPkf1RqDZXRdWzWHOFVO5zdt6I0 [file] gICAgICAgICAgICAgICAgICAgICAgICAgICAgICAgICAgICAgICAgICAgICAgICAgICAgICAgICAgICA gICAgICAgICAgICAgICAgICAgICAgICAgICAgICAgI CQyUCGmBVPrJFRbCFMtDXYcCBEoEEGtZSXiWEAdCEObRXXyUUEeKJCcVUO5Z3GbzTifh7ihc+3eSy0CT H4SMOEltKUj6+CZ7nVDE584df1PvyoylQ7BY1UMo+D2zw/z06ELSES1ktEgtzwZdDxWNu6YOPbVEcjUT GMi432iuOHYAA6s2onerlwxTKFMjLe0LlKrXTaEARZ rRKStDAD7CPFsdaDY37J4/08ZI1vOXPDucfBqTI8ixsbBeLgqpV1U0BIHA/Bo58GI2qCo2azgGGIL/52 pG8df6xK739dZVa4srZGQ48Zebk5IgP2yIe5bUsUBJfXb5DTqLhhMUspWX//IU7wo8v8iShXAqIPZIhj vlFq6NBgyrSlUipnjWQj4OTO7szm62yY/OxhUfnWbb 9XN6GCpszbfyg95+yYUHUBZ4cZIrijPuiNgTIaBwNWmioz9eq2qkDmGyEfMkAvprHDhSewcKCqUKXvol iIaEVonP9wKsiDp50uo5BO+B1/v1y2JpVeRWLIStU+9diKlv/SNs7go7xSwFcWS7NTVZ5VZzIvOqCLzP xl+AbZT+UzQroAKmjpz8pGo68bPcDXdd617+PedWUT /H5ySN6x0xePArhISwR/addWY+SP5P4hjp3hewlfWYWWVvLglZmp+0pRMsmUui27+m02zYcrIAcOyjIW 86K1omSiOs7nsjq8Uh4iGEPukYQB1Hba4miDwfIthyR/32tW11kEnpFnJrg3LUX4mryYPLtg7me5ySYK AhnRg0gQ42TjbeeSOsvTGBJP9FwRj0TJIRev11/Gwen gi3/v2LeCKtq5FdWEzG1FChkxK1m4T1egDp7+3Kh/4yUZB832hQ7AgQot4qAId+8iAFri0n6WUV6WEC6 cPxg/WtTPxgagSQTrVhXdKvoYdiS/VyZYOuYgyNZZv+ObJ5yGX4noyJwer+tZSbKw41xUkh44oHPQ162 8so6EcPYo5IImKZi9bCExjRQyq+I0qjGLzLAEnN+Jv KOAyMIwdHN0oGNlk588phrTVxT9y9f6tN+TKtG1M16RG88eTqVwd+Lu2+TEG7aFWa026FmbQjpBIRKYK HSptJ3OIglqmoKjKpoE80PyC5MmI+vkqpoY595lKTVKJ3TTqJPL7iXM7UqOaU3GulIK3+DL1Wm4rEj1z rflAJAmsHWzZ+ZAVarA8U4xR5VOSbka4aAvvagISiY 8P1FW3D4PH9v91/tU1k1g5D0VXe4QewyYuEuWQEBqFyPeUpEDrwJLjJUwr2Hd/E3RrTqTPH2HeVpBvzD jeq7fxvh1YUIJkZ8wTlhm5JsQYETYocyWlpM9ujm7wqU5dZtfI/j7vKsVmcPCbvs3ghvuDdcjFXzOjYw oMD7QviwBte2dCoCdaWT2A04/u4b76eK1vSroEO7nu 1fQty/d8qaLLgfalb+Eao6a0kbZIlDMfZUNvEk48l0s31gB4lTbblRIvJt8urq5qeUQWJda/QPfkjzo0 lt736iGFvXSbjpHue1ntq9N6ZyAZ1dDwwJQ7kGtOW6UJjIfIrKvAzoD7px3B0JyzldfQYU1k2gGDGL09 RoirdE4colIiibqOIq52LV428K+h8kd67MtRaIWzLu gk9w3yEClP3Gah/9OtztirCcqARJp47hhuv1BQy7hf+eSH57NdDrT9JKnpmvyR9dRuWyd1NCtEZXMVNj nl1wnltPt2SMUZRqpte1gsNONQb/2tlA1aqG3jl2WzVgefC7sbTrTgZ+yKlqntikfF7MoNasugDzkHt0 uM0bHhledtOiM/inbound call center agent/mMrEFk0X8wrociT07TBiJ0nX [file] ZbStE6aBRNQucTwtuYG6N9NzWX5KYBw/oPfvCD/barrera+z/7SMZ5CdP2ADI5nd7TkLYYdHMXyLC6buq7iLb MoNL0qiu36LG5UIH2qkYkmWmH+LpL0txQelY0LpHx1 OWStWGIjZRu6AdBqXTJiY22AM1gaNrBwSN2VNO0LPG4xh6YrKEXzUQGoUF8kyg3fXkLsGI8rlb37FW3O yAb7VFAfD7LdDSVvRKUqw2SiJ9fjwlx8oJU5QP3AQDAnUERhERGWYTQ9O3DjCdLSJglINlT2IYV7HyWG QDKFUIC3RrF2IYSDSRJ0JtE7WpU8SpV4GBMuMGJ0NM yeKwM2KpQ5YYK+BI5Il697DBXxGPJWC6xcGk0wIdUtUALiY4f6SUJyZQ6YuHXzTG7OUdIoF5snEdDgHP AxXT4+z7FbCZHxZKw96xRiUXJsNZXStzmd8iTNqzYZeUZg6dKMPG24YlILLQGaYBPJxfgNOajMfL3n6s wBJKLePZDnQEzRNCghraTyxTMcUD7PWlMiAL9nra6JEzK0JNY8rBWdPk1NDWIpWnE7QCeuICXZCd== ID Date Data Source [id number] 05/03/2020 09:30:00 AM EST [facility] Name Value Range Interpretation Code Description Data Anu rce(s) Supporting Document(s) SARS coronavirus 2 RNA [facility] This lab was ordered by [facility] and reported by [facility]. ID Date Data Source [id number] 04/25/2020 11:26:00 AM EDT [facility] [address] [place] [address] PHONE: [phone] FAX: [phone] Name .................. : PRICILA Cevallos Acct Number.................. : [id number] ROOM. ................. : MR Number ................... : [id number] Stay type ............. : O/P Discharge Date......... ... : 04/24/20 Admit Date ......... : 04/24/20 Admit Phys .................... : CHELSEY Watt Date of ....... : 1980 Family Phys ................... : MARQUES LENNON Phone .................. : [phone] Age ................................ : 39 Film# .................. .:[id number] Sex ................................. : M Unsigned transcriptions are preliminary reports and do not represent a medical or legal document CT THORAX W/CONTRAST [id number] COMPLETE:04/24/20 10:45 [facility] [id number] (REASON FOR CHEST: SOB with widened mediastinum CT SCAN OF THE CHEST WITH IV CONTRAST, 04/24/20: FINDINGS: Imaging was performed following intravenous contrast administration. Cardiomegaly is seen. Heart is mildly enlarged. There is no mediastinal mass or hematoma formation identified. Adenopathy is not seen. Pneumonic infiltrate or pulmonic mass is not identified. There is no pleural effusion or pericardial effusion. Patient is s tatus post median sternotomy. There is fatty infiltration of the liver without hepatic mass or biliary dilatation. IMPRESSION: Mild cardiomegaly. Fatty infiltration of the liver without hepatic mass or biliary dilatation. Otherwise, unremarkable CT scan of the chest with IV contrast. While performing the above CT examination, radiation dose reduction was accomplished utilizing automated exposure control, adjusting of the mA and kV based on the patient's body size and/or the use of imperative reconstructive techniques. CT dose 367.7 mGycm. Contrast agent in mL: 75 mL Isovue 370 Method of administration: Intravenous Page 1 of 2 [facility] [address] [place] [address] PHONE: [phone] FAX: [phone] Name .................. : PRICILA Cevallos Acct Number.................. : [id number] ROOM. ................. : MR Number ................... : [id number] Stay type ............. : O/P Discharge Date......... ... : 04/24/20 Admit Date ......... : 04/24/20 Admit Phys .................... : CHELSEY Watt Date of ....... : 1980 Family Phys ................... : MARQUES LENNON Phone .................. : [phone] Age ................................ : 39 Film# .................. .:[id number] Sex ................................. : M Unsigned transcriptions are preliminary reports and do not represent a medical or legal document CT THORAX W/CONTRAST [id number] COMPLETE:04/24/20 10:45 [facility] [id number] (REASON FOR CHEST: SOB with widened mediastinum Electronically Reviewed and Signed By Kaci Forrest MD , 04/25/20 11:26, EVAN Transcribe Initials: SSR, Transcribe Date: 04/24/20 13:48, Dictation Date: Copy for: CHELSEY MELARA via fax Copy for: MARQUES LOUISE via fax Copy for: [address] [place] [address] REC Page 2 of 2 Name Value Range Interpretation Code Description Data Anu rce(s) Supporting Document(s) ID Date Data Source [id number] 04/17/2020 12:20:00 PM EDT [facility] [address] [place] [address] PHONE: [phone] FAX: [phone] Name .................. : PRICILA Cevallos Acct Number.................. : [id number] ROOM. ................. : MR Number ................... : [id number] Stay type ............. : O/P Discharge Date......... ... : 04/16/20 Admit Date ......... : 04/16/20 Admit Phys .................... : CHELSEY Watt Date of ....... : 1980 Family Phys ................... : MARQUES LENNON Phone .................. : [phone] Age ................................ : 39 Film# .................. .:[id number] Sex ................................. : M Unsigned transcriptions are preliminary reports and do not represent a medical or legal document CHEST 2 VIEWS [id number] COMPLETE:04/16/20 16:36 [facility] [id number] (REASON FOR CHEST: SHORTNESS OF BREATH CHEST X-RAY: 2-VIEWS INDICATION: Shortness of breath. COMPARISON: Previous examination from 05/06/18. FINDINGS: No focal infiltrate or consolidation is identified. The patient is status post median sternotomy and valve replacement. The mediastinum appears increased as compared to the previous examination, currently measuring 7.8 cm in transverse diameter at the level of the ángel. Previously, this measured approximately 6.9 cm on 05/06/18. A CT scan of the chest should be considered for further evaluation. There is a DIRECTOR OF PSYCHIATRY shunt present over the right hemithorax. IMPRESSION: The mediastinum appears increased in size as compared to the previous study. This could be secondary to technical factors, however a CT scan of the chest should be considered for further investigation. Examination dictated by CHADWICK Travis. Examination was reviewed with Kaci Forrest MD, radiologist at the time of this dictation. Electronically Reviewed and Signed By Kaci Forrest MD , 04/17/20 12:20, KGG Transcribe Initials: DZ , Transcribe Date: 04/17/20 03:23, Dictation Date: Copy for: CHELSEY MELARA via fax Copy for: MARQUES LOUISE via fax Copy for: [address] [place] [address] Page 1 of 1 Name Value Range Interpretation Code Description Data Anu rce(s) Supporting Document(s) ID Date Data Source [id number] 04/16/2020 11:20:00 AM EDT [facility] ([facility] Name Value Range Interpretation Code Description Data Anu rce(s) Supporting Document(s) Comprehensive Metabo Laboratory test result [facility] ([facility] Is patient fasting? N Sodium 140 meq/L 134-153 [facility] Is patient fasting? N Potassium 4.5 meq/L 3.6-5.0 [facility] Is patient fasting? N Chloride 104 meq/L 98-107 [facility] Is patient fasting? N Glucose 83 mg/dL 65-110 [facility] ([facility] Is patient fasting? N Co2 28 meq/L 22-30 [facility] ([facility] Is patient fasting? N BUN 15 mg/dL 7-21 [facility] ([facility] Is patient fasting? N BUN/Creat 19 8-27 [facility] ([facility] Is patient fasting? N Creatinine 0.8 mg/dL 0.7-1.5 [facility] ([facility] Is patient fasting? N Total Protein 6.9 g/dL 6.3-8.2 [facility] ([facility] Is patient fasting? N Globulin 3.0 GM/DL 2.4-3.2 [facility] ([facility] Is patient fasting? N Albumin 3.9 g/dL 3.9-5.0 [facility] ([facility] Is patient fasting? N Calcium 9.0 mg/dL 8.4-10.2 [facility] ([facility] Is patient fasting? N A/G Ratio 1.3 0.8-2.0 [facility] ([facility] Is patient fasting? N Total Bili Laboratory test result 0.2-1.3 [place] DENT ([facility] Is patient fasting? N Alkaline Phos 203 U/L 38-126 Above high normal MEDE NT ([facility] Is patient fasting? N Sgot/Ast 50 U/L 5-40 Above high normal [facility] ([facility] Is patient fasting? N Anion Gap 8.0 mmol/L 8.0-16.0 [facility] ([facility] Is patient fasting? N SGPT/Alt 53 U/L 7-56 [facility] ([facility] Is patient fasting? N Non-Aa GFR Laboratory test result [place] OLY ([facility] Is patient fasting? N Afr Amer GFR Laboratory test result [facility] ([facility] Is patient fasting? N Age 39 yrs [facility] ([facility] Is patient fasting? N ID Date Data Source [id number] 04/16/2020 11:20:00 AM EDT [facility] ([facility] Name Value Range Interpretation Code Description Data Anu rce(s) Supporting Document(s) WBC 6.7 10^3/uL 4.2-11.0 [facility] ([facility] Is patient fasting? N CBC W/Automated Diff Laboratory test result [facility] ([facility] Is patient fasting? N Hemoglobin 11.0 g/dL 14.0-16.0 Below low normal [facility] ( [facility] Is patient fasting? N Hematocrit 35.5 % 41.0-51.0 Below low normal [facility] ( [facility] Is patient fasting? N RBC 4.52 10^6/uL 4.50-6.30 [facility] ([facility] Is patient fasting? N MCV 78.5 fL 80.0-94.0 Below low normal [facility] ( [facility] Is patient fasting? N MCH 24.3 pg 27.0-34.0 Below low normal [facility] ( [facility] Is patient fasting? N Platelets 253 10^3/uL 150-450 [facility] ([facility] Is patient fasting? N RDW 17.0 % 11.5-14.8 Above high normal [facility] ([facility] Is patient fasting? N MCHC 31.0 g/dL 31.0-36.0 [facility] ([facility] Is patient fasting? N Lymph 23.9 % 25.0-40.0 Below low normal [facility] ( [facility] Is patient fasting? N MPV 10.2 fL 7.4-10.4 [facility] ([facility] Is patient fasting? N Neut 53.4 % 37.0-80.0 [facility] Is patient fasting? N Stoddard 7.7 % 3.0-8.0 [facility] ([facility] Is patient fasting? N Baso 1.8 % 0.0-2.0 [facility] Is patient fasting? N Eos 12.2 % 0.0-7.0 Above high normal [facility] ([facility] Is patient fasting? N %NRBC 0.0 % 0.0-0.0 [facility] Is patient fasting? N %Ig 1.0 % 0.0-0.0 Above high normal [facility] ([facility] Is patient fasting? N #Lymph 1.61 10^3/uL 0.60-3.40 [facility] Is patient fasting? N #Neut 3.60 10^3/uL 2.00-6.90 [facility] Is patient fasting? N #Stoddard 0.52 10^3/uL 0.00-0.90 [facility] Is patient fasting? N #Ig 0.07 10^3/uL 0.00-0.10 [facility] Is patient fasting? N #Baso 0.12 10^3/uL 0.00-0.20 [facility] ([facility] Is patient fasting? N #Eos 0.82 10^3/uL 0.00-0.70 Above high normal MEDEN T ([facility] Is patient fasting? N Manual Diff Laboratory test result M EDENT ([facility] Is patient fasting? N RBC Morph Laboratory test result ME DENT ([facility] Is patient fasting? N #NRBC 0.00 10^3/uL 0.00-0.00 [facility] Is patient fasting? N ID Date Data Source [id number] 04/16/2020 11:20:00 AM EDT [facility] Name Value Range Interpretation Code Description Data Anu rce(s) Supporting Document(s) Natriuretic peptide.B prohormone N-Terminal [Mass/volu me] in Serum or Plasma 59 pg/mL 0-125 [facility] ([facility] Is patient fasting? N ID Date Data Source [id number] 04/16/2020 11:20:00 AM EDT [facility] ([facility] Name Value Range Interpretation Code Description Data Anu rce(s) Supporting Document(s) CBC W/Automated Diff Laboratory test result [facility] COMPLETE BLOOD COUNT WBC 6.7 10^3/uL 4.2-11.0 [facility]) Hemoglobin 11.0 g/dL 14.0-16.0 [facility]) RBC 4.52 10^6/uL 4.50-6.30 [facility] MCV 78.5 fL 80.0-94.0 [facility] Hematocrit 35.5 % 41.0-51.0 [facility]) MCH 24.3 pg 27.0-34.0 [facility] MCHC 31.0 g/dL 31.0-36.0 [facility] Erythrocyte distribution width [Ratio] by Automated count 17.0 % 11.5-14.8 [facility] ([facility]) Platelet mean volume [Entitic volume] in Blood by Briannaker 10.2 f L 7.4-10.4 [facility] ([facility]) Platelets 253 10^3/uL 150-450 [facility] ([facility]) Lymph 23.9 % 25.0-40.0 [facility] Neut 53.4 % 37.0-80.0 [facility] Stoddard 7.7 % 3.0-8.0 [facility] Baso 1.8 % 0.0-2.0 [facility] %Ig 1.0 % 0.0-0.0 [facility] Eos 12.2 % 0.0-7.0 [facility] #Neut 3.60 10^3/uL 2.00-6.90 [facility] %NRBC 0.0 % 0.0-0.0 [facility] #Lymph 1.61 10^3/uL 0.60-3.40 [facility] #Stoddard 0.52 10^3/uL 0.00-0.90 [facility] #Eos 0.82 10^3/uL 0.00-0.70 [facility] #Baso 0.12 10^3/uL 0.00-0.20 [facility] #Ig 0.07 10^3/uL 0.00-0.10 [facility] #NRBC 0.00 10^3/uL 0.00-0.00 [facility] Manual Diff Laboratory test result [facility] T ([facility]) RBC Morph Laboratory test result [facility] ([facility]) ID Date Data Source [id number] 04/16/2020 11:20:00 AM EDT [facility] Name Value Range Interpretation Code Description Data Anu rce(s) Supporting Document(s) Potassium 4.5 meq/L 3.6-5.0 [facility] Is patient fasting? N Sodium 140 meq/L 134-153 [facility] Is patient fasting? N Comprehensive Metabo Laboratory test result [facility]) Is patient fasting? N Co2 28 meq/L 22-30 [facility] Is patient fasting? N Chloride 104 meq/L 98-107 [facility] Is patient fasting? N Glucose 83 mg/dL 65-110 [facility] Is patient fasting? N BUN 15 mg/dL 7-21 [facility] ([facility] Is patient fasting? N Creatinine 0.8 mg/dL 0.7-1.5 [facility] ([facility] Is patient fasting? N Total Protein 6.9 g/dL 6.3-8.2 [facility] ([facility]) Is patient fasting? N BUN/Creat 19 8-27 [facility] ([facility] Is patient fasting? N Globulin [Mass/volume] in Serum by calculation 3.0 GM/DL 2.4-3.2 [facility] ([facility]) Is patient fasting? N Albumin 3.9 g/dL 3.9-5.0 [facility] ([facility] Is patient fasting? N A/G Ratio 1.3 0.8-2.0 [facility] ([facility] Is patient fasting? N Calcium 9.0 mg/dL 8.4-10.2 [facility] ([facility]) Is patient fasting? N Total Bili Laboratory test result 0.2-1.3 [place] DENT ([facility]) Is patient fasting? N Alkaline Phos 203 U/L 38-126 [facility] ([facility]) Is patient fasting? N Sgot/Ast 50 U/L 5-40 [facility] ([facility] Is patient fasting? N Anion gap in Serum or Plasma 8.0 mmol/L 8.0-16.0 [facility] ([facility]) Is patient fasting? N SGPT/Alt 53 U/L 7-56 [facility] ([facility]) Is patient fasting? N Non-Aa GFR Laboratory test result [facility] ([facility]) Is patient fasting? N Age 39 yrs [facility] ([facility]) Is patient fasting? N Afr Amer GFR Laboratory test result MEDE NT ([facility]) Is patient fasting? N ID Date Data Source [id number] 04/16/2020 11:20:00 AM EDT [facility] ([facility] Name Value Range Interpretation Code Description Data Anu rce(s) Supporting Document(s) Natriuretic peptide.B prohormone N-Terminal [Mass/volu me] in Serum or Plasma 59 pg/mL 0-125 [facility] ([facility]) Is patient fasting? N ID Date Data Source [id number] 04/16/2020 06:03:00 PM EDT [facility] Name Value Range Interpretation Code Description Data Anu rce(s) Supporting Document(s) COMPREHENSIVE METABOLIC PANEL [facility] COMPREHENSIVE METABOLIC PANEL Sodium [Moles/volume] in Serum or Plasma 140 mEq/L 134 - 153 [facility] Potassium [Moles/volume] in Serum or Plasma 4.5 mEq/L 3.6 - 5.0 [facility] Chloride [Moles/volume] in Serum or Plasma 104 mEq/L 98 - 107 [facility] Carbon dioxide, total [Moles/volume] in Serum or Plasma 28 MEQ/L 22 - 30 [facility] Glucose [Mass/volume] in Serum or Plasma 83 MG/DL 65 - 110 [facility] BUN 15 MG/DL 7 - [facility] Creatinine [Mass/volume] in Serum or Plasma 0.8 MG/DL 0.7 - 1.5 [facility] BUN/CREAT 19 8 - 27 [facility] al Protein [Mass/volume] in Serum or Plasma 6.9 G/DL 6.3 - 8.2 [facility] Albumin [Mass/volume] in Serum or Plasma 3.9 G/DL 3.9 - 5.0 [facility] Globulin [Mass/volume] in Serum by calculation 3.0 GM/DL 2.4 - 3.2 [facility] A/G RATIO 1.3 0.8 - 2.0 [facility] Calcium [Mass/volume] in Serum or Plasma 9.0 MG/DL 8.4 - 10.2 [facility] Bilirubin.total [Mass/volume] in Serum or Plasma <0.7 MG/DL 0.2 - 1.3 [facility] Alkaline phosphatase [Enzymatic activity/volume] in Serum or Plasma 203 U/L 38 - 126 H [facility] Aspartate aminotransferase [Enzymatic activity/volume] in Serum or Plasma 50 U/L 5 - 40 H [facility] Alanine aminotransferase [Enzymatic activity/volume] in Seru m or Plasma 53 U/L 7 - 56 [facility] Anion gap 3 in Serum or Plasma 8.0 mmol/L 8.0 - 16.0 [facility] AGE 39 yrs [facility] al NON-AA GFR >60 mL/min [facility] ital AFR AMER GFR >60 mL/min [facility] Male GFR In terprentation 20-49 yrs >60 mL/min Normal 50-59 yrs >56 mL/min Normal 60-69 yrs >49 mL/min Normal 70-79yrs >42 mL/min Normal 80 and above >35 mL/min Normal Female GFR Interpretation 20-39 yrs >60 mL/min Normal 40-49 yrs >58 mL/min Normal 50-59 yrs >51 mL/min Normal 60-69 yrs >45 mL/min Normal 70-79 yrs >39 mL/min Normal 80 and above >32 mL/min Normal ID Date Data Source [id number] 04/16/2020 06:03:00 PM EDT [facility] Name Value Range Interpretation Code Description Data Anu rce(s) Supporting Document(s) BNP 59 PG/ML 0 - 125 [facility] ID Date Data Source [id number] 04/16/2020 05:21:00 PM EDT [facility] Name Value Range Interpretation Code Description Data Anu rce(s) Supporting Document(s) CBC W/AUTOMATED DIFF [facility] COMPLETE BLOOD COUNT Leukocytes [#/volume] in Blood by Automated count 6.7 10^3/uL 4.2 - 1 1.0 [facility] Erythrocytes [#/volume] in Blood by Automated count 4.52 10^6/uL 4. 50 - 6.30 [facility] Hemoglobin [Mass/volume] in Blood 11.0 g/dL 14.0 - 16.0 L [facility] Hematocrit [Volume Fraction] of Blood by Automated count 35.5 % 4 1.0 - 51.0 L [facility] Erythrocyte mean corpuscular volume [Entitic volume] by Auto mated count 78.5 fL 80.0 - 94.0 L [facility] Erythrocyte mean corpuscular hemoglobin [Entitic mass] by Automated count 24.3 pg 27.0 - 34.0 L [facility] Erythrocyte mean corpuscular hemoglobin concentration [Mass/volume] by Automated count 31.0 g/dL 31.0 - 36.0 [facility] Erythrocyte distribution width [Ratio] by Automated count 17.0 % 11.5 - 14.8 H [facility] Platelets [#/volume] in Blood by Automated count 253 10^3/uL 150 - 45 0 [facility] Platelet mean volume [Entitic volume] in Blood by Automated count 10.2 fL 7.4 - 10.4 [facility] Neutrophils/100 leukocytes in Blood by Automated count 53.4 % 37. 0 - 80.0 [facility] Lymphocytes/100 leukocytes in Blood by Manual count 23.9 % 25.0 - 40.0 L [facility] Monocytes/100 leukocytes in Blood by Automated count 7.7 % 3.0 - 8.0 [facility] Eosinophils/100 leukocytes in Blood by Automated count 12.2 % 0.0 - 7.0 H [facility] Basophils/100 leukocytes in Blood by Automated count 1.8 % 0.0 - 2.0 [facility] %IG 1.0 % 0.0 - 0.0 H [facility] al %NRBC 0.0 % 0.0 - 0.0 [facility] al Neutrophils [#/volume] in Blood by Automated count 3.60 10^3/uL 2.00 - 6.90 [facility] Lymphocytes [#/volume] in Blood by Automated count 1.61 10^3/uL 0.60 - 3.40 [facility] Monocytes [#/volume] in Blood by Automated count 0.52 10^3/uL 0.00 - 0.90 [facility] Eosinophils [#/volume] in Blood by Automated count 0.82 10^3/uL 0.00 - 0.70 H [facility] Basophils [#/volume] in Blood by Automated count 0.12 10^3/uL 0.00 - 0.20 [facility] #IG 0.07 10^3/uL 0.00 - 0.10 [facility] #NRBC 0.00 10^3/uL 0.00 - 0.00 [facility] MANUAL DIFF NOT INDICATED [facility] RBC MORPH NOT INDICATED [facility] ID Date Data Source [id number] 04/01/2020 03:00:00 PM EDT [facility] Name Value Range Interpretation Code Description Data Anu rce(s) Supporting Document(s) Follow Up [facility] OFZTTn6xQaPEVkUfFOImAtpFZJdfGTrcBUYfU1Q7LUutZb8DMTyjsvKoWKYpTl7+QOXiGL6bkr7bHYJo gMy 3eHNAvRhjuL9AcMZUdd15CCPVtCOeMPpRnDlLoSBS6OPPdNgD5XQT7VdVgFubkPM8xKDG0IWBxQSanDE FtKUVcDFF2PKOvLY6sWWyoLKujCr3OWN7az2XmMDDlOZXiRswLLZicPXyeSKDyARYcKNKgJ542ugGyAI 7KgHAtCCt8HRNsOmA1SUJgDeK3PRRgNqIdKqJkARZh L8Fvx561bvZkbjE3GF0QK2HxWBU0ZKo9M9inKnZqVBKvGGBbBG6mDiX8CWFoUp8SwXzpOGHeEPOyOd5J lNi9MFL8BMCyTs9+Pj4+Kd2gldQzPoaWSVEtGL4spx22FN5YeTTrGO4CGIqpE10fUQoxAp89QEmeDJIt SqVjKKy4Aq2qKyTsn8SaE8DeTOp4Z0kGNpnsX0UoIZ uyZQ0zQEL6INIaNo5+Zw5uTCZlKA36DNAwDMWUZ1RvgvXgqcNmBYy2OOOzQq4+Cg8cslOkHhtATUBdHC 2kkx09SV2WPX3mgSqyDwHpGUmtX65kfCSdJ7djNmJbZ0XicVizVHIoFT6tI7OmYIxhVHCuGK8kclVvfK 6DpQj5NNTaXt7YqSG6QLPoM86uOSRvTBAFAHEez4Ho QD4Bi1cbuvZvHRWxQB4JKPOsK3RNN7NrE0ciuZqhWRJdIB2WSKpjuLCyPZq7IR6TpTDdBALxF53ptB9o LY61AEk+OhH1tqClgF5RqUrag0XHAN3Nwzf2lMtzL3YzvYM7DjBXxaoBpEriQWgBMFifNZi8q5s6bneK RjsEOXm/M+n5CUXk0QzmYm/mfaqu/TObUywOnq6re/ woK3jstjWXZCheLntjKvbhIherI+gYWATYWJiYWKSv3+WRRHDAO4AZRFWK4SKv4XwjiyDcAGZwXjV0vG 4RGh5oXYIISrzBid17HzOOq057tbSVRvGCEsH0I/GW8/1hjVZO2RGL0yAnsBEjEDRzDLZgRB73HbOGBB QGjj3E0T3PBYQlUITLDCUYHZg/KzTgARARkJAQkZFQ [file] eQ9UAK5at8NW7f9IYKexX8tr7S6TBBf8MSLyPlYTEQQrqKHCD0P4rkMzBuh4+fkbTcZyCEhF5Yhv/victor m [file] [employer] Range Operator Chief+9rOA9aS2xbBXZu8grrMeOu6JDXNahdLAyv20MHT [file] VvAly29IdwlqxDbvVemDLXaDLgC8ylWbaRlH88tPAi1Tcor2n/VICTOR M/NZFKH2m/2nFOy3Pwlrk4gzzJRn [file] vcF4HODLBwImvbW+OH4LOUZydY+Luís/Mq8kHisl4o0/rlJyw0eU6HwG5L938+Lcn9T7njfdlywN2tSe2U [file] vhE3vzDCU253uCyAnh68fC+buPhyicNdKAAzb+Luís/6 [file] Gómez+b8VVIlHRLhpyUqk1w7VnuTDYN0ZTS6P5N2hFki nb7474GReJIa+BPjaGCrZ9Zda46mddktCU/cbAdVf/1KYoXf5SEc8YrmBE9ay8TI3NcOQh8O5i1bFK1q +aTdRzSQNNaA7HROaWjAQYQN0ezWBemJJRJdoUOAISz7e8e2MGiDrvEHagyRnWGN34ri91/i5ZTK8wLW vJqquz/qbrs6TPmespA5jj6hBaaauylAe5XGUv6uff [file] MEy67F73fzAbmrLlRGlSFzlt11hiyUfcR65WBxhBcoKFg0Aj6Xw10tlRWm/bwf9nWobzF96NehFq/Juan C [file] AlSzKnZ2xg1TxW3NyQW4n/Luís/kfCWCG+g+aAh6Qg4j Ezp1MdFbg9jfWgDU77dYrIcHTULFvbYUJzaIM9Y4uXdc3Di4xgrsXEyfWXk0r+LUM5jlkmhgYYnUaMtq S6HuC/7+nsBnrcxTVMiq8bMp4zrfF+lLQn4k0o+xDtmt+fCnwVhqY9QEDm/blheQz0UwOwaLSBhGtuYt lvp7DE3hyvNSWsd4E8Zkw17LPUkeYMy06bIgMb0/4e Vtgh+MDNfQ/Wgfcd5LdiQC3QF5ao4F8g677/IkHvF22awshpyUQx058We8arpaeKe1pUYjnTTovSsneg HZJzSv6vbFsg4PDhrZRrWOm1DDXDuv8rfWMz8j/7EbwQXQiUBm95BELtXBJeGv3JvJhXyRlAhioc/WPg XLvVWZKh2QpN7sYNjQGYQhkNmwwxfD1eIRppCIXubf 61bRUy1yHEB1COiG78+AcsvggsG4Lvtqy/1XlicnxA5cNoe/k66yAaZq70Yynl0GjMJGF6yg040CZXDs YGPZycR93Ls4bHBloLCg3JZrRT+GRY56CHf3ciFrO24d6C6A1h1ecuvwYP2dXqDwv+CZDMNyClyS/7Tc 8WZctBVmyOkiFwfMxAKqbk20BRW6Lp2/TBdnIr85ne 5c+73KSseyHfPGe0Gn8dnR6wiwh/e7bKRdrzbEnrB8Kiv4ZUxvufwYYqNXxMJN6u3+i71u36C5s5r/ck pMXLQxF+22jKaG9Jsb8SMErMTYctmhQ5Oc9PFYpApru8jE2/Bm3E9SusvwQqgZ6UFvNXzI2ReHoah6VS aeqvQuyox1oBX3ZXa7tpwj09LRSFuZ/wIVojPlngns [file] et8wZIjuiKubxGY54lDHNOHTTtIYF9+LUÍS+wkEqSsnf 8eHOajyvnkdSKsTfrgyU/S/YLhBaaR5AGaB95EH7c6BECRU6ORqZoo1v1g7PRI2yicVZyE0c6AnQkHp3 aaLiWfts/IBSnvmxKqZQykj/QRqrKVYneJQp6oLu8GgO20RdcRc4tt5GwZ34WXC7vzTTmZNxFkf7WjJY stpo/x9gwJ4yRzswER9mL1855DZ7yiAqF+L/WHk36I ygWJiklG97dr0mxFaGQc1+bFvF7AYO5bPE/797CXC+lMDv0TsnEwLMvBCVhos/qshi44wB6bJokf1IjC BEnvY3N39zijiLJ3knqVqwJhvyWjkqyaP+vpA7RYtp9/y0P/FEI1/CgAMGZ025324enTikMwnsjWub59 XbCTHxXW1o89sUq0EtO9zK+CcSHSKtwgpWrz8z6ea3 DIEGO+QHJgeSllLSOGrm5yEDy2Ik7ESJS6jEV6NnhFp34iuA8zcjMpnkiXCvGx0KdVREYnSPob50b4Djg6o [file] kx6nWNTZMngDkrHy9+Rj4pkLR6yyeeuoXcaNsnqR2ylelTnV/+rUTfFOHw2DegaygNQIG/NKwqTIF/LUÍS gYRBb4uLL6OycZVpEyQMeS2fer+/f4bO7p6hMmdXAjsFrWcFlSiNCv3tO2eB4uRPfBBmFMV8/L3VD65z daOVLt1KDm3vFUJO4gzDrEDRA1eZpwtIz4yyp6vV4d xwAuQd2WfiPGzD6mHu2xEIf1x0/hHHqoV66vXFls6iJKHXZl31YhGl/oRJ6JHgzmPmz8RGhDXkwDxFhl QW/MtNHSykkVUlxSvrK+vlLahNqQqNbuXIRUBS2MwUefq2v29lwRWZwpfQSYOkyCn1hD+CjZp4T8nJg4 cdpLHgY3EdQNgDPcNgE7fL8NmZ9+0MIIzcoHbnAaNp wb6UBqmbAINELowXVgxoLCgBPDnTfxM8ZY4eRXsbotWLyWHnohjDSomj2WPk1l5YDAhXzSGGMZyFDAC9 ftNn2nvpKsC+OcIQy58INLQKgMCkvtpAznuhUdRg5UxNs0yp5U0CA+sdQQDpuYEtjEuiYiLiih8mjYvm 3J/ZP7ECsyn5x32ZX8oB3BXLtMAcf+mdaEAou3lX/W 1341OasrokkGNVx8mHFKwNLgzGwoah/bpKHISihgNceZAwHDSB9p4F1V14/iGTo9B7ltmYOwUIdcP8hM GmpAk8itw++hsQpHxen30ju5DiQG/r3yEc+qXOwPyu1rFyLkmcF/JNhY7xuLE7RV1gqM0Se7aED/IB/u mxCzVxSQCp60dEbMd5SEAb2/Fz/6YEykMVg8Gd+apq FELISA/99cHEHn82sfcix2pGwh5aBML4ZGbrmrbUHDWM1OjzFcxaG4N1RqXkGaxy0K9+e4kreCQ7JjkVFOa [file] maintenance leader+Zec+HS7eq2huTiy+sT117/XovX8+msa3Axnnx1BazFvFs66j01T9ruQcov/ilop7+7ykNBgqkJp8d [file] 9V/T3WzHtVIwyh+nIstMOGx4MgAwXtsBiuCRs+Cloth Finishing Range Operator Chief/WSVa4dhn8nA4lflskyQ7dLgeXHEr7gpB4xaOeAj [file] 7CaV92XrhZm1jdrPJFk2kGqrz4t2r8ykK+L8KIsU46fA/P87G7Dw2a5OFL8yyhXI7T8P6v59sWVbt+Luís [file] yTd7aRhPr0xBqfQngCjg+r9ZCok/FzKN/1hiVGX/evp operations [file] Cds7kZmL8kMN9RDqIu9wjU8mJ7UOBo/z+AM73kJD4JK43FtMAqtWezjK4/vzZ5aEYoOysuPhRLkc+Revenue Liaison [file] 0/Rodríguez+/Lu6S0YGlZdaq90PdxPpiGz3ThGrQAIM4cBM gNpMGVYR82POjoxiavcCRjGeEnYJP2xosiFzYq8dP+6gQjRITuyr0o/eY7KvutKgrkN1WXxwkRu5LInO +J7ouRdVv09URnBxKaT8CUNkC1Wl8I/ulIBMq3F33pRXxPi6ILeSy1R0Ddz3/S2x/cAmbSUDdhPKPqHS r5tNN66ZG0PbErblKah5+xJlqrdW0V8cT6zGl9K9wb 8EwrjfXYMTDCU6igTluP6xNzmLD7kKAJQzhCL7Oinw7jrlvjpdFWl5HDJuF/jau7JOScNiq5rntizRFZ C8l/H/JrphZIfRhGRGiGHMWEJImUpl9rWUEle0A7FgihgZYfMYscIguldeRw29mXxVrXChijKCZPVt/5 GTzc7vEtmIA566METLLDGIEJ0cjJJ9BgNQnywKMOeJ RN6rC5AlPlH7i2BsqXrYvdVVtOXkZKrwF+DbNB61O6q0bleQDsAjLmdz0zcfdFG9YMNuHSgZPAqY31HI k306MDnlJaWIFy6THwmvdNym7zOqMHXC+a2zcylwcSrGPPHUCUpBPafcxPW6ed9FyAx7TmaTgm8BpeTw Tamar/otRvjIlYwuYyHyDUFFMVHIIaoJyBo7fH7L6GVk [file] telephone surveyor+coMXuYp2iYmGF0q2K2D9YBfANo+84/k3j4quczf [file] Joshua/HLLKMV2M6RX7hJHv2fvrC6g4Dkph9hlxFGQhvDT f9MZPqxWVlj4JqqUUKf7BE98X8Bao/3z9EbK+QXW+/mDOZkrwk9DSKu4ddCSoSciJ9QUIDy/vJ5fjjBj etVpH9/abQrOeX0qM75rZSw3pSC8bqPK3CwwapwiyicpEjgNNiuziy8utkWZbs+nys21twrUeS5ogqaP m2Pk1l0sJvma2KaUm8BwDZYnA702phI6RpET00j9or BMHem6rBhYXU5dfviomcntaRAHnWk5OtTamJpPWSn5xTd/zA73sojq+MITER OPERATOR/aRjibVqGfb8jYWvjFCxvB [file] SK9buX0tbs5Kao76gpp/0B0x9lh/l46Z7xAlG1SORidknmCZ1U9K3sTnc8CIMLjhrSV7q9q1/9eZE/luís [file] RtDVuuoo97p0/sand analyst+FJJyGDc8d2d1uCjWMofnfecL/ [file] [id number]= ID Date Data Source [id number] 03/26/2020 08:05:00 AM EDT [facility] Name Value Range Interpretation Code Description Data Anu rce(s) Supporting Document(s) Protein, Total 6.8 g/dL 6.0-8.5 [facility] Albumin 4.1 g/dL 4.0-5.0 [facility] Bilirubin, Total 0.6 mg/dL 0.0-1.2 [facility] Bilirubin, Direct 0.23 mg/dL 0.00-0.40 [facility] Alkaline Phosphatase 202 IU/L 39-117 Above high normal [facility] AST (SGOT) 42 IU/L 0-40 Above high normal [facility] ALT (SGPT) 51 IU/L 0-44 Above high normal [facility] Procedure Social History Code Duration Value Status Description Data Source(s ) Smoking 03/10/2021 12:00:00 AM EDT Never Smoked A Pipe complet ed Never Smoked A Pipe [facility] ([facility]) Smoking 11/20/2020 12:00:00 AM EDT Patient has never smoked co mpleted Patient has never smoked [facility] ([facility] ) Smoking 06/13/2020 12:00:00 AM EST Patient has never smoked co mpleted Patient has never smoked [facility] ([facility]) Vital Signs ID Date Data Source UNK Name Value Range Interpretation Code Description Data Source(s) Systolic blood pressure 130 mm[Hg] 130 mm[Hg] M [facility]ENT ([facility] Heart rate 71 /min 71 /min [facility] ([facility] Respiratory rate 18 /min 18 /min [facility] ( [facility] Body mass index (BMI) [Ratio] 31.7 kg/m2 31.7 k g/m2 [facility] ([facility] Diastolic blood pressure 70 mm[Hg] 70 mm[Hg] [facility] ([facility] Body temperature 97.2 [degF] 97.2 [degF] [facility] ([facility] Body height 64.25 [in_i] 64.25 [in_i] [facility] ([facility] 5'4.25" Body weight 186.00 [lb_av] 186.00 [lb_av] MEDEN T ([facility] Industry body weight 130 [lb_av] 130 [lb_av] MEDEN T ([facility] Oxygen saturation in Arterial blood by Pulse oximetry 96 % 96 % [facility] ([facility] Body weight 182.00 [lb_av] 182.00 [lb_av] MEDEN T ([facility] Body mass index (BMI) [Ratio] 31.0 kg/m2 31.0 k g/m2 [facility] ([facility] Systolic blood pressure 130 mm[Hg] 130 mm[Hg] M EDENT ([facility] Diastolic blood pressure 72 mm[Hg] 72 mm[Hg] [facility] ([facility] Body temperature 98.0 [degF] 98.0 [degF] [facility] ([facility] Heart rate 71 /min 71 /min [facility] ([facility] Body height 64.25 [in_i] 64.25 [in_i] [facility] ([facility] 5'4.25" Industry body weight 130 [lb_av] 130 [lb_av] MEDEN T ([facility] Oxygen saturation in Arterial blood by Pulse oximetry 98 % 98 % [facility] ([facility] Systolic blood pressure 128 mm[Hg] 128 mm[Hg] M EDENT ([facility] Diastolic blood pressure 72 mm[Hg] 72 mm[Hg] [facility] ([facility] Body height 64.25 [in_i] 64.25 [in_i] [facility] ([facility] 5'4.25" Body weight 187.00 [lb_av] 187.00 [lb_av] MEDEN T ([facility] Body temperature 97.5 [degF] 97.5 [degF] [facility] ([facility] Respiratory rate 18 /min 18 /min [facility] ( [facility] Heart rate 109 /min 109 /min [facility] ([facility] Industry body weight 130 [lb_av] 130 [lb_av] MEDEN T ([facility] Body mass index (BMI) [Ratio] 31.8 kg/m2 31.8 k g/m2 [facility] ([facility] Oxygen saturation in Arterial blood by Pulse oximetry 97 % 97 % [facility] ([facility] Systolic blood pressure 126 mm[Hg] 126 mm[Hg] M EDENT ([facility]) sitting Diastolic blood pressure 74 mm[Hg] 74 mm[Hg] [facility] ([facility]) sitting Body weight 168.00 [lb_av] 168.00 [lb_av] MEDEN T ([facility]) Body height 64 [in_i] 64 [in_i] [facility] 5'4" Body mass index (BMI) [Ratio] 28.8 kg/m2 28.8 k g/m2 [facility] ([facility]) Heart rate 68 /min 68 /min [facility] ([facility] Regular Respiratory rate 16 /min 16 /min [facility] ( [facility]) Systolic blood pressure 128 mm[Hg] 128 mm[Hg] M EDENT ([facility] sitting, regular cuff Diastolic blood pressure 74 mm[Hg] 74 mm[Hg] [facility] ([facility]) sitting, regular cuff Heart rate 104 /min 104 /min [facility] ([facility] Systolic blood pressure 124 mm[Hg] 124 mm[Hg] M EDENT ([facility] Diastolic blood pressure 76 mm[Hg] 76 mm[Hg] [facility] ([facility] Body temperature 98.9 [degF] 98.9 [degF] [facility] ([facility] Respiratory rate 20 /min 20 /min [facility] ( [facility] Body height 64.25 [in_i] 64.25 [in_i] [facility] ([facility] 5'4.25" Body weight 181.00 [lb_av] 181.00 [lb_av] MEDEN T ([facility] Industry body weight 130 [lb_av] 130 [lb_av] MEDEN T ([facility] Body mass index (BMI) [Ratio] 30.8 kg/m2 30.8 k g/m2 [facility] ([facility] Oxygen saturation in Arterial blood by Pulse oximetry 93 % 93 % [facility] ([facility] Heart rate 80 /min 80 /min [facility] ([facility] Systolic blood pressure 124 mm[Hg] 124 mm[Hg] M EDENT ([facility] Diastolic blood pressure 78 mm[Hg] 78 mm[Hg] [facility] ([facility] Body temperature 98.4 [degF] 98.4 [degF] [facility] ([facility] Body weight 179.00 [lb_av] 179.00 [lb_av] MIGUELEN T ([facility] Industry body weight 130 [lb_av] 130 [lb_av] MEDEN T ([facility] Body mass index (BMI) [Ratio] 30.5 kg/m2 30.5 k g/m2 NAYA ([facility] Respiratory rate 14 /min 14 /min NAYA ( [facility] Oxygen saturation in Arterial blood by Pulse oximetry 97 % 97 % NAYA ([facility] Body height 64.25 [in_i] 64.25 [in_i] NAYA [facility] 5'4.25"
[2021-05-05 20:13] VITALS: BP 180/86
[2021-05-05] MEDS ORDERED: KETOROLAC 30 MG/ML 1ML VIAL IV ONE (21:40)
[2021-05-05] MEDS ORDERED: cefTRIAXone SOD 1 GM in D5W MINI-BAG PLUS 50 ML IV ONE (21:40)
[2021-05-05] MEDS ORDERED: KETOROLAC 60MG 2ML VIAL IM ONE (22:15)
[2021-05-05] MEDS ORDERED: LIDOCAINE 1% SDV 5ML VIAL DILUENT ONE (22:15)
[2021-05-05] MEDS ORDERED: cefTRIAXone SOD 1GM VIAL (J0696 PER 250MG) IM ONE (22:15)
[2021-05-05 22:30] LABS: BASO # 0.1 10^3/uL (0.0-0.2); BASO % 0.6 % (0.0-1.0); EOS % 0.1 % (0.0-3.0); HEMATOCRIT 46.9 % (42.0-52.0); LYMPH % 12.6 % (24.0-44.0); MEAN CORPUSCULAR HEMOGLOBIN 28.5 pg (27.0-33.0); MEAN CORPUSCULAR HGB CONC 34.1 g/dl (32.0-36.5); MEAN CORPUSCULAR VOLUME 83.5 fl (80.0-96.0); MONO # 0.9 10^3/uL (0.0-0.8); MONO % 10.7 % (2.0-8.0); NEUTROPHILS % 75.5 % (36.0-66.0); PLATELET COUNT, AUTOMATED 156 10^3/uL (150-450); RED BLOOD COUNT 5.62 10^6/uL (4.30-6.10); WHITE BLOOD COUNT 7.9 10^3/uL (4.0-10.0)
[2021-05-05 22:48] LABS: ERYTHROCYTE SEDIMENTATION RATE 16 mm/hr (0-15)
[2021-05-05 22:50] LABS: BLOOD UREA NITROGEN 19 MG/DL (7-18); CALCIUM LEVEL 8.5 MG/DL (8.5-10.1); CARBON DIOXIDE LEVEL 25 MEQ/L (21-32); CHLORIDE LEVEL 102 MEQ/L (98-107); CREATININE FOR GFR 0.88 MG/DL (0.70-1.30); GLOMERULAR FILTRATION RATE > 60.0 (>60); GLUCOSE, FASTING 96 MG/DL (70-100); POTASSIUM SERUM 3.8 MEQ/L (3.5-5.1); SODIUM LEVEL 136 MEQ/L (136-145)
[2021-05-05] MEDS ORDERED: CLEO300C2 PO (22:51)
[2021-05-05] MEDS ORDERED: MAGICMW SSP (22:51)
--- OUTSIDE RECORDS SUMMARY | 2021-05-05 23:04 | CCD ---
Author Author [facility] Organization [facility] Address Unknown Phone Unavailable Care Team Providers Care Stock Tracer Name Role Phone Elvira Lee PA Unavailable Unavailable Symenow, Elvira German PA Unavailable Unavailable Symenow, Elvira German PA Unavailable Unavailable Symenow, Elvira Faustine PA Unavailable Unavailable Symenow, Elvira German PA Unavailable Unavailable Symenow, Elvira Monserrat PA Unavailable Unavailable Symenow, Elvira Faustine PA Unavailable Unavailable Symenow, Elvira Monserrat PA [...] Unavailable Unavailable Kennedi BARBOSA MD Unavailable Unavailable eKnnedi BARBOSA MD Unavailable Unavailable Kennedi BARBOSA MD [...] Unavailable Ban LINARES MD Unavailable Unavailable Ban LINAERS MD Unavailable Unavailable Ban LINARES MD Unavailable Unavailable Ban LINARES MD Unavailable Unavailable Ban LINARES MD Unavailable Unavailable Ban LINARES MD Unavailable Unavailable Ban LINARES MD Unavailable Unavailable Ban LINARES MD Unavailable Unavailable Ban LINARES MD Unavailable Unavailable LINARESBan Gonzalez MD Unavailable Unavailable Ban LINARES MD Unavailable Unavailable LINARESBan Gonzalez MD Unavailable Unavailable Ban LINARES MD Unavailable Unavailable Ban LINARES MD Unavailable Unavailable LINARESBan Gonzalez MD Unavailable Unavailable Ban LINARES MD Unavailable [...] Unavailable FORNI, R JENNIFER DPM Unavailable Unavailable Mustizer, E Lenore PA Unavailable Unavailable Mustizer, E Lenore PA Unavailable Unavailable Mustizer, E Lenore PA Unavailable Unavailable Mustizer, E Lenore PA Unavailable Unavailable Mustizer, E Lenore PA Unavailable Unavailable Mustizer, E Lenore PA Unavailable Unavailable Mustizer, E Lenore PA Unavailable Unavailable Fish, J [...] FALLON, J YONATHAN DPM PC Unavailable Unavailable FALOLN, J YONATHAN DPM PC Unavailable Unavailable FALLON, [...] is protected by Article 27-F of the [facility] Public Health law. If you continue you may have access to information: Regarding HIV / AIDS; Provided by facilities licensed or operated by the [facility] Office of Mental Health; or Provided by the [facility] Office for People With Developmental Disabilities. If such information is present, then the following [facility] mandated warning applies: This information has been [...] law may result in a fine or detention sentence or both. A general authorization for the release of medical or other information is NOT sufficient authorization for further disc losure. Family History Family Member Name Family Member Gender Family Member Status Date o f Status Description Data Source(s) Unknown Unknown Problem [facility] ([facility] Grandfather Unknown Female Problem [facility] ([facility] Encounters Encounter Providers Location Date Indications Data Source(s ) Outpatient Attender: Lenore Flores PAConsultant: Bryant Meraz 04/27/2021 01:13:00 PM EDT - 04/27/2021 01:13:[address] [facility] Attender: Vanessa Schmidt: TAMMY Joaquin 04/07/2021 08:21:10 PM EDT [facility] Attender: Vanessa Schmidt: TAMMY Joaquin 04/07/2021 08:21:10 PM EDT [facility] Outpatient Attender: Bryant Meraz [place] [facility] 03/21/2021 09:15:0 0 AM EDT [facility] ([facility] Outpatient Attender: YONATHAN LEHMAN DPM PCConsultant: Lyndon perez Fish 03/10/2021 10:43:00 AM EDT - 03/10/2021 10:43:[address] [facility] Outpatient Attender: YONATHAN LEHMAN DPM [facility] 02/04/2021 01:15:00 PM EDT [facility] Outpatient Attender: YONATHAN LEHMAN DPM PCAttender: JENNIFER NEGRETE DPMConsultant: Bryant Fish 02/04/2021 01:13:00 PM EDT - 02/04/2021 01:13:[address] [facility] Outpatient Attender: JENNIFER NEGRETE DPMConsultant: Bryant Cherry h 01/21/2021 11:16:00 AM EDT - 01/21/2021 11:16:[address] [facility] Outpatient Attender: YONATHAN LEHMAN DPM PCConsultant: Lyndon perez Fish 12/26/2020 10:41:00 AM EDT - 12/26/2020 10:41:[address] [facility] Outpatient Attender: Bryant MerazReferrer: Bryant MerazConsultant: Bryant Meraz 11/20/2020 05:53:00 PM EDT - 11/20/2020 06:03:[address] [facility] Outpatient Attender: Bryant Meraz [place] [facility] 11/20/2020 02:00:0 0 PM EDT [facility] ([facility] Outpatient Attender: YONATHAN LEHMAN DPM PCConsultant: Lyndon perez Fish 10/17/2020 10:48:00 AM EDT - 10/17/2020 10:48:[address] [facility] Attender: VANESSA LINARES MDReferrer: TAMMY Slade MD 10/03/2020 08:21:04 PM EDT [facility] Attender: VANESSA LINARES MDReferrer: TAMMY Slade MD 10/03/2020 08:21:04 PM EDT [facility] Outpatient Attender: Bryant Marques [place] [facility] 08/14/2020 01:00:0 0 PM EST [facility] ([facility] Outpatient Attender: YONATHAN LEHMAN DPM PCConsultant: Lyndon Meraz 08/08/2020 10:59:00 AM EST - 08/08/2020 10:59:[address] [facility] Attender: VANESSA LINARES MDReferrer: TAMMY Slade MD [...] [facility] Attender: Monserrat Lee [facility] 06/13/2020 12:00:00 PM EST [facility] ([facility]) Outpatient Attender: YONATHAN LEHMAN DPM PCConsultant: Lyndon Meraz 05/30/2020 11:17:00 AM EST - 05/30/2020 11:17:[address] [facility] Attender: VANESSA LINARES MDReferrer: TAMMY Slade MD 05/14/2020 08:20:11 PM EST [facility] Attender: VANESSA LINARES MDReferrer: TAMMY Slade MD 05/14/2020 08:20:11 PM EST [facility] Out[facility] Attender: [facility] Office 04/29/2020 12:00:0 0 PM EST [facility] ([facility] Outpatient Attender: KELTON BARBOSA MDConsultant: Bryant Saleh cyndi 04/24/2020 09:21:00 AM EDT - 04/24/2020 10:21:[address] [facility] Patient discharged. Outpatient Attender: KELTON BARBOSA MDConsultant: Bryant Saleh cyndi 04/20/2020 08:58:00 AM EDT - 04/22/2020 11:59:[address] [facility] Patient discharged. Outpatient Attender: KELTON BARBOSA MDConsultant: Bryant Saleh cyndi 04/16/2020 12:45:00 PM EDT - 04/16/2020 01:45:[address] [facility] Outpatient Attender: KELTON BARBOSA MD [facility] 10:40:00 AM EDT [facility] ([facility] Attender: VANESSA LINARES MDReferrer: [...] AM EDT - 03/21/2020 10:55:[address] [facility] Immunizations Vaccine Date Status Description Data Source(s) New in 2012. IIV4 03/21/2021 09:46:00 AM EDT completed [facility] ([facility] COVID-19 VACCINE Moderna 09/20/2020 12:00:00 AM EDT completed NYSIIS Vaccine Series Complete: YESThis Data wa s Submitted to [facility] Via [employer]. COVID-19 VACCINE Moderna 08/23/2020 12:00:00 AM EST completed NYSIIS Vaccine Series Complete: NOThis Data was Submitted to [facility] Via [employer]. New in 2012. IIV4 04/29/2020 01:25:00 PM EST completed [facility] ([facility] Medications Medication Brand Name Start Date Product Form Dose Route Admi nistrative Instructions Pharmacy Instructions Status Indications Reaction Description Data Source(s) Injection (SC)/(Im) 03/21/2021 12:00:00 AM EDT completed [facility] ([facility] Medication administered onsite Levofloxacin 500 MG Oral Tablet Levofloxacin 02/04/2021 12:00:00 AM E DT ORAL completed [facility] ([facility]) Sucralfate 100 MG/ML Oral Suspension [Carafate] Carafate 11/29/2020 12:00:00 AM EDT ORAL active [facility] Aspirin 325 MG Oral Tablet Aspirin 11/29/2020 12:00:00 AM EDT ORAL completed [facility] 60 ACTUAT Albuterol 0.09 MG/ACTUAT Metered Dose Inhaler Albu terol Sulfate HFA 11/05/2020 12:00:00 AM EDT RESPIRATORY active [facility] ([facility] Omeprazole 20 MG Delayed Release Oral Capsule Omeprazole 08/14/2020 12:00:00 AM EST ORAL active [facility] Omeprazole 40 MG Delayed Release Oral Capsule Omeprazole 07/12/2020 12:00:00 AM EST ORAL completed [facility] ([facility] Famotidine 20 MG Oral Tablet Famotidine 06/12/2020 12:00:00 AM EST ORAL active [facility] ([facility]) Budesonide 0.25 MG/ML Inhalant Solution [Pulmicort] Pulmicor t 04/29/2020 12:00:00 AM EST active M EDENT ([facility] Zithromax Z-Mauro Zithromax Z-Mauro 04/29/2020 12:00:00 AM EST ORAL completed [facility] Omeprazole 20 MG Delayed Release Oral Capsule Omeprazole 04/16/2020 12:00:00 AM EDT ORAL completed [facility] ([facility] Insurance Providers Payer name Policy type / Coverage type Policy ID Covered alliance party ID Covered alliance party's relationship to underwood Policy [place] Plan Information MEDICAID M [id number] Self [id number] Rmsco/Lifetime Selvin Solut Medigap Part B [id number] Family Dep endent Lifetime Benefit Solut Medigap Part B [id number] Family Dependent Lifetime Benefit Solut Medigap Part B [id number] Family Dependent 3 [id number] POMCO [id number] FA2 [id number] BCBS [place] PPO 302/307 [id number] FA2 [id number] BCBS [place] PPO 302/307 [id number] FA2 [id number] POMCO [id number] FA2 [id number] MEDICAID [id number] SP [id number] [place] Medigap Part B [id number] Family Dependent [place] Medigap Part B [id number] Family Dependent [id number] [address] ADILENE UNAVAILABLE 1980 UNAV AILABLE [place] HUY J UNAVAILABLE 1980 UNAVAILABLE MEDICAID [place] [id number] AV [id number] [address] DOMINIQUE S UNAVAILABLE [id number] UNAV AILABLE [place] [id number] 3 [id number] [address] DOMINIQUE S UNAVAILABLE [id number] UNAV AILABLE [place]OM[place] U [id number] Child [id number] POMCO [id number] FA2 [id number] POMCO U [id number] Child [id number] MEDICAID M [id number] Self [id number] MEDICAID [id number] SP [id number] BCBS [facility] Commercial [id number] Family Dependent BCBS [place] Ppo U/W Medigap Part [id number] Family Dependent [id number] BCBS [place] Ppo U/W Medigap Part [id number] Family Dependent BCBS [place] Ppo U/W Medigap Part B [id number] Family Dependent EXCELLUS H [id number] Unkn [id number] BCBS [place] PPO 302/307 [id number] FA2 [id number] [facility] POS [id number] EXCELLUS H [id number] Child [id number] EXCELLUS H [id number] Unkn [id number] MEDICAID [place] [id number] AV [id number] [place] Medigap Part B [id number] Family Dependent BC/BS [place] Commercial [id number] Self MEDICAID M [id number] S [id number] EXCELLUS BCBS B [id number] C VYS [id number] Medicaid Medigap Part B [id number] Self 1 1 Medicaid Medicaid [id number] S elf [id number] MEDICAID -RECURRING [id number] 1 8 [id number] BLUE CROSS BLUE SHIELD -RECURRING [id number] Medicaid Medicaid [id number] Self [id number] BLUE CROSS BLUE SHIELD -O/P [id number] 19 [id number] MEDICAID [id number] SP [id number] POMCO-O/P [id number] 19 [id number] Medicaid Medicaid [id number] Self [id number] Medicaid Medicaid [id number] Self [id number] Medicaid Medicaid [id number] Self [id number] MEDICAID-O/P [id number] S MEDICAID -PHYSICIAN [place] [id number] 1 8 [id number] Medicaid Medigap Part B [id number] Self [place] [id number] 18 [id number] IDS MEDICAID [id number] SP [id number] S Problems, Conditions, and Diagnoses Code Display Name Description Problem Type Effective Dates Data Source(s) Z1152 ENCOUNTER FOR SCREENING FOR COVID-19 ENCOUNTER F OR SCREENING FOR COVID-19 Diagnosis 04/27/2021 01:13:[address] [facility] Q11931 Cellulitis of right toe Cellulitis of right toe Diagno sis 02/04/2021 01:13:[address] [facility] [id number] Pain in left foot Pain in left foot Diagnosis 02/04/2021 01:13:[address] 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 M2041 Other hammer toe(s) (acquired), right fo ot Other hammer toe(s) (acquired), right foot Diagnosis 02/04/2021 01:13:00 PM [facility] L600 Ingrowing nail Ingrowing nail Diagnosis 02/04/2021 01:13: 00 PM [facility] K219 Gastro-esophageal reflux disease without esophagitis Gastro-esophageal reflux disease without esophagitis Diagnosis 11/20/2020 05:53:[address] [facility] I10 Essential (primary) hypertension Essential (primary) h ypertension Diagnosis 11/20/2020 05:53:00 PM [facility] E785 Hyperlipidemia, unspecified Hyperlipidemia, unspecifie d Diagnosis 11/20/2020 05:53:00 PM [facility] K760 Fatty (change of) liver, not elsewhere c lassified Fatty (change of) liver, not elsewhere classified Diagnosis 04/24/2020 09:21:00 AM [facility] I517 Cardiomegaly Cardiomegaly Diagnosis 04/24/2020 09:21:00 A M [facility] R0602 Shortness of breath Shortness of breath Diagnosis 1 09:21:00 AM [facility] R99 Ill-defined and unknown cause of mortali ty Ill-defined and unknown cause of mortality Diagnosis 04/22/2020 11:59:00 AM [facility] Z952 Presence of prosthetic heart valve Presence of p rosthetic heart valve Diagnosis 04/16/2020 12:45:00 PM [facility] K920 Hematemesis Hematemesis Diagnosis 04/16/2020 12:45:[address] 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 ) Note: TAVR Surgeries/Procedures Procedure Description Date Indications Data Source(s) OFFICE OUTPATIENT VISIT 25 MINUTES 03/21/2021 12:00:00 AM EDT [facility] ([facility] Injection (SC)/(Im) 03/21/2021 12:00:00 AM EDT [facility] ([facility] Trim Nondystrophic Nails 03/10/2021 12:00:00 AM EDT [facility] ([facility]) Avulsion Nail Plate Simple Single 02/04/2021 12:00:00 AM EDT [facility] ([facility]) OFFICE OUTPATIENT VISIT 15 MINUTES 02/04/2021 12:00:00 AM EDT [facility] ([facility]) OFFICE OUTPATIENT VISIT 10 MINUTES 01/21/2021 12:00:00 AM EDT [facility] ([facility]) Trim Nondystrophic Nails 12/26/2020 12:00:00 AM EDT [facility] ([facility]) Removal Impacted Cerumen Irrigation/Lavage Unilateral 11/22/2020 12:00:00 AM EDT [facility] OFFICE OUTPATIENT VISIT 25 MINUTES 11/20/2020 12:00:00 AM EDT [facility] ([facility] Trim Nondystrophic Nails 10/17/2020 12:00:00 AM EDT [facility] ([facility]) Trim Nondystrophic Nails 08/08/2020 12:00:00 AM EST [facility] ([facility]) ECG ROUTINE ECG W/LEAST 12 LDS W/I&R 06/13/2020 12:00: 00 AM EST [facility] ([facility]) Trim Nondystrophic Nails 05/30/2020 12:00:00 AM EST [facility] ([facility]) Trim Nondystrophic Nails 03/21/2020 12:00:00 AM EDT [facility] ([facility]) Results ID Date Data Source [id number] 04/27/2021 01:30:[address] [facility] Name Value Range Interpretation Code Description Data Anu rce(s) Supporting Document(s) SARS coronavirus [address] [facility] This lab was ordered by [facility] josiane and reported by [facility]. ID Date Data Source [id number] 04/29/2021 12:09:[address] [facility] Name Value Range Interpretation Code Description Data Anu rce(s) Supporting Document(s) SARS-CoV-2, JAYESH Not Detected Not Detected [facility] This nucleic acid amplification test was developed and its performancecharacteristics determined by [employer]. Nucleic acidamplification tests include RT-PCR and TMA. [...] assay. SARS-CoV-2, JAYESH 2 DAY TAT Performed [facility] ID Date Data Source [id number] 04/07/2021 02:30:00 PM EDT [facility] Name Value Range Interpretation Code Description Data Anu rce(s) Supporting Document(s) Follow Up [facility] ZSUCKz5gIaHXQaYeQTZfZbwKRHdvNTdnPRXpE3G2GEhjAb9YQJoiyfLtQCIsBp7+XQCsGH1cef1zFBSg gMy 1gQDIcSrcfH8VqCAGqd95CFTXqVWvSViMfHaJiNUVbQUT5WyS1DZD2YkKdYrqyUX4jNFQ2EXThVAavXE NfRWOmBEP7LOydNU0wLYhkVFosWd9KPN7un4NqSCSuJACjBeyIZJgcJIpjWFCkXBMnLYBlA513yfXgCW 1SlEEbSSt8LGFtRmQ2QPGlOgG3ULWiGqBtOoRkKWTb A0Maj633dxSewtF9JN8JZ4QhKVN3ESk8W1vuGySwEVBuEYNtXA9dNhK7NPJxHr1DmNlrIHRiXCCvDv7M bRz9IRY2NSCuAv1+Pj4+Fy2ckzJjLfsDHGCwTP3uhl37SI6FxYRrPS5XAAipI47eOAkzFw26ILbgWRVb KyZpZGz2Nn4zHcLey4HeQ8PyEDl9P6tCQjmqM6CrTL ygCC0jVKK6VEMdAy4+Nj6aJXPzAN47MVTkGMXBV7EilyQczpQcJHg2YSJrMb7+Vk7qijDhBmuCOAPgYZ 4phj17YK5AQP2xiDrtWrO6INUiC47gnNXcI0bsXuWnC8IxmAwfKSWxAG0eK0XhPKqcSMYwHS3hziWkyE 9OyKh4ESKqCi2AlLP4XDPcZ41iJPFgOQTIOYAbm1Kn YC9Lg7lwmbIwOTKiBB3RDFHvZ2RLD9JqP9sfbWnfRLFoKZ2BXOitcQHuLOm4MA0LjULcDVDlD05dnC9t PY15QGt+OhG8apUveP5ZdAdey6FXWL0L5i9XrDsgSdAkkDdkRVBZWIYgvNO0yF4cHoeWSatUqjsPjJF8 WS99KZi98U878Iujr2/t1f2h67pw/4y6gbqwzrqzx2 [file] /FQghoeL3ArLPJeBbC3h1hX/7Jez7K7FpeljJKLwxM8/vp director of creative [file] GNQWZTgezoiSyb45gf/r7em/group home+sSFf4a6+aWlkS30BSDdnKl//RrsDvlZpI33Q/YHn+cDOxPNYcfT8 [file] RPX43tER3ChrzG0FYBBuF2FNsyVMrk/Hm9g9C5BRYLd8hUp+Revenue Cycle Administrator/GNOObr8Ivf7a9fiSC0eHfB5Q8AQUK SNVP03oQ2/hI93/eU9OL3zweqtFYDqds+d0qBzBmiWTehAu4S4XJDlpKFKVkkHTN6NFAxPK0qp8q+I1K wuScdibe2esrc1fBLmJFqOV1EZEDd/1E8l7KIBefCV 7ABY3OkQ0pWXtJDeiLOMHUG+TpZ/nhCe9wAJaUNow2Tarfng2LkSE9D7uvsE8p91MHWyrahxx/iWY6HI SUuBTo+WBG7HGeJIFMJ3lRso7cZLlAmYTOy/Ke/wncLOuN7Y2Q6/VeD9dYaNYC4/5hCxszH4KTwHDdcI 6ovzznhmTaw9RetvZsyphujMR5fim+0pikg6ry9dN+ [file] rn [file] va0CYxAzonWY29f9kw2AaRVOIh/Sofía/YUWDMl0+PXsRMtoiZP/EzkEubC2UelceByXlxrUF8AE/m4hIm [file] 6YU+/ekJ9aM4huDhsKsw/PEDRO LUIS+SdN65tNUqtbuzeaLSxa2ODnVw8+asz7Bjc8GBo562PesZrvxman8zwR [file] BpBeEqQECHCZa+1530d2v0GMYaqt/dzn3Lv+eH [file] cCXC3bf6R/qPxpLOS1f3yIUJ4/5hz2DsCaf3HSrQvsoaKyBee5tXxYMe9fnhqw/preparation operator+LwhRZ66fb4Qbx [file] Luís+ck6PF0aedUKapcJ7inP9aTYCVFLgYNeDcFxqPLsOar3Ed1vTA3N/gxtG2Ad8y2T+/n0FPWMX7vVD3 foFpzviU+4TP1lDXjAZ+KtapUs6X1ALrBuACfgYMLo/T+GCoFb/8EggF52xDBeQv2zPYbWx6tQr95djP 1u+hU0uRtJY6V8ivWz65/lPzD8w5PnqbzCtq2rXDHW xjPJYNUFb2uBA4WiMAJsxAzJzewGx0kkraF7l9fxybK+bis4eAq2s/G4yI3ja5SxMDiSQc+d4KrmbCf+ Qy/mdS9c71wRGGZdfihj/I/7GOSMVkG5NbxhzNWb8rqjH2JnSIP+o9kI7xH1e5eR5C0aCqBH8ohRYAK5 V9Ebqh9+5lvXh8DKZnKU4ty9l+oq6LzWrvygD2G5Ey GQZvPtxKmygSLv3MvjGJonDpxNUDJm1GmEsz2Quy5pt+xolkhGtUF9i7+GJix/wY4kKMtnNdcGL6OwVv 6xUSBbtFg2bmk6GBC68/Omrtn/FeBslzjkBEB22t4sWs0VOTC/l93HWog97lQ0CrM7tixSZP4pMxG/fp I2GKt1xTX/re4b77LS+rWmyKWu9io4gj5Y70yDY5m7 JliWrjHVk9TqBACxVe9qMUyOZh1HfshiwVHE/UWgYOlAVzgDbX//sF/68RFVdupTw+8zEUu32M8XePQQ gm8Suz3epPrkU5+PPqRoBFutr+Alisa+AgVz2rc2VUPiocHZNJPOqdLzRtuDcA30tq7hj1V2VUalg6cnaW [file] X472lNVoHIyt7UVBUQu3jx+OPERATIONS PROJECT MANAGER+sq2MfoNb2pEpQWut9zYjUoEB+ITRduZtuu4Xq3Ccn36rLWjAUBGu3C [file] Luís/+XhKbZ3vaLdvZ2p7HRMn0Zrpf9Bk1sa0rzuVcw4dqDY4pEQ+OvzXEHzNfIKwfEKGUbHxr/e0SsQ8+ [file] VFT0Y= ID Date Data Source [id number] 03/21/2021 09:50:00 AM EDT [facility] ([facility] Name Value Range Interpretation Code Description Data Anu rce(s) Supporting Document(s) Glucose [Mass/volume] in Serum or Plasma 94 mg/dL 65-99 [facility] ([facility] Creatinine [Mass/volume] in Serum or Plasma 0.79 mg/dL 0.76-1.27 [facility] ([facility] BUN 13 mg/dL 6-20 [facility] ([facility] eGFR If NonAfricn Am 113 mL/min/1.73 [facility] ([facility] eGFR If Africn Am 131 mL/min/1.73 ME DENT ([facility] currently reports eGFR in comp liance with the current recommendations of the National Kidney Foundation. [facility] will update reporting as new guidelines are published from the NKF-ASN Task force. Urea nitrogen/Creatinine [Mass Ratio] in Serum or Plasma 16 9 -20 [facility] ([facility] Sodium [Moles/volume] in Serum or Plasma 140 mmol/L 134-144 [facility] ([facility] Potassium [Moles/volume] in Serum or Plasma 4.3 mmol/L 3.5-5.2 [facility] ([facility] Chloride [Moles/volume] in Serum or Plasma 103 mmol/L 96-106 [facility] ([facility] Carbon dioxide, total [Moles/volume] [...] [facility] ID Date Data Source [id number] 03/21/2021 09:50:00 AM EDT [facility] ([facility] Name Value Range Interpretation [...] by Automated count 27.1 pg 26.6-33.0 [facility] Erythrocyte mean corpuscular volume [Entitic volume] by Auto mated count 81 fL 79-97 [facility] ([facility] Erythrocyte distribution width [Ratio] by Automated count 15.0 % 11.6-15.4 [facility] ([facility] Neutrophils 53 % [facility] ([facility] Platelets [#/volume] in Blood by Automated count 167 x10E3/uL 150-450 [facility] ([facility] Eosinophils/100 leukocytes in Blood by Automated count 7 % [facility] ([facility] Monocytes/100 leukocytes in Blood by Automated count 8 % [facility] ([facility] Lymphs 30 % [facility] Basophils/100 leukocytes in Blood by [...] by Automated count 0.1 x10E3/uL 0.0-0.2 [facility] ([facility] Immature granulocytes/100 leukocytes in Blood by Automated count 0 % [facility] ([facility] Immature granulocytes [#/volume] in Blood by Automated count 0.0 x10E3/uL 0.0-0.1 [facility] ([facility] Morphology [Interpretation] in Blood Narrative Laboratory test result [facility] ([facility] Nucleated erythrocytes/100 leukocytes [Ratio] in Blood by Automated count Laboratory test result [facility] ([facility] ID Date Data Source [id number] 11/20/2020 02:24:00 PM EDT [facility] ([facility] Name Value Range Interpretation Code Description Data Anu rce(s) Supporting Document(s) Culture Urine Laboratory test result MEDENT ([facility] {SOURCE: Random Void~NURSE COLLECTED? N Is patient fasting? N Is patient fasting? N ID Date Data Source [id number] 11/20/2020 02:24:00 PM EDT [facility] ([facility] Name Value Range Interpretation Code Description Data Anu rce(s) Supporting Document(s) Creatine kinase [Enzymatic activity/volume] in Serum or Plasma 118 U/L 30-170 [facility] ([facility] {SOURCE: Random Void~NURSE COLLECTED? N Is patient fasting? N Is patient fasting? N ID Date Data Source [id number] 11/20/2020 02:24:00 PM EDT [facility] ([facility] Name Value Range Interpretation Code Description Data Anu rce(s) Supporting Document(s) Urinalysis Laboratory test result ME DENT ([facility] {SOURCE: Random Void~NURSE COLLECTED? N Is patient fasting? N Is patient fasting? N Clarity Laboratory test result MEDENT ([facility] {SOURCE: Random Void~NURSE COLLECTED? N Is patient fasting? N Is patient fasting? N Color Laboratory test result MEDENT ([facility] {SOURCE: Random Void~NURSE COLLECTED? N Is patient fasting? N Is patient fasting? N Source Laboratory test result [facility] ([facility] {SOURCE: Random Void~NURSE COLLECTED? N Is patient fasting? N Is patient fasting? N Spec [place] 1.020 1.001-1.030 [facility] ([facility] {SOURCE: Random Void~NURSE COLLECTED? N Is patient fasting? N Is patient fasting? N pH 5 5-9 [facility] ([facility] {SOURCE: Random Void~NURSE COLLECTED? N Is patient fasting? N Is patient fasting? N Bilirubin Laboratory test result ME DENT ([facility] {SOURCE: Random Void~NURSE COLLECTED? N Is patient fasting? N Is patient fasting? N Glucose Laboratory test result [facility] ([facility] {SOURCE: Random Void~NURSE COLLECTED? N Is patient fasting? N Is patient fasting? N Ketone Laboratory test result [facility] ([facility] {SOURCE: Random Void~NURSE COLLECTED? N Is patient fasting? N Is patient fasting? N Protein 100 Abnormal (applies to non-numeric res ults) [facility] ([facility] {SOURCE: Random Void~NURSE COLLECTED? N Is patient fasting? N Is patient fasting? N Nitrite Laboratory test result [facility] ([facility] {SOURCE: Random Void~NURSE COLLECTED? N Is patient fasting? N Is patient fasting? N Leuk Est 100 Abnormal (applies to non-numeric res ults) [facility] ([facility] {SOURCE: Random Void~NURSE COLLECTED? N Is patient fasting? N Is patient fasting? N Urobilinogen Laboratory test result [facility] ([facility] {SOURCE: Random Void~NURSE COLLECTED? N Is patient fasting? N Is patient fasting? N Blood Laboratory test result [facility] ([facility] {SOURCE: Random Void~NURSE COLLECTED? N Is patient fasting? N Is patient fasting? N WBC Laboratory test result Abnormal (applies to non -numeric results) [facility] ([facility] {SOURCE: Random Void~NURSE COLLECTED? N Is patient fasting? N Is patient fasting? N RBC Laboratory test result [facility] ([facility] {SOURCE: Random Void~NURSE COLLECTED? N Is patient fasting? N Is patient fasting? N Microscopic Laboratory test result M JUDY ([facility] {SOURCE: Random Void~NURSE COLLECTED? N Is patient fasting? N Is patient fasting? N Epithelial Laboratory test result ME ALDRIDGE ([facility] {SOURCE: Random Void~NURSE COLLECTED? N Is patient fasting? N Is patient fasting? N Bacteria Laboratory test result [facility] ([facility] {SOURCE: Random Void~NURSE COLLECTED? N Is patient fasting? N Is patient fasting? N Mucous Laboratory test result [facility] ([facility] {SOURCE: Random Void~NURSE COLLECTED? N Is patient fasting? N Is patient fasting? N ID Date Data Source [id number] 11/20/2020 02:24:00 PM EDT [facility] ([facility] Name Value Range Interpretation Code Description Data Anu rce(s) Supporting Document(s) Cve Panel Laboratory test result OLY ([facility] {SOURCE: Random Void~NURSE COLLECTED? N Is patient fasting? N Is patient fasting? N Cholesterol 226 mg/dL 131-200 Above high normal [facility] ([facility] {SOURCE: Random Void~NURSE COLLECTED? N Is patient fasting? N Is patient fasting? N Triglycerides 146 mg/dL 35-160 [facility] ([facility] {SOURCE: Random Void~NURSE COLLECTED? N Is patient fasting? N Is patient fasting? N HDL 71 mg/dL 29-86 [facility] ([facility] {SOURCE: Random Void~NURSE COLLECTED? N Is patient fasting? N Is patient fasting? N LDL 143 mg/dL 65-175 [facility] ([facility] {SOURCE: Random Void~NURSE COLLECTED? N Is patient fasting? N Is patient fasting? N Risk Factor 3.2 3.4-4.9 Below low normal [facility] ([facility] {SOURCE: Random Void~NURSE COLLECTED? N Is patient fasting? N Is patient fasting? N LDL/HDL 2.01 1.00-3.55 [facility] ([facility] {SOURCE: Random Void~NURSE COLLECTED? N Is patient fasting? N Is patient fasting? N ID Date Data Source [id number] 11/20/2020 02:24:00 PM EDT [facility] ([facility] Name Value Range Interpretation Code Description Data Anu rce(s) Supporting Document(s) Sodium 140 meq/L 134-153 [facility] ([facility] {SOURCE: Random Void~NURSE COLLECTED? N Is patient fasting? N Is patient fasting? N Comprehensive Metabo Laboratory test result [facility] ([facility] {SOURCE: Random Void~NURSE COLLECTED? N Is patient fasting? N Is patient fasting? N Chloride 103 meq/L 98-107 [facility] ([facility] {SOURCE: Random Void~NURSE COLLECTED? N Is patient fasting? N Is patient fasting? N Co2 28 meq/L 22-30 [facility] ([facility] {SOURCE: Random Void~NURSE COLLECTED? N Is patient fasting? N Is patient fasting? N Potassium 4.1 meq/L 3.6-5.0 [facility] ([facility] {SOURCE: Random Void~NURSE COLLECTED? N Is patient fasting? N Is patient fasting? N BUN 15 mg/dL 7-21 [facility] ([facility] {SOURCE: Random Void~NURSE COLLECTED? N Is patient fasting? N Is patient fasting? N Glucose 88 mg/dL 70-99 [facility] ([facility] {SOURCE: Random Void~NURSE COLLECTED? N Is patient fasting? N Is patient fasting? N Creatinine 0.8 mg/dL 0.7-1.5 [facility] ([facility] {SOURCE: Random Void~NURSE COLLECTED? N Is patient fasting? N Is patient fasting? N Total Protein 7.2 g/dL 6.3-8.2 [facility] ([facility] {SOURCE: Random Void~NURSE COLLECTED? N Is patient fasting? N Is patient fasting? N BUN/Creat 19 8-27 [facility] ([facility] {SOURCE: Random Void~NURSE COLLECTED? N Is patient fasting? N Is patient fasting? N Albumin 4.1 g/dL 3.9-5.0 [facility] ([facility] {SOURCE: Random Void~NURSE COLLECTED? N Is patient fasting? N Is patient fasting? N Globulin 3.1 GM/DL 2.4-3.2 [facility] ([facility] {SOURCE: Random Void~NURSE COLLECTED? N Is patient fasting? N Is patient fasting? N Calcium 9.2 mg/dL 8.4-10.2 [facility] ([facility] {SOURCE: Random Void~NURSE COLLECTED? N Is patient fasting? N Is patient fasting? N A/G Ratio 1.3 0.8-2.0 [facility] ([facility] {SOURCE: Random Void~NURSE COLLECTED? N Is patient fasting? N Is patient fasting? N Total Bili Laboratory test result 0.2-1.3 ME ALDRIDGE ([facility] {SOURCE: Random Void~NURSE COLLECTED? N Is patient fasting? N Is patient fasting? N Sgot/Ast 44 U/L 5-40 Above high normal [facility] ([facility] {SOURCE: Random Void~NURSE COLLECTED? N Is patient fasting? N Is patient fasting? N Alkaline Phos 201 U/L 38-126 Above high normal MEDE NT ([facility] {SOURCE: Random Void~NURSE COLLECTED? N Is patient fasting? N Is patient fasting? N SGPT/Alt 51 U/L 7-56 [facility] ([facility] {SOURCE: Random Void~NURSE COLLECTED? N Is patient fasting? N Is patient fasting? N Age 40 yrs [facility] ([facility] {SOURCE: Random Void~NURSE COLLECTED? N Is patient fasting? N Is patient fasting? N Anion Gap 9.0 mmol/L 8.0-16.0 [facility] ([facility] {SOURCE: Random Void~NURSE COLLECTED? N Is patient fasting? N Is patient fasting? N Non-Aa GFR Laboratory test result ME ALDRIDGE ([facility] {SOURCE: Random Void~NURSE COLLECTED? N Is patient fasting? N Is patient fasting? N Afr Amer GFR Laboratory test result [facility] ([facility] {SOURCE: Random Void~NURSE COLLECTED? N Is patient fasting? N Is patient fasting? N ID Date Data Source [id number] 11/20/2020 02:24:00 PM EDT [facility] ([facility] Name Value Range Interpretation Code Description Data Anu rce(s) Supporting Document(s) CBC W/Automated Diff Laboratory test result [facility] ([facility] {SOURCE: Random Void~NURSE COLLECTED? N Is patient fasting? N Is patient fasting? N WBC 6.0 10^3/uL 4.2-11.0 [facility] ([facility] {SOURCE: Random Void~NURSE COLLECTED? N Is patient fasting? N Is patient fasting? N RBC 4.91 10^6/uL 4.50-6.30 [facility] ([facility] {SOURCE: Random Void~NURSE COLLECTED? N Is patient fasting? N Is patient fasting? N Hemoglobin 11.7 g/dL 14.0-16.0 Below low normal [facility] ( [facility] [place] [facility] {SOURCE: Random Void~NURSE COLLECTED? N Is patient fasting? N Is patient fasting? N Hematocrit 38.3 % 41.0-51.0 Below low normal [facility] ( [facility] {SOURCE: Random Void~NURSE COLLECTED? N Is patient fasting? N Is patient fasting? N MCH 23.8 pg 27.0-34.0 Below low normal [facility] ( [facility] {SOURCE: Random Void~NURSE COLLECTED? N Is patient fasting? N Is patient fasting? N MCV 78.0 fL 80.0-94.0 Below low normal [facility] ( [facility] [place] [facility] {SOURCE: Random Void~NURSE COLLECTED? N Is patient fasting? N Is patient fasting? N MCHC 30.5 g/dL 31.0-36.0 Below low normal [facility] ( [facility] {SOURCE: Random Void~NURSE COLLECTED? N Is patient fasting? N Is patient fasting? N RDW 13.7 % 11.5-14.8 [facility] ([facility] {SOURCE: Random Void~NURSE COLLECTED? N Is patient fasting? N Is patient fasting? N MPV 10.8 fL 7.4-10.4 Above high normal [facility] ([facility] {SOURCE: Random Void~NURSE COLLECTED? N Is patient fasting? N Is patient fasting? N Platelets 258 10^3/uL 150-450 [facility] ([facility] {SOURCE: Random Void~NURSE COLLECTED? N Is patient fasting? N Is patient fasting? N Neut 60.9 % 37.0-80.0 [facility] ([facility] {SOURCE: Random Void~NURSE COLLECTED? N Is patient fasting? N Is patient fasting? N Lymph 22.9 % 25.0-40.0 Below low normal [facility] ( [facility] {SOURCE: Random Void~NURSE COLLECTED? N Is patient fasting? N Is patient fasting? N Baso 1.2 % 0.0-2.0 [facility] ([facility] {SOURCE: Random Void~NURSE COLLECTED? N Is patient fasting? N Is patient fasting? N Eos 7.5 % 0.0-7.0 Above high normal [facility] ([facility] {SOURCE: Random Void~NURSE COLLECTED? N Is patient fasting? N Is patient fasting? N Porter 7.2 % 3.0-8.0 [facility] ([facility] {SOURCE: Random Void~NURSE COLLECTED? N Is patient fasting? N Is patient fasting? N %NRBC 0.0 % 0.0-0.0 [facility] ([facility] {SOURCE: Random Void~NURSE COLLECTED? N Is patient fasting? N Is patient fasting? N %Ig 0.3 % 0.0-0.0 Above high normal [facility] ([facility] {SOURCE: Random Void~NURSE COLLECTED? N Is patient fasting? N Is patient fasting? N #Neut 3.65 10^3/uL 2.00-6.90 [facility] ([facility] {SOURCE: Random Void~NURSE COLLECTED? N Is patient fasting? N Is patient fasting? N #Porter 0.43 10^3/uL 0.00-0.90 [facility] ([facility] {SOURCE: Random Void~NURSE COLLECTED? N Is patient fasting? N Is patient fasting? N #Lymph 1.37 10^3/uL 0.60-3.40 [facility] ([facility] {SOURCE: Random Void~NURSE COLLECTED? N Is patient fasting? N Is patient fasting? N #Ig 0.02 10^3/uL 0.00-0.10 [facility] ([facility] {SOURCE: Random Void~NURSE COLLECTED? N Is patient fasting? N Is patient fasting? N #Baso 0.07 10^3/uL 0.00-0.20 [facility] ([facility] {SOURCE: Random Void~NURSE COLLECTED? N Is patient fasting? N Is patient fasting? N #Eos 0.45 10^3/uL 0.00-0.70 [facility] ([facility] {SOURCE: Random Void~NURSE COLLECTED? N Is patient fasting? N Is patient fasting? N Manual Diff Laboratory test result M EDJANICE ([facility] {SOURCE: Random Void~NURSE COLLECTED? N Is patient fasting? N Is patient fasting? N #NRBC 0.00 10^3/uL 0.00-0.00 [facility] ([facility] {SOURCE: Random Void~NURSE COLLECTED? N Is patient fasting? N Is patient fasting? N RBC Morph Laboratory test result ME DENT ([facility] {SOURCE: Random Void~NURSE COLLECTED? N Is patient fasting? N Is patient fasting? N ID Date Data Source [id number] 11/27/2020 07:55:00 PM EDT [facility] Name Value Range Interpretation Code Description Data Anu rce(s) Supporting Document(s) CULTURE URINE [facility] spital _CULTURE URINE_$$[id number]$$[id number]$$[id number]$$[id number]$$[id number]$$[id number]$$[id number]$$[id number]$$[id number]$$ [id number]$$[id number]$$[id number]$$[id number]$$[id number]$$[id number]$$[id number]$$[id number]$$[id number]$$[id number]$$ [id number]$$[id number]$$[id number]$$[id number]$$[id number]$$[id number]$$[id number]$$[id number] -- Continued on next page --Patient: PRICILA SON J Order: Page 2Culture: CULTURE URINE Status: Final ==== -- Continued on next page --Patient: PRICILA SON J Order: Page 2Culture: CULTURE URINE Status: Prelim =====$$[id number]$$[id number] DATE/TIME: 11/26/2020 14:06Culture: CULTURE URINE Status: FinalUrine Culture,Comprehensive: P1No growth in 36 - 48 hours. Previous result entered on 11/23/2020 09:53 ET No growth after 18-24 hours.P1 [facility] performed [facility]: [facility] #: [id number] [address] [place] [address] [id number] [facility] [id number] Director : Aguilar Schwartz MD NPI #:Ell Teacher : 11/23/20.1042.XMT.SENT REF 11/27/20.XMT.SENT REF 11/27/20.DW .to MARQUES JOANGAYATHRI via fax ID Date Data Source [id number] 11/20/2020 08:54:[address] [facility] Name Value Range Interpretation Code Description Data Anu rce(s) Supporting Document(s) CBC W/AUTOMATED DIFF [facility] COMPLETE BLOOD COUNT Leukocytes [#/volume] in Blood by Automated count 6.0 10^3/uL 4.2 - [address] [facility] Erythrocytes [#/volume] in Blood by Automated count 4.91 10^6/uL 4. 50 - 6.30 [facility] Hemoglobin [Mass/volume] in Blood 11.7 g/dL 14.0 - 16.[address] [facility] Hematocrit [Volume Fraction] of Blood by Automated count 38.3 % 4 1.0 - 51.[address] [facility] Erythrocyte mean corpuscular volume [Entitic volume] by Auto mated count 78.0 fL 80.0 - 94.[address] [facility] Erythrocyte mean corpuscular hemoglobin [Entitic mass] by Automated count 23.8 pg 27.0 - 34.[address] [facility] Erythrocyte mean corpuscular hemoglobin concentration [Mass/volume] by Automated count 30.5 g/dL 31.0 - 36.[address] [facility] Erythrocyte distribution width [Ratio] by Automated count 13.7 % 11.5 - 14.8 [facility] Platelets [#/volume] in Blood by Automated count 258 10^3/uL 150 - [address] [facility] Platelet mean volume [Entitic volume] in Blood by Automated count 10.8 fL 7.4 - 10.[address] [facility] Neutrophils/100 leukocytes in Blood by Automated count 60.9 % 37. 0 - 80.0 [facility] Lymphocytes/100 leukocytes in Blood by Manual count 22.9 % 25.0 - 40.[address] [facility] Monocytes/100 leukocytes in Blood by Automated count 7.2 % 3.0 - 8.0 [facility] Eosinophils/100 leukocytes in Blood by Automated count 7.5 % 0.0 - 7.[address] [facility] Basophils/100 leukocytes in Blood by Automated count 1.2 % 0.0 - 2.0 [facility] %IG 0.3 % 0.0 - 0.0 H [facility] %NRBC 0.0 % 0.0 - 0.0 [facility] al Neutrophils [#/volume] in Blood by Automated count 3.65 10^3/uL 2.00 - 6.90 [facility] Lymphocytes [#/volume] in Blood by Automated count 1.37 10^3/uL 0.60 - 3.40 [facility] Monocytes [#/volume] in Blood by Automated count 0.43 10^3/uL 0.00 - 0.90 [facility] Eosinophils [#/volume] in Blood by Automated count 0.45 10^3/uL 0.00 - 0.70 [facility] Basophils [#/volume] in Blood by Automated count 0.07 10^3/uL 0.00 - 0.20 [facility] #IG 0.02 10^3/uL 0.00 - 0.10 [facility] ospital #NRBC 0.00 10^3/uL 0.00 - 0.00 [facility] MANUAL DIFF NOT INDICATED [facility] RBC MORPH NOT INDICATED [facility] spital ID Date Data Source [id number] 11/20/2020 08:42:[address] [facility] Name Value Range Interpretation Code Description Data Anu rce(s) Supporting Document(s) CVE PANEL [facility] LIPID PANEL Cholesterol [Mass/volume] in Serum or Plasma 226 MG/DL 131 - [address] [facility] Deprecated Triglyceride [Mass/volume] in Serum or Plasma 146 MG/DL 3 5 - 160 [facility] HDL 71 MG/DL 29 - 86 [facility] al Cholesterol in LDL [Mass/volume] in Serum or Plasma by Direc t assay 143 mg/dL 65 - 175 [facility] Cholesterol.total/Cholesterol in HDL [Mass Ratio] in Serum o r Plasma 3.2 3.4 - 4.[address] [facility] LDL/HDL 2.01 1.00 - 3.55 [facility] CVE RISK CHOL/HDL LDL/HDLMEN: 1/2 AVERAGE 3.43 1.00 AVERAGE 4.97 3.55 2X AVERAGE 9.55 6.25 3X AVERAGE 23.99 7.99WOMEN: 1/2 AVERAGE 3.27 1.47 AVERAGE 4.44 3.22 2X AVERAGE 7.05 5.03 3X AVERAGE 11.04 6.14 ID Date Data Source [id number] 11/20/2020 08:42:[address] [facility] Name Value Range Interpretation Code Description Data Anu rce(s) Supporting Document(s) COMPREHENSIVE METABOLIC PANEL [facility] COMPREHENSIVE METABOLIC PANEL Sodium [Moles/volume] in Serum or Plasma 140 mEq/L 134 - 153 [facility] Potassium [Moles/volume] in Serum or Plasma 4.1 mEq/L 3.6 - 5.0 [facility] Chloride [Moles/volume] in Serum or Plasma 103 mEq/L 98 - 107 [facility] Carbon dioxide, total [Moles/volume] in Serum or Plasma 28 MEQ/L 22 - 30 [facility] Glucose [Mass/volume] in Serum or Plasma 88 MG/DL 70 - 99 [facility] BUN 15 MG/DL 7 - 21 [facility] al Creatinine [Mass/volume] in Serum or Plasma 0.8 MG/DL 0.7 - 1.5 [facility] BUN/CREAT 19 8 - 27 [facility] al Protein [Mass/volume] in Serum or Plasma 7.2 G/DL 6.3 - 8.2 [facility] Albumin [Mass/volume] in Serum or Plasma 4.1 G/DL 3.9 - 5.0 [facility] Globulin [Mass/volume] in Serum by calculation 3.1 GM/DL 2.4 - 3.2 [facility] A/G RATIO 1.3 0.8 - 2.0 [facility] Calcium [Mass/volume] in Serum or Plasma 9.2 MG/DL 8.4 - 10.2 [facility] Bilirubin.total [Mass/volume] in Serum or Plasma <0.7 MG/DL 0.2 - 1.3 [facility] Alkaline phosphatase [Enzymatic activity/volume] in Serum or Plasma 201 U/L 38 - [address] [facility] Aspartate aminotransferase [Enzymatic activity/volume] in Serum or Plasma 44 U/L 5 - [address] [facility] Alanine aminotransferase [Enzymatic activity/volume] in Seru m or Plasma 51 U/L 7 - 56 [facility] Anion gap 3 in Serum or Plasma 9.0 mmol/L 8.0 - 16.0 [facility] 40 [facility] >60 mL/min [facility] AFR AMER GFR >60 mL/min [facility] Male GFR In [...] >32 mL/min Normal ID Date Data Source [id number] 11/20/2020 08:38:[address] [facility] Name Value Range Interpretation Code Description Data Anu rce(s) Supporting Document(s) URINALYSIS [facility] g[facility] URINALYSIS SOURCE Random Void [facility] COLOR yellow NORMAL: Yellow [facility] CLARITY clear NORMAL: Clear [facility] Specific gravity of Urine by Test strip 1.020 1.001 - 1.030 [facility] pH 5 5 - 9 [facility] Glucose [Mass/volume] in Urine by Test strip NORM NORMAL: Negat [facility] Bilirubin.total [Presence] in Urine by Test strip NEG NORMAL: Negative [facility] Ketones [Presence] in Urine by Test strip NEG NORMAL: Negative [facility] Protein [Mass/volume] in Urine by Test strip 100 NORMAL: Negat oscar [facility] Nitrite [Presence] in Urine by Test strip NEG NORMAL: Negative [facility] BLOOD NEG NORMAL: Negative [facility] Leukocyte esterase [Presence] in Urine by Test strip 100 STEFF L: Negative [facility] Urobilinogen [Mass/volume] in Urine by Test strip NOR less fern n 1.0 mg/dL [facility] MICROSCOPIC See Below [facility] WBC 30 - 40 NORMAL: NONE SEEN A [facility] Erythrocytes [#/volume] in Urine by Test strip 0 - 1 NORMAL: NON E SEEN [facility] EPITHELIAL FEW NORMAL: NONE SEEN [facility] Bacteria [Presence] in Urine sediment by Light microscopy 1+ SMALL NORMAL: NONE SEEN [facility] Mucus [Presence] in Urine sediment by Light microscopy Trace NORMAL: NONE SEEN [facility] ID Date Data Source [id number] 11/20/2020 08:29:[address] [facility] Name Value Range Interpretation Code Description Data Anu rce(s) Supporting Document(s) Creatine kinase [Enzymatic activity/volume] in Serum or Plasma 1 18 U/L 30 - 170 [facility] ID Date Data Source [id number] 11/20/2020 02:16:00 PM EDT [facility] ([facility] Name Value Range Interpretation Code Description Data Anu rce(s) Supporting Document(s) Iron 28 ug/dL 42-135 Below low normal [facility] ( [facility] Iron Sat 6 % [facility] Tibc 432 ug/dL 250-450 [facility] Uibc 404 ug/dL 112-347 Above high normal [facility] ([facility] ID Date Data Source [id number] 11/20/2020 02:16:00 PM EDT [facility] ([facility] Name Value Range Interpretation Code Description Data Anu rce(s) Supporting Document(s) Ferritin [Mass/volume] in Serum or Plasma 14.5 ng/mL 5.0-244 [facility] ([facility] ID Date Data Source [id number] 11/27/2020 10:28:[address] [facility] Name Value Range Interpretation Code Description Data Anu rce(s) Supporting Document(s) Iron [Mass/volume] in Serum or Plasma 28 UG/DL 42 - [address] [facility] Iron binding capacity.unsaturated [Mass/volume] in Serum or Plasma 404 UG/DL 112 - [address] [facility] Iron binding capacity [Mass/volume] in Serum or Plasma 432 ug/dL 250 - 450 [facility] Iron saturation [Mass Fraction] in Serum or Plasma 6 % [facility] ID Date Data Source [id number] 11/26/2020 04:45:[address] [facility] Name Value Range Interpretation Code Description Data Anu rce(s) Supporting Document(s) Ferritin [Mass/volume] in Serum or Plasma 14.5 ng/mL 5.0 - 244 [facility] ID Date Data Source [id number] 10/03/2020 04:45:00 PM EDT [facility] Name Value Range Interpretation Code Description Data Anu rce(s) Supporting Document(s) Follow Up [facility] UCUEEc3eNdNYTxStRTOwWeqIXJvaSCmcGQEfD5Q5IBynCj6QAUlakhJzLGLuGj7+HSVdBN6owi1nVYFx gMy [file] XoZQ/0NGfL0kGOg1zTuaTfmxzFqxqnk8agOUVvAilIhlvN8L3u/Music Video Producer/zrTpkeja0gVbvSAB3dPiws5jba [file] XGxsUYHHF5voQzV6pr7uQFpfnUycknBfV6eL4ahgJ4EG83U/BryWMCqOJcLapi2PKHK8DWTB5Dvmv/Margarito RDaMNFXd2rsP9p+LXdGazOdImORylGQ2kXBYHdsWGL d7hE6e93uWq/GeUcpQewr9KpIQNYx9y0rKgE6X/1jkfQmN+VV0/1h8M8nfZ0m1cbqSTrlaPlWXR2aULq bI5c3/sxW7xGeYzH2/g+SQQzBft5v7YTZDWx1NfvMufuBzX2gAiIEvnRaMaDUsIu5Q/3TmBiUDa952gC V1rsgOaPt0ZmuIYGhHQ9TM2W9mdDg+hub cutter apprentice+02hRpZNr [file] tHl0BSWFgM1qMgq2B6WJSH/oZFSh/blood bank booking clerk+voaIKldkuMza9oImOBTC/ZiZYDwQ+W3jhNwytdC10rc3i4A [file] director of creative strategy [file] PQhzXwPXqU001+2qsruGdm6/+M4BmVBS2pV9UoXWK/NRz8FKS9Pb1Hb9tVEr53NcEc7+Revenue Cycle Administrator+9Phv6Vb2/ [file] Abdifatah/UGoGz5/EquDGz55/6nJuoLSy11lcp3DtgYdQB4j8y/17P47dQmy08rgUQUDAoJ/diesel automotive technician+TzcEa9Ef0J [file] Iu3TxgYcS/uvjFxhAdE3c8ErEiN+rzMZPjZzrMH/Naseem VThf+6ZVZEw8qAIPmO1sjO33WwlcOKbc3XSJIfCUAfEGHsp32YX3rX9QytJh5pWXzI1R8z7gsep419/j 49fWd9MElVnyVxaAp8J9K+5E57MsxmTDBWNGaRwBgtW7NumhOQRKeXKRWkO8aFdZE0SoYMaq0bpr7+WT FumMMEPk0L2h/ma4mv2JwGaIBoZDVbBIUqaiFsNlu4 OuCEPyFX/wlm7X5p6BkRykmmv7x/t/+GbqqisjR6tiJg63Vlk89s0dI2WlMBV1l07DJJ6jyn+wwg7G2n H3o3dP6ZXUir+FBo9jftJf6fHRRB4A2OT1JamUGHOXcHjut53U1DYhlLN8e1q/8fnmlnkzQbefzl+l1A kADBPLfOFpQ534FIiwws+RB2+rs5Mfo6KPPuL82jHi 17WK9ZcNx66t9vON7lkfyUUZaarO8lcGZ9y+ORzBSWbOKNr3UhX+/uN5nM89r4AWgaIrxoo0XqiENgDt gw04R0CSYFBFW5ZcAbk20FZ+s6itjv2NzXbd7ZazDcmfogTfojB1HD58vJ196a9ckRFQW51fFgdj/GtL mKQRJeGlazOB580AO6ZLAqwuuhAIGGWq6zptjlNb7L lKvEsvR9zbQe5wDsmyd04mioWxojoaqJPa5DQ6lr5uA3DpnUxcJdej7Sa//w+AxSCcdFxxLpzJyUXFo1 pKaYITDz6ejknu7CV5GwguM/JsgnJRI6/cxr7+L5gkcLPO4wR1qfF7UtP+OvVYA9W23kvqzlpDvJXlJk MNV8Kq+0CJfctarqAvRwLzQPkDgJeYVrh6tq2nOX5P olvkDCeox9PP9S0beQKurlmDhTcLrg0n5j71PAQu6Ipu8X6+Jc3uJgYe+Kq1eWdsPvK3SCdVnjn6x0Sb j9/a8gYSGDhKA1o6FuFhfThffxxvKeEXC1UeYp6KUZJMY6VG9TRg/8yLJCjI3rZ4qrWSm2RE+Barrera+Xqrk nS5c7Kk6QWwDG+uHK6FhjKR5dlVHWfl+WKI/IbwkSE qcDYyi07wRs6g3vFVi738UnAdaxM7J4wjhQ1wOMnriZwN7axgObBts0oSJg3+O0m9vm4wmpKChPQB7cp F+cg+37v3JEf7aKh1nYG2Km/RgSEfXP3fG7Rd6qi27WNrYjtFmWz/GniOVvvK3H9X25yQntbMfHRF2oC /1W/gyjvKaF0w/lt+FVv4Tun8wkOGpA8fCDvvEA/jL o1Dis53IMPn7ulHcOsKUe3MjSnbNp79pWoK5RizsdgiJJ7bciv1Pn75Hlo1Uaozrt/cQpijuCXJBE2nt bYsRO/CqQGpA1tx64lqQ08Ez+53yJmr1sCvw1FNUXTUe06831QwcqcS379vMnZK7bJTahF+Af4unpsJt 3czOPVdhJuFf8WlvjoWSXa/oh80JtP8H9yGh6h/IGNACIO cIlwbwZi40f8ZohsZN+xHZIbnr9jb95VNOc61Uv14hmoYkQ3sx/8+pSZFlX3anLQpc2UwwCIkHzc5DtY 28tpsZLIAgQCDfkrmV5XVFVvErlXvgBI3bBnTDae+LAk5i6bRbFZ1K/jEMwPbeyKhFudWserwxyOC0+z ZKtHzTEE19pvmJoMVC+yi9glaRnfIqCf6DZ/qRqlfl +J23xRtz5Gi1ldL/SDwkYjGFa+dxdXQbGeo+rgFvlgcZPARi3TFi0ZL4V1Uc7ZMdR0X2oW1/QpM7wk++ RP08st+p/Yi9w2Mef/dA/6XWGNGD/FNq6uwhEIcG9rWXzaG+/3N6aFvO7pex/xQ028CRaM/IBjVY7eJn [place]+GJt60BRWzBbl3OdcLwN9mvivOdyBxtY+UOdwAC [file] hqrZ+F/8QyiB5b9HHDKmPEBBuGP5PMEY12hY9O [file] D9x7WUbMKdKqVktDfCqbWQCWdwVXWmb7Fuawp+1u/pCMcKlqakr02M4/TyrAYsAVu9S5m9yWtwqo+lumber sales supervisor [file] hn0CkLWWF9euGQJR9DS4ayDcHBI8hzHWB9gSCOJW+OM3/Luís+/TTLpIz3ZDN0ray27JtjP+m6+6YVr+G8 [file] Ysd12cR+1WgA4kP2cx1x8f/LUÍS+WSxS8qKtZO84h3Zj [file] O/g4pr07WQOHWPod2u+16Azymsm6ZT9SQtyx9Y3PoJWGxat1XtBx+OPERATIONS PROJECT MANAGER/TpK2C9+MZP/Ka+C5r3vCa0kf brNb5rllL7Z5yuD7zNKvfjDrFOjz9PJ3rKoKMk1mU2 ChfMGHSyNIHDglcXuPx8kc/9Q4kXRF4EisKRcnKQd5PYjR7SuTWmVa13kozv6hLGGoCM/gx6r9+04Si1 uzLzipjs131pB7vMBc+ncRBEcawf8DvvI5Pe+y/D7viPTv5Ux7VAkQxV3HulLlqbD4CKQ+VxEkXep/SS 26rFfxg8YG8xQ+9h9kI+yJtKq4f9mtW+Mala+zKA3Lm [file] 7Y/Knf1G7MudasWpY2hA9DeKWLS3D3mBsb4Vu08fGJbJyClvDj7csk0Sxnd0W1SjLGjJrdYz2wm9/market survey representative [file] SIfDo2NCPFzSkjv5K1ykcnlfg9lSmzdH1KCJFV+craps dealer [file] Vst6ka97Rn8c3KHb4Ajd50XA+histology manager+KbYUIif4k1+Dl [file] UOdcnvCgTflSXLpfoJGsbWjkIFRYQgynDOCzYW3ANTVJQ7Q= ID Date Data Source [id number] 09/27/2020 08:05:00 AM EDT [facility] Name Value [...] high normal [facility] ID Date Data Source [id number] 08/14/2020 02:41:00 PM EST [facility] Name Value Range Interpretation Code Description Data Anu rce(s) Supporting Document(s) Written Authorization Laboratory test result [facility] ([facility] Written Authorization Received. Authorization received from BRYANT MERAZ MD 08-16-2020 Logged by Юлия Lema ID Date Data Source [id number] 08/14/2020 02:41:00 PM EST [facility] ID Date Data Source [id number] 08/14/2020 02:41:00 PM EST [facility] Name Value Range Interpretation Code Description Data Anu rce(s) Supporting Document(s) Glucose [Mass/volume] in Serum or Plasma 83 mg/dL 65-99 [facility] ([facility] BUN 12 mg/dL 6-20 [facility] ([facility] eGFR If NonAfricn Am 116 mL/min/1.73 [facility] ([facility] Creatinine [Mass/volume] in Serum or Plasma 0.75 mg/dL 0.76 -1.27 Below low normal [facility] ([facility] ) eGFR If Africn Am 134 mL/min/1.73 [facility] ([facility] Sodium [Moles/volume] in Serum or Plasma 144 mmol/L 134-144 [facility] ([facility] Potassium [Moles/volume] in Serum or Plasma 4.1 mmol/L 3.5-5.2 [facility] ([facility] Urea nitrogen/Creatinine [Mass Ratio] in Serum or Plasma 16 9 -20 [facility] ([facility] Calcium [Mass/volume] in Serum or Plasma 9.1 mg/dL 8.7-10.2 [facility] ([facility] Carbon dioxide, total [Moles/volume] in Serum or Plasma 26 mmol/L 20 -29 [facility] ([facility] Chloride [Moles/volume] in Serum [...] 39-117 Above high normal [facility] Aspartate aminotransferase [Enzymatic activity/volume] in Serum or Plasma 45 IU/L 0-40 Above high normal [facility] ([facility] Alanine aminotransferase [Enzymatic activity/volume] in Seru m or Plasma 71 IU/L 0-44 Above high normal [facility] ID Date Data Source [id number] 08/14/2020 02:41:00 PM EST [facility] ([facility] Name Value Range Interpretation Code Description Data Anu rce(s) Supporting Document(s) Erythrocytes [#/volume] in Blood by Automated count 5.50 x10E6/uL 4.1 4-5.80 [facility] ([facility] Leukocytes [#/volume] in Blood by Automated count 7.0 x10E3/uL 3.4-10 .8 [facility] ([facility] Hematocrit [Volume Fraction] of Blood by Automated count 43.3 % 3 7.5-51.0 [facility] ([facility] Erythrocyte mean corpuscular volume [Entitic volume] by Auto mated count 79 fL 79-97 [facility] Hemoglobin [Mass/volume] in Blood 14.2 g/dL 13.0-17.7 [facility] ([facility] Erythrocyte mean corpuscular hemoglobin [Entitic mass] by Automated count 25.8 pg 26.6-33.0 Below low normal [facility] ([facility] Erythrocyte mean corpuscular hemoglobin concentration [Mass/volume] by Automated count 32.8 g/dL 31.5-35.7 [facility] ([facility] Erythrocyte distribution width [Ratio] by Automated count 16.9 % 11.6-15.4 Above high normal [facility] ([facility] ) Platelets [#/volume] in Blood by Automated count 239 x10E3/uL 150-450 [facility] Neutrophils 57 % [facility] Eosinophils/100 leukocytes in Blood by Automated count 7 % [facility] Lymphs 25 % [facility] ([facility] Monocytes/100 leukocytes in Blood [...] Automated count Laboratory test result [facility] ([facility] Immature granulocytes [#/volume] in Blood by Automated count 0.0 x10E3/uL 0.0-0.1 [facility] Morphology [Interpretation] in Blood Narrative Laboratory test result [facility] ([facility] ID Date Data Source [id number] 05/08/2020 10:45:00 AM EST [facility] Name Value Range Interpretation Code Description Data Anu rce(s) Supporting Document(s) EGD [facility] AUTYNd7bWeMNTqGrCREnNdaFESarSHadEOVwL8U1NAmbZf7AUZwzovChPCYpSy9+TMNfOT5vtv9zAKUf gMy 7xVXCqLovwC7FmRKIcp91TFMZyXTtVLqXePcJmHZUaSJN0PgB0ZDQ3GjHmQxbiKI3gWZD4CFRqGIpoAH CcOBWkLKAxQIqaWm3jEJupQEjoGk5HIE0lx2SgCQYhYDRbCgiHKJdcRJnxKGDiNWUkGHNsQ921irMfTo 1LjIKbICc2HFXrHrC9PYKnGuH4SVGdFv6bAjXzu1Bo R7LqWOu7H5qHRhnlT2ZaNDnjIN3uVXH3HRHoOz5VkFiaBTkmBWLCJ1hrVuIdIDLpVHTYRf7+Pj4+DWVu NS6kej38RPJdy9KzDTw6B1S1zVKcM9IiS1DoIKQgwCFVy1bwPuQqKXX9JIYdHzstTO1UZVAlqBDhXWCj VEjlYR6vfcTuhQN8FS2ClBjrLFOmRHJVNm2+Pi9QYX RtmsYdFrEzISDsZ30mfPDpjMFgVqppGQKNRR4+PMWvIY0kbc75CBWys0YaARp7U4papfd3sFIeIjB2FJ ZzKxEqDIWfUU2aMI3TgSK0hQCsCP6EeIWbGR9OcHDsUI0SM5CcJOW2T3HohSSxagScH9EtRBNnITQeb0 BgHU6UU9IVFVGdOCFfI6IqaN6bW9GrA9ZpI6Bvwjjn VNDLJx5GtVM1rDJyYKObU5ajwKpauURlCAajH6NeiBWWHWJSr58bw62mjuPrHH4+d3ClHCMmYQa86in4 ZVAcX/nnUECFJnq3JIyoMYDqXcAFjx5sS7kxTdT5NDq6MfeyvEO8E4cOsJFM6//savz1ang4hx/eD+/z 5NAFew8+e9fb0nNx2pDd7SZTSCfgVNCMzJXELTIR40 yqgUk1TLecjSbnmLfB+DTyHHWYyIScu5kV8C3Wz9AXwfLmFmK02+Fu1wkw5wcg4eAs0+Lm/ZbfTS2tb8 ZHQyfGwCDmfEv+lvP/QQ34CAasvKedsaZCZfCHAgPPY+OaJ4OGGLWxFmpSRB5zEDxSLyEyo0Fgi4K0UZ CPDXiFAAS+QgQiISEi/u31+bpOVUJUbg4C3GESH8iJ [file] dPelnaTUQZCaHqU+KWBdahAnE7QTawMoo56wzD/remote advisor [file] Revenue Cycle Administrator+ON7d2tZGgroF6fDfS8QkCaaBSgQPF5Tw/xpp68v [file] zcm1lZZbV5TVkhvf9nTUfx7P8+[place]+Y4GjD/XgVWhyRPL+GxphXdXfpUXfQ/DmOqn1ih6AZ6qnuZcsr2 [file] gICAgICAgICAgICAgICAgICAgICAgICAgICAgICAgICAgICAgICAgICAgICAgICAgICAgICAgICAgICA gICAgICAgICAgICAgICAgICAgICAgICAgICAgICAgI VBiAWGwZQCfXNJaUIRqGINwPRBzEDKvXINfFIVuGILtUZPiLAQeUVEeYBE1N5AmyWzzl9lae+0nBp0NT U2SFQXrkSLv1+GF6aIFJ483vo6VimykqJ5VY5NAk+D2zw/r72HLFME0zhXnammMoSdKGj3TJFvTUlwNF FPq122wqORNMD9i6vsojjpoTPFEcZq7AoCqKDyLUDV pZPVcOGF9CIBeejVE60H9/12TZ2tHZFKqvuAqAX9vzpcAnRfweS5K7CJQE/Xk39AM2lLo2vwqKESS/52 kA9io1zT943dLPk9vdFGV87Fzfn7UcB2uCm9kWqAHPjBs8INiPdjIScvXN//MT0by2i8nVfNGvCFXJrj teHx5VByviEgZecxzOPc2MRO5pat83cR/OxhUfnWbb 6QA2XSzgovgnq71+gHSYYTG8uEWgsxKanFtNNlPqSNncct4ic8xnHvSzIqKrHgcfHRzUyyfJWkMTOsjm fOyCHvyK2cMntOu59fz1FA+B1/c5z4VkLxKNOXHxD+9diKlv/HWu7jf5wHxZpMD0LNKB1MVnSuPkVJaS xl+AbZT+GgQreSDrtsd5dIp56iYtDBzi160+PedWUT /W9xNT8o0wfGWauNQcM/addWY+WC2Y8zrf7clbrlVMKSZpSewPis+0zGEtvJop48+o00gVjeYOcCibCZ 49J8qvNeIr2heli7Hy6qBBDgnWWN0Dyq4xpQsiKvcoT/25fK42rYpqJrQni2SWG1aqnFYIfw5ww0qTQA ZknKf0sS92PkerqCLxdDDDZA8BpOg1JGRRxo05/Gwen gi3/m5RkLOpq7QjUNoD8DCjgeB2n8S5zaYd0+3Kh/2yTHG702tR9DpKqr6dQXv+1hNXdg3y1GEV9WYG4 cPxg/WtTPxgagSQTrVhXdKvoYdiS/VyZYOuYgyNZZv+UxN7sXL9sezZbbd+jFWpYv61dQxn39hQYT529 4vm8GeUKb7YBfSIe5qVFmhNYfb+X5dkOKgJDWsQ+Jv MFRuEJrcGI1vYOtr227amuYMuX5z9g6tR+GJwO9W11YB44xNeWyw+Lu2+HSV8cRTa238EmeSsuNMNSYG QKrtH3COhnljtJcPczH09MeR2XtF+knnxtX925eQRECE5VQkOAO9lNN1EyBxH7XfiKH4+VG3Dd9oWc3j rflAJAmsHWzZ+THWqzH1J1xM7SCTyha9nJfgyhDPzS 2E0AI5G1SJ5l72/kU9p2l7D9BVx5UehdLnNxCQOZuRzKxBsOGlqQFuQBos7Hg/N0IpFhSXH3IkEwHorT ovb5rrut0OYTFjR8jBhpv1HkMHEZRskaXwwO2xhi6rpY9iCrfH/x8lUuJgnRHzpr4becfKcxzERlAmWc fEW8ZexvNyi2pHhQtiIT2W90/z6m20gW8kSsrFM6wb 1fQty/r8viBZgkhna+Vof8u0upZZzQOrLMPnYw68h3u53qR1bCkjtHQrLt3wlh3leJZUSch/QPfkjzo0 bo395pOVgKLwgfUsg7xua1Z0HtAR6lRavXK3bClHE9ROyYaXhEoThoF4oh9F1UhguycZLD5s3eQRNV27 OvqhsB4zlzJcrfsZNf34JD169O+u5qg03UfPcTNxAf rh1s6iZBoP8Mqu/3EatugoPxlJCQf81xglu3GPj0jf+gFS30GxBdU3PUbgczuN6wDsBwx2IOgZTBHAXz kx9kwwlGa6XXZLWeabd0juDNRZp/0ijD9wuX6qg7IwFdrrU6wkJyZpZ+mMnlirafkA2GzPggneVllFp4 hM7eEebburEhD/nurse research/tOyHUs9Z8uccoyC32IXnQ4fI [file] 6NSHMUt3VoDfpF95yepHaCfAc0hj9CO98W8hvT10FGQoP1IA1lu6p8mxKE4vr+[place]+[employer]+dZxwjPAph0s [file] DgRoU3kYTWHomReylID9D8WfKK8WRNn/oPfvCD/barrera+z/0PHC1MmL8RIU2ou8GhPFUsZGDtAC1hfx7qQl DiMZ6mnt62NZ6YTD0pcEblJrT+WhK0vmCjqX5CmYg4 EEDcLLSlGKz4AiWcOKHdU19FK5idXbZjWI0JAW9KDG9hb4TaQPUsEBScFM1wqw3hDoYnIH0zpr44ZU8A yXy4XXZsM0AeLROdAWGnl6ZyI3svrvu3xGA1SC5IIWOkOBWlYMNYWWJ6G9NoTbLDVnePPlG0UXS6EpDN FOSNRCI5OqS1VQWEZQX2EoS4AbA8EeP8FCPmNDI6AH blAuI5PqR9RGN+GB4Jn565CLBiDSSCE8peJc1dGbHkKXAdJ0b4TPBiIZ5ShSGrZE2TExQeD1izTpKrCV AxXT4+m6HpYXCsNEb39fNwJHBbWKACyzxi5dQTkdWKwEUq0iRCHB41IwFCNSGxXRZKnadQMpbUsX0e2y yVXSAkNKUuLWePXVmrveJmrGWsSV5LCqEiPG2azq1DCtP6STP8gSDiAd4ZOUUuJbJ5HEieJZRCAm== ID Date Data Source [id number] 05/03/2020 09:30:00 AM EST [facility] Name Value Range Interpretation Code Description Data Anu rce(s) Supporting Document(s) SARS coronavirus 2 RNA [facility] This lab was ordered by [facility] and reported by [facility]. ID Date Data Source [id number] 04/25/2020 11:26:00 AM EDT [facility] [address] [place] [address] PHONE: [phone] FAX: [phone] Name .................. : PRICILA Cevallos Acct Number.................. : [id number] ROOM. ................. : MR Number ................... : [id number] Stay type ............. : O/P Discharge Date......... ... : 04/24/20 Admit Date ......... : 04/24/20 Admit Phys .................... : CHELSEY Watt Date of ....... : 1980 Family Phys ................... : MARQUES LENNON Phone .................. : [phone] Age ................................ : 39 Film# .................. .:[id number] Sex ................................. : M Unsigned transcriptions are preliminary reports and do not represent a medical or legal document CT THORAX W/CONTRAST [id number] COMPLETE:04/24/20 10:45 [facility] [id number] (REASON FOR CHEST: SOB with widened mediastinum [...] of administration: Intravenous Page 1 of [address] [place] [address] PHONE: [phone] FAX: [phone] Name .................. : KIMMYANGIEVILMA SON Ban Acct Number.................. : [id number] ROOM. ................. : MR Number ................... : [id number] Stay type ............. : O/P Discharge Date......... ... : 04/24/20 Admit Date ......... : 04/24/20 Admit Phys .................... : CHELSEY S Date of ....... : 1980 Family Phys ................... : MARQUES LENNON Phone .................. : [phone] Age ................................ : 39 Film# .................. .:[id number] Sex ................................. : M Unsigned transcriptions are preliminary reports and do not represent a medical or legal document CT THORAX W/CONTRAST [id number] COMPLETE:04/24/20 10:45 [facility] [id number] (REASON FOR CHEST: SOB with widened mediastinum Electronically Reviewed and Signed By Kaci Forrest MD , 04/25/20 11:26, KGG Transcribe Initials: SSR, Transcribe Date: 04/24/20 13:48, Dictation Date: Copy for: CHELSEY MELARA via fax Copy for: MARQUES LOUISE via fax Copy for: [address] [place] [address] REC Page 2 of 2 Name Value Range Interpretation Code Description Data Anu rce(s) Supporting Document(s) ID Date Data Source [id number] 04/17/2020 12:20:00 PM EDT [facility] [address] [place] [address] PHONE: [phone] FAX: [phone] Name .................. : PRICILA Cevallos Acct Number.................. : [id number] ROOM. ................. : MR Number ................... : [id number] Stay type ............. : O/P Discharge Date......... ... : 04/16/20 Admit Date ......... : 04/16/20 Admit Phys .................... : CHELSEY Watt Date of ....... : 1980 Family Phys ................... : MARQUES JOANGAYATHRI Phone .................. : [phone] Age ................................ : 39 Film# .................. .:[id number] Sex ................................. : M Unsigned transcriptions are preliminary reports and do not represent a medical or legal document CHEST 2 VIEWS [id number] COMPLETE:04/16/20 16:36 JUANITA [id number] (REASON FOR CHEST: SHORTNESS OF BREATH CHEST [...] considered for further evaluation. There is a [employer] shunt present over the right hemithorax. IMPRESSION: [...] for: MARQUES LOUISE via fax Copy for: [address] [place] [address] Page 1 of 1 Name Value Range Interpretation Code Description Data Anu rce(s) Supporting Document(s) ID Date Data Source [id number] 04/16/2020 11:20:00 AM EDT [facility] ([facility] Name Value Range Interpretation Code Description Data Anu rce(s) Supporting Document(s) Comprehensive [facility] Laboratory test result [facility] ([facility] Is patient fasting? N Sodium 140 meq/L 134-153 [facility] ([facility] Is patient fasting? N Potassium 4.5 meq/L 3.6-5.0 [facility] ([facility] Is patient fasting? N Chloride 104 meq/L 98-107 [facility] ([facility] Is patient fasting? N Glucose 83 mg/dL 65-110 [facility] ([facility] Is patient fasting? N Co2 28 meq/L 22-30 [facility] ([facility] Is patient fasting? N BUN 15 mg/dL 7-21 [facility] ([facility] Is patient fasting? N BUN/Creat 19 8-27 [facility] ([facility] Is patient fasting? N Creatinine 0.8 mg/dL 0.7-1.5 [facility] ([facility] Is patient fasting? N Total Protein 6.9 g/dL 6.3-8.2 [facility] ([facility] Is patient fasting? N Globulin 3.0 GM/DL 2.4-3.2 [facility] ([facility] Is patient fasting? N Albumin 3.9 g/dL 3.9-5.0 [facility] ([facility] Is patient fasting? N Calcium 9.0 mg/dL 8.4-10.2 [facility] ([facility] Is patient fasting? N A/G Ratio 1.3 0.8-2.0 [facility] ([facility] Is patient fasting? N Total Bili Laboratory test result 0.2-1.3 [place] [facility] ([facility] Is patient fasting? N Alkaline Phos 203 U/L 38-126 Above high normal MEDE NT ([facility] Is patient fasting? N Sgot/Ast 50 U/L 5-40 Above high normal [facility] ([facility] Is patient fasting? N Anion Gap 8.0 mmol/L 8.0-16.0 [facility] ([facility] Is patient fasting? N SGPT/Alt 53 U/L 7-56 [facility] ([facility] Is patient fasting? N Non-Aa GFR Laboratory test result [place] [facility] ([facility] Is patient fasting? N Afr Amer GFR Laboratory test result [facility] ([facility] Is patient fasting? N Age 39 yrs [facility] ([facility] Is patient fasting? N ID Date Data Source [id number] 04/16/2020 11:20:00 AM EDT [facility] ([facility] Name Value Range Interpretation Code Description Data Anu rce(s) Supporting Document(s) WBC 6.7 10^3/uL 4.2-11.0 [facility] ([facility] Is patient fasting? N CBC W/Automated Diff Laboratory test result [facility] ([facility] Is patient fasting? N Hemoglobin 11.0 g/dL 14.0-16.0 Below low normal [facility] ( [facility] Is patient fasting? N Hematocrit 35.5 % 41.0-51.0 Below low normal [facility] ( [facility] Is patient fasting? N RBC 4.52 10^6/uL 4.50-6.30 [facility] ([facility] Is patient fasting? N MCV 78.5 fL 80.0-94.0 Below low normal [facility] ( [facility] Is patient fasting? N MCH 24.3 pg 27.0-34.0 Below low normal [facility] ( [facility] Is patient fasting? N Platelets 253 10^3/uL 150-450 [facility] ([facility] Is patient fasting? N RDW 17.0 % 11.5-14.8 Above high normal [facility] ([facility] Is patient fasting? N MCHC 31.0 g/dL 31.0-36.0 [facility] ([facility] Is patient fasting? N Lymph 23.9 % 25.0-40.0 Below low normal [facility] ( [facility] Is patient fasting? N MPV 10.2 fL 7.4-10.4 [facility] ([facility] Is patient fasting? N Neut 53.4 % 37.0-80.0 [facility] ([facility] Is patient fasting? N Porter 7.7 % 3.0-8.0 [facility] ([facility] Is patient fasting? N Baso 1.8 % 0.0-2.0 [facility] ([facility] Is patient fasting? N Eos 12.2 % 0.0-7.0 Above high normal [facility] ([facility] Is patient fasting? N %NRBC 0.0 % 0.0-0.0 [facility] ([facility] Is patient fasting? N %Ig 1.0 % 0.0-0.0 Above high normal [facility] ([facility] Is patient fasting? N #Lymph 1.61 10^3/uL 0.60-3.40 [facility] Is patient fasting? N #Neut 3.60 10^3/uL 2.00-6.90 [facility] ([facility] Is patient fasting? N #Porter 0.52 10^3/uL 0.00-0.90 [facility] ([facility] Is patient fasting? N #Ig 0.07 10^3/uL 0.00-0.10 [facility] Is patient fasting? N #Baso 0.12 10^3/uL 0.00-0.20 [facility] ([facility] Is patient fasting? N #Eos 0.82 10^3/uL 0.00-0.70 Above high normal [facility]EN T ([facility] Is patient fasting? N Manual Diff Laboratory test result M EDENT ([facility] Is patient fasting? N RBC Morph Laboratory test result ME DENT ([facility] Is patient fasting? N #NRBC 0.00 10^3/uL 0.00-0.00 MEDENT ([facility] Is patient fasting? N ID Date Data Source [id number] 04/16/2020 11:20:00 AM EDT [facility] ([facility] Name Value Range Interpretation Code Description Data Anu rce(s) Supporting Document(s) Natriuretic peptide.B prohormone N-Terminal [Mass/volu me] in Serum or Plasma 59 pg/mL 0-125 [facility] ([facility] Is patient fasting? N ID Date Data Source [id number] 04/16/2020 11:20:00 AM EDT MEDENT ([facility] Name Value Range Interpretation Code Description Data Anu rce(s) Supporting Document(s) CBC W/Automated Diff Laboratory test result [facility] COMPLETE BLOOD COUNT WBC 6.7 10^3/uL 4.2-11.0 [facility] ([facility]) Hemoglobin 11.0 g/dL 14.0-16.0 [facility] ([facility]) RBC 4.52 10^6/uL 4.50-6.30 [facility] MCV 78.5 fL 80.0-94.0 [facility] Hematocrit 35.5 % 41.0-51.0 [facility] ([facility]) MCH 24.3 pg 27.0-34.0 [facility] MCHC 31.0 g/dL 31.0-36.0 [facility] Erythrocyte distribution width [Ratio] by Automated count 17.0 % 11.5-14.8 [facility] ([facility]) Platelet mean volume [Entitic volume] in Blood by Tushar 10.2 f L 7.4-10.4 [facility] ([facility]) Platelets 253 10^3/uL 150-450 [facility] ([facility]) Lymph 23.9 % 25.0-40.0 [facility] Neut 53.4 % 37.0-80.0 [facility] Porter 7.7 % 3.0-8.0 MEDENT ([facility] [...] 0.60-3.40 [facility] ([facility] #Porter 0.52 10^3/uL 0.00-0.90 MEDENT ([facility] [...] test result [facility] ([facility]) ID Date Data Source [id number] 04/16/2020 11:20:00 AM EDT [facility] Name Value Range Interpretation Code Description Data [...] mg/dL 65-110 [facility] Is patient fasting? N BUN 15 mg/dL 7-21 [facility] Is patient fasting? N Creatinine 0.8 mg/dL 0.7-1.5 [facility] ([facility]) Is patient fasting? N Total Protein 6.9 g/dL 6.3-8.2 [facility] ([facility] Is patient fasting? N BUN/Creat 19 8-27 [facility] Is patient fasting? N Globulin [Mass/volume] in Serum by calculation 3.0 GM/DL 2.4-3.2 [facility] ([facility]) Is patient fasting? N Albumin 3.9 g/dL 3.9-5.0 [facility] ([facility] Is patient fasting? N A/G Ratio 1.3 0.8-2.0 [facility] Is patient fasting? N Calcium 9.0 mg/dL 8.4-10.2 [facility] ([facility]) Is patient fasting? N Total Bili Laboratory test result 0.2-1.3 ME DENT ([facility]) Is patient fasting? N Alkaline Phos 203 U/L 38-126 [facility] ([facility] Is patient fasting? N Sgot/Ast 50 U/L 5-40 [facility] ([facility] Is patient fasting? N Anion gap in Serum or Plasma 8.0 mmol/L 8.0-16.0 [facility] ([facility]) Is patient fasting? N SGPT/Alt 53 U/L 7-56 [facility] ([facility] Is patient fasting? N Non-Aa GFR Laboratory test result [facility] ([facility]) Is patient fasting? N Age 39 yrs [facility] Is patient fasting? N Afr Amer GFR Laboratory test result MEDE NT ([facility]) Is patient fasting? N ID Date Data Source [id number] 04/16/2020 11:20:00 AM EDT MEDENT ([facility] Name Value Range Interpretation Code Description Data Anu rce(s) Supporting Document(s) Natriuretic peptide.B prohormone N-Terminal [Mass/volu me] in Serum or Plasma 59 pg/mL 0-125 MEDENT ([facility]) Is patient fasting? N ID Date Data Source [id number] 04/16/2020 06:03:[address] [facility] Name Value Range Interpretation Code Description Data Anu rce(s) Supporting Document(s) COMPREHENSIVE METABOLIC PANEL [facility] COMPREHENSIVE METABOLIC PANEL Sodium [Moles/volume] in Serum or Plasma 140 mEq/L 134 - 153 [facility] Potassium [Moles/volume] in Serum or Plasma 4.5 mEq/L 3.6 - 5.0 [facility] Chloride [Moles/volume] in Serum or Plasma 104 mEq/L 98 - 107 [facility] Carbon dioxide, total [Moles/volume] in Serum or Plasma 28 MEQ/L 22 - 30 [facility] Glucose [Mass/volume] in Serum or Plasma 83 MG/DL 65 - 110 [facility] BUN 15 MG/DL 7 - 21 [facility] Creatinine [Mass/volume] in Serum or Plasma 0.8 MG/DL 0.7 - 1.5 [facility] BUN/CREAT 19 8 - 27 [facility] Protein [Mass/volume] in Serum or Plasma 6.9 G/DL 6.3 - 8.2 [facility] Albumin [Mass/volume] in Serum or Plasma 3.9 G/DL 3.9 - 5.0 [facility] Globulin [Mass/volume] in Serum by calculation 3.0 GM/DL 2.4 - 3.2 [facility] A/G RATIO 1.3 0.8 - 2.0 [facility] Calcium [Mass/volume] in Serum or Plasma 9.0 MG/DL 8.4 - 10.2 [facility] Bilirubin.total [Mass/volume] in Serum or Plasma <0.7 MG/DL 0.2 - 1.3 [facility] Alkaline phosphatase [Enzymatic activity/volume] in Serum or Plasma 203 U/L 38 - [address] [facility] Aspartate aminotransferase [Enzymatic activity/volume] in Serum or Plasma 50 U/L 5 - [address] [facility] Alanine aminotransferase [Enzymatic activity/volume] in Seru m or Plasma 53 U/L 7 - 56 [facility] Anion gap 3 in Serum or Plasma 8.0 mmol/L 8.0 - 16.0 [facility] AGE 39 yrs [facility] NON-AA GFR >60 mL/min [facility] AFR AMER GFR >60 mL/min [facility] Male GFR In [...] >32 mL/min Normal ID Date Data Source [id number] 04/16/2020 06:03:[address] [facility] Name Value Range Interpretation Code Description Data Anu rce(s) Supporting Document(s) BNP 59 PG/ML 0 - 125 [facility] ID Date Data Source [id number] 04/16/2020 05:21:[address] [facility] Name Value Range Interpretation Code Description Data Anu rce(s) Supporting Document(s) CBC W/AUTOMATED DIFF [facility] COMPLETE BLOOD COUNT Leukocytes [#/volume] in Blood by Automated count 6.7 10^3/uL 4.2 - [address] [facility] Erythrocytes [#/volume] in Blood by Automated count 4.52 10^6/uL 4. 50 - 6.30 [facility] Hemoglobin [Mass/volume] in Blood 11.0 g/dL 14.0 - 16.[address] [facility] Hematocrit [Volume Fraction] of Blood by Automated count 35.5 % 4 1.0 - 51.[address] [facility] Erythrocyte mean corpuscular volume [Entitic volume] by Auto mated count 78.5 fL 80.0 - 94.[address] [facility] Erythrocyte mean corpuscular hemoglobin [Entitic mass] by Automated count 24.3 pg 27.0 - 34.[address] [facility] Erythrocyte mean corpuscular hemoglobin concentration [Mass/volume] by Automated count 31.0 g/dL 31.0 - 36.0 [facility] Erythrocyte distribution width [Ratio] by Automated count 17.0 % 11.5 - 14.[address] [facility] Platelets [#/volume] in Blood by Automated count 253 10^3/uL 150 - [address] [facility] Platelet mean volume [Entitic volume] in Blood by Automated count 10.2 fL 7.4 - 10.4 [facility] Neutrophils/100 leukocytes in Blood by Automated count 53.4 % 37. 0 - 80.0 [facility] Lymphocytes/100 leukocytes in Blood by Manual count 23.9 % 25.0 - 40.[address] [facility] Monocytes/100 leukocytes in Blood by Automated count 7.7 % 3.0 - 8.0 [facility] Eosinophils/100 leukocytes in Blood by Automated count 12.2 % 0.0 - 7.[address] [facility] Basophils/100 leukocytes in Blood by Automated count 1.8 % 0.0 - 2.0 [facility] %IG 1.0 % [facility] % 0.0 - 0.0 [facility] Neutrophils [#/volume] in Blood by Automated count 3.60 10^3/uL 2.00 - 6.90 [facility] Lymphocytes [#/volume] in Blood by Automated count 1.61 10^3/uL 0.60 - 3.40 [facility] Monocytes [#/volume] in Blood by Automated count 0.52 10^3/uL 0.00 - 0.90 [facility] Eosinophils [#/volume] in Blood by Automated count 0.82 10^3/uL 0.00 - 0.[address] [facility] Basophils [#/volume] in Blood by Automated count 0.12 10^3/uL 0.00 - 0.20 [facility] #IG 0.07 10^3/uL 0.00 - 0.10 [facility] #NRBC 0.00 10^3/uL 0.00 - 0.00 [facility] MANUAL DIFF NOT INDICATED [facility] RBC MORPH NOT INDICATED [facility] ID Date Data Source [id number] 04/01/2020 03:00:00 PM EDT [facility] Name Value Range Interpretation Code Description Data Anu rce(s) Supporting Document(s) Follow Up [facility] ZDIBQk5fTfCFPmDwJLGsKstTIWvtKQrzWTZrJ3W8RGylYj2RHNqzzpPdZHOyVn8+DIIoUR7efy5iNBOo gMy 1gQWGrQokqT0FiYOWob32VGPIbVCrIXwRlSaMhOAG3AYPhHbJ9OPU9MoAjSaglLU8eGQF9QUNbJTavET DsMMEdGVZ0OMOwMZ5mODlhSMisIt5GQY6gu5HhBOJqWPTmRbqKEFjeSOaiHSTwPQBdCNCoE641fuWsKS 4ZiMBwQWb0AWAgRyO8BVSnGiN1JAXtYaZdKmWyALRv B4Hqm226dvKgmpN3KB5YF3GgVLM2AXr6Q1tyPeGhRSWzASJaXH6iQkZ6MUNwNg2WnZogCEQhCDZjDk5Y lNo8ZTO0YNZjXw0+Pj4+Bx1jnsIeVcqQHSPwNV1osl00UN2MtQKmDH6SQRohZ68cABinVn74MBcoLIZd BmQjKNi6Md7dZtGay6KyC4MoTVn4D3qACrxzT5VhFY sdUV3iEKZ3DEHzSs2+Wy8jBVAwLT07OQCgZYYYK0CjxvNmpoXpMTs4CGRaKo9+Pz4lirQqRxnLEKObBW 9jkh83PG9KBR9mdAknZvErRUdcY59zqRQfV3doZeXrC6CpqUfkEGOvRE6sK1VgPTtbZMBfJI1nnkQawQ 7MsYn4LKZlYd7SuZA2HYFeF42jOUViAJBDUKTpr5Oz QF6Zt8dukrTsURKzQF2BFDUdD2QMQ6YsS8gyqEvxFFWnUL6LKVfkmAHkBFu3DS5PpPYlTHLkG67yoJ2y IM68QAt+EaN8pyJtcI4WmCviy3NEGZ4Whbh3hTxuI1JpoYO1IyGGcreQsQfdCMxCGBcjJWm3j5s6dvyR RjsEOXm/M+m0DDQq8UtxLq/mfaqu/KKvUgbGkq7gk/ otM6afimBJEOavDlvsVrzdHwmeZ+gYWATYWJiYWKSv3+AGTQCTO2FUVJOT5PYu2QmfgtZzRRQuHxI3wA 9IMo3dYEOUFxpKoz10BtWJu250bwQBVhJZVtC9O/GW8/0ckHGI1DXS5bFzdJVkUDMvKXFkYE06QlAJBS UFcr1W9E2LBUXpZJHJLSFYWWd/KzTgARARkJAQkZFQ [file] yY8MBK8kz7QV8l8MDEtdL7mb0N2INEp0ETBcLsLDNDMabOKZK7C1daFgFvx4+waxQpBgAFoU7Ypc/victor m [file] Music Video Producer+1hBD3lH2inUXJw0gkcTnLz3LOQMrssGWdi55VYK [file] TdLms74YalejiYsrKgwTOGhVBsU5nrKkeLlV24sBDw0Ybkb4g/VICTOR M/LHXRS1f/5lXOu6Milai3qssWGg [file] ayK4POXMGmYbeoP+RS0BIPNpxD+Luís/Rx2vZpxj2c6/whTre1vR4WsP2V167+Rpo7K7ngmctlnT1aYc5Y [file] fqE8yuPWN895vHoPbq29zF+buPhyicNdKAAzb+Luís/6 [file] Gómez+x2NNCoLHXiktLej3o0AxzCKTR8DPP6S9M0zMno uw1266GXnSWn+GPfgDWxP3Jwv75ckzzdPP/cbAdVf/0IVaZz3WXf4HhvQQ7yu4OI3TeZIx8I8t7oDD1u +oAkUsDOIRqC0YLBnQgCDJDM8leCCsyDVHYwsOVFVDe9n8c6ZYfTjrUHmmeWxKWY66rw42/z9AHZ2wHL vJqquz/sart6WEkpfcX7nz8gZsltdgxDx3XJEv1lju [file] GWf72Z95bzNiytNuHIvGOzbs32zkbSgaD45SZvaImjFDv3Va7Dj07nkZIm/yga8oKacgX02WitIe/Juan C [file] YcSiGqC5fe7OzM0PmFA8j/Luís/kfCWCG+g+hTl3Et8v Por8PxWcg3scLkYO27aFyHjAGSFBhcRWLhkKD7K6sYii0Pc3rlvoEJubXEz2b+JVD3jaxetnJIcSrKme S6HuC/7+imXabqvDCSlp5oAo5ulfG+bWIp0t1m+xDtmt+jChgSfeO0MKJd/dcefUm8EoHbjYOPnKjxLg yqs5WB9xrkOWBex4N0Bvo06ZFNqsGOs49lQtKd5/4e Vtgh+MDNfQ/Hcoyn6XuaRC3AN6fz9O5a637/XcPaI28delchyNMa153Hn7fgmnaFt1kAFmrJMxeKojla GHNvDf2ycWuz1MSlxCLfNRm4ZCCFgv3nnFAg1t/3JwiOXUyZSg09KLQnZLMxDm6NiHfWmQqAxnhr/WPg ESlGVKRj0XkI1nBQiRSFJgdDtuikxE3xFOtpIHEdbh 55vSUu6sDJE3OJsN45+BjjzkrfR8Prnaz/6TrpytiL3mAis/x99rZmQw87Qujz5SiULND6yy444LOQQg AVAPucM45Jk7dNEchHWt4ZKsYL+DFZ72FNp1uvJcE00b7K9H3d4scxcbWK3iGeVkt+CZDMNyClyS/7Tc 8XWstFIzpZkvGjnDbYFplw04GKA6Qm6/WHasPg52cf 5c+75CBoxvDlOSw7Nr5vrH3iuwc/y4uIFdppzBleE0Bpj0TOxzdmeAAoDOrWTE7d1+a36q30X6w0p/ck pMXLQxF+40pXvH1Ydo2IVSbBETgtzaB1Ql7KGFxPznl8tO5/Jx8A9CbxjsDcsI1KHpTFqM2GsXcwj2ZT yawcNptsm2pHX0HIj0ikkh21FBCMkT/wIVojPlngns [file] sr1cEOopdSkkoZL20cJBSUDVVwVTK8+LUÍS+wkEqSsnf 8eHOajyvnkdSKsTfrgyU/S/HVuJbyK4JLeV14WU6y5ZOZGK3DZoMdw8j4n6KYV9vypGWoS7a2GoDiWu8 aaLiWfts/IBSnvmxKqZQykj/LLaeBOXszVKq1iLw5LpW25IccPw6ef7WxG31RJQ4suPEzRKjLox1DhUY stpo/t8bfL4vPdrgGC0lC2549HH7hkXrZ+L/WHk36I vyWUxpeY78vw5lrGzPDo3+gSsZ2OVX1wMR/797CXC+rNTi9FycFlUOdMNTcop/bxfw50rF2kLsno4YzP IJziJ2P11dcjcXZ7eqbHpbHictSgwdfwH+chP4TDix9/y0P/FEI1/NlIBLJ447425mhUsxQrgvmNmm41 AlSRByFI8d72eAu2ZtA9nC+EvYQBTbyfhWnv2b9fx0 DIEGO+JOGutUwhOYGMhf2uPLl5Rt0IQJJ0dBT1TksEj75aqL2ckfOgtbyARsKw5QrBLUYeGXcl58q5Qyq1x [file] dq6uBGASUvvWdhVn6+Da0jtFN2jmypmvIrlHtjiY1icczJwC/+hRJoDSLz7LeewlxUTML/NKwqTIF/LUÍS rEYFc9mMJ1VixAYhBsNQcF3nzn+/c3fZ2j4tKhqCWfxNiLwHrMzCZi8lY6dM0dZByZNeTHR3/M4ET55d eeGBDk4BWe8sKSVJ0ssRdEOJX3sHyqpPq2rpz3zZ5d fvUlJx9EzxAIsQ1rUc7wQRk4f7/oDJodD38jEUnw6zSLCPDu57AhTo/pUN8ZCzhpItr3YAgKDdgSeInv QW/MtNHSykkVUlxSvrK+tfGnbBkGvPfoDYGTWX6KwGufd2t01ytHEAgxvYLMHbuGe2oE+NtBy1R5kRt6 fecSLdW0UmDDbILvJiN4wE0NeH4+0MIIzcoHbnAaNp zf1OIfroHXLIJswXGeuiAUtZPYnFwtC1ZX7bAPtcykHLqJTabdnQAroc8IRc2v4AXZzDaTPTYMqDIAP9 wnBn5ewtBqE+BnCRx10UOTWLbSBwxmyZdthfXzHw0WeDl2vl4E2VN+yvYARcwNCqbVykThTomr3etFeu 3J/HO3SBhxg0q33PS5jH8ESXzLErz+uuzUVoi7aQ/W 4760PwpcdknUZFm7qTCSlLQxvTtyjx/wuKDFEljiNbwYHzFEGQ8m1F3T89/aRHi6A9wihZBkHQykZ4dC CvaBg0bts++ppXkKjql63yo6YsNZ/r3yEc+pVNnLve5mDdZzyjP/CClQ6hfDH6VF3zlE6Vn5fEV/IB/u oyGrRjHYCv82mPtGi6NOZm7/Fz/7XJpeFFq9Hb+apq FELISA/29bZVFg46cgaqv2tEue1cXSP1JLhfnnuBTFYM4QazQxqhS5Z2TpPzXdyj8S6+s9arlLA7UpdEHVe [file] diesel automotive technician+Zec+WF8yh2waCnm+sT117/XovX8+etv8Bleov4SbdMfOy42c36R7hrHwbj/ilop7+5teMUkjcZy4y [file] 9V/R6ZzHdLNkbh+rEjeHGNz7OlLjXuvPemHLb+Music Video Producer/KYKx6nin3cS0lirafcX4fOjtRKCr8pxS2fsMeAm [file] 7LoN13CpwJb6mfwLIIf0cEenv1j1o8egR+Z5TEtZ55sX/W79G7Hb3s0HIS7iudWS1N1H7i16bWYki+Luís [file] director of creative strategy [file] Nfy6vIyZ4cXL3PNiMt8yaL5sN0ULKa/z+MF91pYU5SO32UrJRvkUydrF0/brG6xDDtQlnbVrURzf+Director Of Public Works [file] 0/Rodríguez+/Vq4G7MZaExzm45CadWbfHz1PkRtPJWA1gME qZyKXVWO78SIguzahbaHKnBiUxSCX8uwdjTcXf6kN+0mTlNLFrri7k/zP4OzeiDgddY8NJxuqVy3HDhQ +T5axKjKq38IKrNaKiZ3MCRdT3Hz8F/yuAGXd1G52dCEoWa2ASgPi8T7Oev1/S2x/cAmbSUDdhPKPqHS l0nHP26ZF5SyBoucYja0+xCcfqiY5F1rV6xNe1H3ct 7FwpfiKAQSZXT2zeFglZ5jXaeHS5aSUQQfsLT1Ckxj5prszbpsLUe0NPYoY/khu3MVAmOpb0qyklsYWW C8l/H/FocxSKzNfOVRhPNVPFSMjNtp8eOKBma0N3MphzzOXiEFoyScxyvxHq31zYdKgFEgwzMNFIEo/5 HFcy5dWyzWD317BXLQAOCZJP7dhSR8BjXXypdZFCjO BB2fC0FlHvQ2x7RorNdPqgMApYQwVQobB+NhMX90J9e4dhlGEoEqQdzx4krneZC3LOUdHMvIKDpE14MO j941NWwpEzZTIu4XMmmexVaf5pOxWGZL+n9zgzpwwWbAKZARBWeDOnfgeZV5wu4GaLo8EebJhb1HnpYn Tamar/udEgdFcObkMbJfVNHUTSQYOstPbKu1uD7C3ZCu [file] auto driver+ppCCbVq5yYxDV3f0F5E5ZNpWSv+84/u3n1dvjke [file] Joshua/NEUPMA4T5PX0xWVh6zjiP2w8Xqfd8xswUNQkiIP m9SAAswKOjd8EgjPCZl3LG82W1Mdy/3z9EbK+QXW+/sIXAuxou0HOVf1epXGgDumE0WTTJn/iB0fjiOz etVpH9/tlIqRhB4dU48aLMh3aYR7tpXD9EptifpwefprEdnFLallys8scpFVug+vcx33sdmKrM1jpgoG w2Zs2i5kTfmr2WbMv8ImYJXiV413maJ7BdQR86q6nb FADce4ySrYGA8thnzdmghbjRKQtJx6PzNowQvKUIp3bZq/pH87iuzm+HEAD OF MARKETING ADOMETRY/bZtjsNnDyu1iWFneWDtlH [file] SX7paF2xzs9Ezj33zaz/1S9k8mn/n87F1kYkX0XMNrsztrAY0J2B4oIej9QVIJylbTF8d3w8/9eZE/luís [file] NySYnjdu88m4/contact center rep+JAEkGOe2d2r9yTbJWrvrdueY/ [file] [id number] ID Date Data Source [id number] 03/26/2020 08:05:00 AM EDT [facility] Name Value [...] complet ed Never Smoked A Pipe MEDENT ([facility]) Smoking 11/20/2020 12:00:00 AM EDT Patient has never smoked co mpleted Patient has never smoked [facility] ([facility] Smoking 06/13/2020 12:00:00 AM EST Patient has never smoked co mpleted Patient has never smoked [facility] ([facility]) Vital Signs ID Date Data Source [id number] Name Value Range Interpretation Code Description Data Source(s) Systolic blood pressure 130 mm[Hg] 130 mm[Hg] M EDENT ([facility] Heart rate 71 /min 71 /min [facility] ([facility] Respiratory rate 18 /min 18 /min [facility] ( [facility] Body mass index (BMI) [Ratio] 31.7 kg/m2 31.7 k g/m2 [facility] ([facility] Diastolic blood pressure 70 mm[Hg] 70 mm[Hg] [facility] ([facility] Body temperature 97.2 [degF] 97.2 [degF] [facility] ([facility] Body height 64.25 [in_i] 64.25 [in_i] MEDENT ([facility] 5'4.25" Body weight 186.00 [lb_av] 186.00 [lb_av] MEDEN T ([facility] [place] body weight 130 [lb_av] 130 [lb_av] MEDEN T ([facility] Oxygen saturation in Arterial blood by Pulse oximetry 96 % 96 % [facility] ([facility] Body weight 182.00 [lb_av] 182.00 [lb_av] MEDEN T ([facility] Body mass index (BMI) [Ratio] 31.0 kg/m2 31.0 k g/m2 [facility] ([facility] Systolic blood pressure 130 mm[Hg] 130 mm[Hg] M EDENT ([facility] Diastolic blood pressure 72 mm[Hg] 72 mm[Hg] [facility] ([facility] Body temperature 98.0 [degF] 98.0 [degF] [facility] ([facility] Heart rate 71 /min 71 /min [facility] ([facility] Body height 64.25 [in_i] 64.25 [in_i] MED[facility] ([facility] 5'4.25" [place] body weight 130 [lb_av] 130 [lb_av] MEDEN T ([facility] Oxygen saturation in Arterial blood by Pulse oximetry 98 % 98 % [facility] ([facility] Systolic blood pressure 128 mm[Hg] 128 mm[Hg] M EDENT ([facility] Diastolic blood pressure 72 mm[Hg] 72 mm[Hg] [facility] ([facility] Body height 64.25 [in_i] 64.25 [in_i] MED[facility] ([facility] 5'4.25" Body weight 187.00 [lb_av] 187.00 [lb_av] MEDEN T ([facility] Body temperature 97.5 [degF] 97.5 [degF] MEDENT ([facility] Respiratory rate 18 /min 18 /min MEDENT ( [facility] Heart rate 109 /min 109 /min MEDENT ([facility] [place] body weight 130 [lb_av] 130 [lb_av] MEDEN T ([facility] Body mass index (BMI) [Ratio] 31.8 kg/m2 31.8 k g/m2 MEDENT ([facility] Oxygen saturation in Arterial blood by Pulse oximetry 97 % 97 % MEDENT ([facility] Systolic blood pressure 126 mm[Hg] 126 mm[Hg] M EDENT ([facility]) sitting Diastolic blood pressure 74 mm[Hg] 74 mm[Hg] MEDENT ([facility]) sitting Body weight 168.00 [lb_av] 168.00 [lb_av] MEDEN T ([facility]) Body height 64 [in_i] 64 [in_i] MEDENT ([facility]) 5'4" Body mass index (BMI) [Ratio] 28.8 kg/m2 28.8 k g/m2 MEDENT ([facility]) Heart rate 68 /min 68 /min MEDENT ([facility]) Regular Respiratory rate 16 /min 16 /min MEDENT ( [facility]) Systolic blood pressure 128 mm[Hg] 128 mm[Hg] M EDENT ([facility]) sitting, regular cuff Diastolic blood pressure 74 mm[Hg] 74 mm[Hg] MEDENT ([facility]) sitting, regular cuff Heart rate 104 /min 104 /min MEDENT ([facility] Systolic blood pressure 124 mm[Hg] 124 mm[Hg] M EDENT ([facility] Diastolic blood pressure 76 mm[Hg] 76 mm[Hg] MEDENT ([facility] Body temperature 98.9 [degF] 98.9 [degF] MEDENT ([facility] Respiratory rate 20 /min 20 /min MEDENT ( [facility] Body height 64.25 [in_i] 64.25 [in_i] MEDENT ([facility] 5'4.25" Body weight 181.00 [lb_av] 181.00 [lb_av] MEDEN T ([facility] [place] body weight 130 [lb_av] 130 [lb_av] MEDEN T ([facility] Body mass index (BMI) [Ratio] 30.8 kg/m2 30.8 k g/m2 MEDENT ([facility] Oxygen saturation in Arterial blood by Pulse oximetry 93 % 93 % MEDENT ([facility] Heart rate 80 /min 80 /min MEDENT ([facility] Respiratory rate 14 /min 14 /min MEDENT ( [facility] Body height 64.25 [in_i] 64.25 [in_i] MEDENT [facility] 5'4.25" Systolic blood pressure 124 mm[Hg] 124 mm[Hg] M JUDY ([facility] Diastolic blood pressure 78 mm[Hg] 78 mm[Hg] NAYA ([facility] Body temperature 98.4 [degF] 98.4 [degF] NAYA ([facility] Body weight 179.00 [lb_av] 179.00 [lb_av] MIGUELEN T ([facility] [place] body weight 130 [lb_av] 130 [lb_av] MEDEN T ([facility] Body mass index (BMI) [Ratio] 30.5 kg/m2 30.5 k g/m2 NAYA ([facility] Oxygen saturation in Arterial blood by Pulse oximetry 97 % 97 % NAYA ([facility]
== END 2021-05-05 23:07 | disposition home or self-care (01) ==
LOC: M ED 12:28
DX: K03.81 Cracked tooth (principal); K04.7 Periapical abscess without sinus; F84.0 Autistic disorder; G91.9 Hydrocephalus, unspecified; Z88.0 Allergy status to penicillin
CPT/HCPCS: 36415; 80048; 85025; 85652; 86140; 87040; 96372; 99283; J0696; J1885

== ENCOUNTER → 2021-05-19 | Outpatient (CLI) | payer MEDICAID ==
[~2021-05-19] MED LIST: CLEO300C2 PO; MAGICMW SSP
--- NOTE | 2021-05-19 14:49 | REP ---
INDICATION: DYSPNEA, UNSPECIFIED. COMPARISON: 07/13/2011 TECHNIQUE: PA and lateral FINDINGS: Cardiomediastinal silhouette is unchanged. Note is again made of cardiomegaly and previous median sternotomy. Note is again made of previous aortic valvular replacement. Note is again made of a UROLOGY PHYSICIAN shunt on the right. It is discontiguous in the right neck. Subtle increased interstitial markings are seen in the right lower lobe. Lung poole are otherwise clear and stable. The pleural angles are again seen to be sharp. There is no change in the osseous structures. IMPRESSION: 1. Cardiomegaly. 2. Asymmetric pulmonary edema or possibly early right lower lobe pneumonia. 3. UROLOGY PHYSICIAN shunt as described above. <Electronically signed by Facundo Dejesus > 05/19/21 [id number]
== END ==
LOC: M PLAIMG 14:25
PROVIDERS: ATTEND Physician Assistant
DX: I51.7 Cardiomegaly (principal); R91.8 Other nonspecific abnormal finding of lung field; R06.00 Dyspnea, unspecified

== ENCOUNTER → 2022-10-07 | Outpatient (CLI) | payer MEDICAID ==
[2022-10-07 17:28] LABS: BASO # 0.1 10^3/uL (0.0-0.2); BASO % 1.1 % (0.0-1.0); EOS # 0.5 10^3/uL (0.0-0.5); EOS % 6.7 % (0.0-3.0); HEMATOCRIT 46.2 % (42.0-52.0); HEMOGLOBIN 15.2 g/dl (13.5-17.5); LYMPH # 1.4 10^3/uL (1.5-5.0); MEAN CORPUSCULAR HEMOGLOBIN 28.1 pg (27.0-33.0); MEAN CORPUSCULAR HGB CONC 32.9 g/dl (32.0-36.5); MEAN CORPUSCULAR VOLUME 85.4 fl (80.0-96.0); MONO # 0.6 10^3/uL (0.0-0.8); MONO % 7.9 % (2.0-8.0); NEUTROPHILS # 4.9 10^3/uL (1.5-8.5); PLATELET COUNT, AUTOMATED 154 10^3/uL (150-450); RED BLOOD COUNT 5.41 10^6/uL (4.30-6.10); WHITE BLOOD COUNT 7.6 10^3/uL (4.0-10.0)
== END ==
LOC: M PLAIMG 12:23
PROVIDERS: ATTEND Internal Medicine Pulmonary Disease
DX: I35.0 Nonrheumatic aortic (valve) stenosis (principal); J98.01 Acute bronchospasm

== ENCOUNTER → 2022-12-14 | Outpatient (CLI) | payer MEDICAID | LOC: M RAD 17:29 | PROVIDERS: ATTEND Nurse Practitioner Family | DX: K80.80 Other cholelithiasis without obstruction (principal); R16.1 Splenomegaly, not elsewhere classified ==

== ENCOUNTER 2023-03-08 06:29 | Day surgery (SDC) | payer MEDICAID ==
[~2023-03-08] VITALS: Ht 167.6 cm; Wt 74.9 kg
[~2023-03-08 06:29] MED LIST changes: +ALBU0.63 INH; +ALBU8.5H INH; +ASPI-255 PO; +ASPI81TA26 PO; +BSS IRRIG/VANCO(10MG)/TOBRA(5MG)/EPINEPH(1:1000-0.5CC)500ML BAG-ORONLY IR ONE; +CLIN150C17 PO; +CYCLOPENTOLATE 1% OPHTH SOLN 2ML BTL OS SCH; +HYDR-643 PO; +KP F1200 PO; +LIDOCAINE 3.5 % 1ML OPHTH TOPICAL GEL OU ONE; +LORA-243 PO; +METO50TA7 PO; +MM S100C PO; +MONT10TA97 PO; +OFLOXACIN 0.3 % (OCUFLOX) OPTH SOL 5ML OS ONE; +OMEP1CAP73 PO; +PHENYLEPHRINE 10% OPHTH SOL 5ML OS PRN; +PHENYLEPHRINE 2.5% OPHTH SOL 2ML OS SCH; +PULM0.5S INH; +SUCR1SS PO; +SYMB16INH INH; +TORS10TA3 PO; +TROPICAMIDE 1% OPHTH SOLN 15ML OS SCH; +URSO1TAB7 PO
[2023-03-08] MEDS ORDERED: LIDOCAINE 1% SDV 5ML VIAL As Ordered ONE (06:49)
[2023-03-08] MEDS ORDERED: fentaNYL 100 MCG/2 ML INJECTION As Ordered ONE (07:00)
[2023-03-08] MEDS ORDERED: MIDAZOLAM INJ 2MG/2ML VIAL As Ordered ONE ×2 (07:01→08:48)
[2023-03-08] MEDS ORDERED: TOBRADEX OPHTH OINT 3.5 GM As Ordered ONE (08:50)
[2023-03-08 08:58] VITALS: BP 139/75; TEMP 97.6; O2SAT 96
== END 2023-03-08 09:15 | disposition home or self-care (01) ==
LOC: M SDC 06:29
PROVIDERS: ATTEND Ophthalmology
DX: H25.12 Age-related nuclear cataract, left eye (principal); I50.32 Chronic diastolic (congestive) heart failure; I11.0 Hypertensive heart disease with heart failure; E78.00 Pure hypercholesterolemia, unspecified; K76.0 Fatty (change of) liver, not elsewhere classified; K21.9 Gastro-esophageal reflux disease without esophagitis; G40.909 Epilepsy, unspecified, not intractable, without status epilepticus; Z79.52 Long term (current) use of systemic steroids; Z79.899 Other long term (current) drug therapy; Z79.82 Long term (current) use of aspirin; Q23.1 Congenital insufficiency of aortic valve; Z88.0 Allergy status to penicillin; Z95.4 Presence of other heart-valve replacement
CPT/HCPCS: 66984; J2250; J3010

== ENCOUNTER → 2024-07-26 | Outpatient (CLI) | payer MEDICAID ==
[~2024-07-26] MED LIST changes: -BSS IRRIG/VANCO(10MG)/TOBRA(5MG)/EPINEPH(1:1000-0.5CC)500ML BAG-ORONLY IR ONE; -CYCLOPENTOLATE 1% OPHTH SOLN 2ML BTL OS SCH; +ISOVUE-370 76% 100ML VIAL As Ordered ONE; -LIDOCAINE 3.5 % 1ML OPHTH TOPICAL GEL OU ONE; -OFLOXACIN 0.3 % (OCUFLOX) OPTH SOL 5ML OS ONE; -PHENYLEPHRINE 10% OPHTH SOL 5ML OS PRN; -PHENYLEPHRINE 2.5% OPHTH SOL 2ML OS SCH; -TROPICAMIDE 1% OPHTH SOLN 15ML OS SCH
== END ==
LOC: M RAD 12:59
DX: K76.89 Other specified diseases of liver (principal); L29.89 Other pruritus; R94.5 Abnormal results of liver function studies; R19.7 Diarrhea, unspecified; K44.9 Diaphragmatic hernia without obstruction or gangrene; K74.60 Unspecified cirrhosis of liver; R16.1 Splenomegaly, not elsewhere classified; K80.20 Calculus of gallbladder without cholecystitis without obstruction
CPT/HCPCS: 74170; Q9967

== ENCOUNTER 2025-02-04 10:09 | Emergency (ER) | payer MEDICAID ==
[~2025-02-04] VITALS: Ht 162.6 cm; Wt 68.7 kg
[~2025-02-04 10:09] MED LIST changes: -ISOVUE-370 76% 100ML VIAL As Ordered ONE; -URSO1TAB7 PO; +URSO250T14 PO
[2025-02-04 11:57] LABS: BASO # 0.1 10^3/uL (0.0-0.2); BASO % 1.1 % (0.0-1.0); EOS # 0.2 10^3/uL (0.0-0.5); EOS % 3.4 % (0.0-3.0); LYMPH # 1.0 10^3/uL (1.5-5.0); LYMPH % 15.0 % (24.0-44.0); MONO # 0.5 10^3/uL (0.0-0.8); MONO % 8.1 % (2.0-8.0); NEUTROPHILS # 4.6 10^3/uL (1.5-8.5); NEUTROPHILS % 72.1 % (36.0-66.0); PLATELET COUNT, AUTOMATED 111 10^3/uL (150-450)
[2025-02-04 12:10] LABS: INR 1.51
[2025-02-04 12:18] LABS: ERYTHROCYTE SEDIMENTATION RATE 24 mm/hr (0-15)
[2025-02-04 12:20] LABS: ALT/SGPT 66 U/L (7.0-40); ALT/SGPT 66.0 U/L (7.0-40); AST/SGOT 137 U/L (<34); AST/SGOT 137.0 U/L (<34); C REACTIVE PROTEIN QUANTITATIV 2.20 MG/DL (<1.0); CALCIUM LEVEL 8.2 MG/DL (8.5-10.1); CARBON DIOXIDE LEVEL 24 MMOL/L (20-31); CHLORIDE LEVEL 107 MMOL/L (98-107); CREATININE FOR GFR 0.80 MG/DL (0.70-1.30); GLOMERULAR FILTRATION RATE > 90.0 (>60); POTASSIUM SERUM 3.8 MMOL/L (3.5-5.1); SODIUM LEVEL 142 MMOL/L (136-145)
[2025-02-04] MEDS: IPRATROPIUM 0.5 MG/ALBUTEROL 2.5 MG INH SOL UD 3 ML NEB ONE (14:40)
[2025-02-04] MEDS ORDERED: CEPH500C PO (17:00)
[2025-02-04 17:37] VITALS: BP 112/59; TEMP 98.3; O2SAT 98
== END 2025-02-04 18:02 | disposition home or self-care (01) ==
LOC: M ED 10:09
DX: K74.60 Unspecified cirrhosis of liver (principal); S91.302A Unspecified open wound, left foot, initial encounter; X58.XXXA Exposure to other specified factors, initial encounter; Y92.9 Unspecified place or not applicable; Y93.9 Activity, unspecified; Y99.9 Unspecified external cause status; R18.8 Other ascites; K80.20 Calculus of gallbladder without cholecystitis without obstruction; M77.32 Calcaneal spur, left foot; I10 Essential (primary) hypertension; R56.9 Unspecified convulsions; J45.909 Unspecified asthma, uncomplicated; K21.9 Gastro-esophageal reflux disease without esophagitis; K76.0 Fatty (change of) liver, not elsewhere classified; Z79.82 Long term (current) use of aspirin; Z79.899 Other long term (current) drug therapy; Z88.0 Allergy status to penicillin

== ENCOUNTER → 2025-02-16 | Outpatient (CLI) | payer MEDICAID ==
[~2025-02-16] MED LIST changes: +CEPH500C PO
== END ==
LOC: M CARPUL 10:41
PROVIDERS: ATTEND Physician Assistant
DX: Q23.1 Congenital insufficiency of aortic valve (principal); Z95.4 Presence of other heart-valve replacement; I50.32 Chronic diastolic (congestive) heart failure; I77.810 Thoracic aortic ectasia; I34.0 Nonrheumatic mitral (valve) insufficiency; I36.1 Nonrheumatic tricuspid (valve) insufficiency

== ENCOUNTER → 2025-03-26 | Outpatient (REF) | payer MEDICAID | LOC: M SFHCDERM 17:23 | PROVIDERS: ATTEND Physician Assistant | DX: L97.522 Non-pressure chronic ulcer of other part of left foot with fat layer exposed (principal); I96 Gangrene, not elsewhere classified ==

== ENCOUNTER 2025-04-19 18:48 | Emergency (ER) | payer MEDICAID ==
[~2025-04-19] VITALS: Ht 167.6 cm; Wt 54.8 kg
[2025-04-19 20:06] LABS: BASO # 0.1 10^3/uL (0.0-0.2); BASO % 0.5 % (0.0-1.0); EOS # 0.3 10^3/uL (0.0-0.5); EOS % 1.9 % (0.0-3.0); LYMPH # 1.6 10^3/uL (1.5-5.0); LYMPH % 11.3 % (24.0-44.0); MONO # 1.1 10^3/uL (0.0-0.8); MONO % 7.5 % (2.0-8.0); NEUTROPHILS # 11.2 10^3/uL (1.5-8.5); NEUTROPHILS % 77.3 % (36.0-66.0); PLATELET COUNT, AUTOMATED 146 10^3/uL (150-450)
[2025-04-19 21:13] LABS: ALT/SGPT 200.0 U/L (7.0-40); AST/SGOT 259.0 U/L (<34); CALCIUM LEVEL 8.7 MG/DL (8.5-10.1); CARBON DIOXIDE LEVEL 24.0 MMOL/L (20-31); CHLORIDE LEVEL 93.0 MMOL/L (98-107); CREATININE FOR GFR 1.09 MG/DL (0.70-1.30); GLOMERULAR FILTRATION RATE 86.4 (>60); POTASSIUM SERUM 4.1 MMOL/L (3.5-5.1); SODIUM LEVEL 128.0 MMOL/L (136-145)
[2025-04-19] MEDS: NS 500 ML IV ONE (21:26)
[2025-04-19 21:34] LABS: C REACTIVE PROTEIN QUANTITATIV 3.78 MG/DL (<1.0)
[2025-04-19 21:52] LABS: INR 3.39
[2025-04-19] MEDS ORDERED: ISOVUE-370 76% 100 ML VIAL As Ordered ONE (22:05)
[2025-04-19 22:07] LABS: KETONE, URINE AUTO RFX NEGATIVE (NEGATIVE); LEUKOCYTE ESTERASE UR AUTO RFX NEGATIVE (NEGATIVE); MUCUS, URINE RFX SMALL (NEGATIVE); NITRITE, URINE AUTO RFX NEGATIVE (NEGATIVE); RBC, URINE AUTO RFX 1 /HPF (0-3); SQUAM EPITHELIAL CELL UR AURFX 0 /HPF (0-6); WBC, URINE AUTO RFX 6 /HPF (0-3)
[2025-04-19] MEDS: cefTRIAXone SOD 2 GM in DEXTROSE 5% (D5W) ADV/MINI-BAG 50 ML IV ONE (23:27)
[2025-04-20] MEDS: NS (Normal Saline) 0.9% 1,000 ML IV SCH (01:06)
[2025-04-20 09:00] VITALS: BP 107/58; TEMP 97.6; O2SAT 95
== END 2025-04-20 09:15 | disposition short-term general hospital (02) ==
LOC: M ED 18:48
DX: J18.9 Pneumonia, unspecified organism (principal); K72.00 Acute and subacute hepatic failure without coma; I51.9 Heart disease, unspecified; J45.909 Unspecified asthma, uncomplicated; E78.5 Hyperlipidemia, unspecified; K44.9 Diaphragmatic hernia without obstruction or gangrene; G91.9 Hydrocephalus, unspecified; K80.20 Calculus of gallbladder without cholecystitis without obstruction; R18.8 Other ascites; K70.9 Alcoholic liver disease, unspecified; Z98.2 Presence of cerebrospinal fluid drainage device; Z95.2 Presence of prosthetic heart valve; F79 Unspecified intellectual disabilities; Z79.82 Long term (current) use of aspirin; Z79.899 Other long term (current) drug therapy; Z88.0 Allergy status to penicillin
CPT/HCPCS: 71045; 71260; 74177; 76705; 80047; 80048; 80076; 81001; 82140; 83605; 83690; 84145; 85025; 85610; 85730; 86140; 87040; 87486; 87581; 87633; 87798; 96361; 96374; 99285; J0696; Q9967